=== PATIENT | male | born 1965 | race Caucasian/White ===

== ENCOUNTER → 2017-01-08 | Outpatient (CLI) | payer OTHER | LOC: BHCLAF 13:30 | PROVIDERS: ATTEND Internal Medicine Cardiovascular Disease | DX: I10 Essential (primary) hypertension (principal); G47.33 Obstructive sleep apnea (adult) (pediatric); E11.9 Type 2 diabetes mellitus without complications; E78.5 Hyperlipidemia, unspecified | CPT/HCPCS: 93005-PO ==

== ENCOUNTER → 2017-01-14 | Outpatient (CLI) | payer OTHER | LOC: BHFA 13:00 | PROVIDERS: ATTEND Internal Medicine Cardiovascular Disease | DX: Z01.810 Encounter for preprocedural cardiovascular examination (principal); I10 Essential (primary) hypertension | CPT/HCPCS: 78452; 93017; A9500; J2785 ==

== ENCOUNTER 2017-02-08 05:45 | Inpatient (IN) | payer OTHER ==
[2017-01-10 10:58] LABS: % IMMATURE GRANULYOCYTES 0.5 % (0.0-1.1); ABSOLUTE IMMATURE GRANULOCYTES 0.03 10^3/uL (0.00-0.10); ADD DIFF? NO; ADD MORPH? NO; ADD SCAN? NO; ATYPICAL LYMPHOCYTE FLAG 0 (0-99); FRAGMENT RBC FLAG 0 (0-99); HEMATOCRIT 44.4 % (40.0-51.0); HEMOGLOBIN 15.7 g/dL (13.7-17.5); LEFT SHIFT FLG 0 (0-99); LIPEMIA HEMOLYSIS FLAG 90 (0-99); MEAN CELL HEMOGLOBIN CONCENTR. 35.4 g/dL (32.4-36.7); MEAN CELL VOLUME 90.4 fL (81.5-99.8); MEAN PLATELET VOLUME 10.1 fL (8.7-11.7); PLATELET CLUMPS FLAG 0 (0-99); PLATELET COUNT 173 10^3/uL (150-400); RED BLOOD CELL COUNT 4.91 10^6/uL (4.40-6.38); RED CELL DISTRIBUTION WIDTH 12.9 % (11.5-15.2)
[2017-01-10 11:27] LABS: ANION GAP 12 mEq/L (8-16); CALCIUM 9.9 mg/dL (8.5-10.4); CARBON DIOXIDE 27 mEq/l (22-31); CHLORIDE 100 mEq/L (97-110); CREATININE 1.1 mg/dL (0.7-1.3); GLOMERULAR FILTRATION RATE > 60; GLUCOSE 162 mg/dL (70-100); POTASSIUM 4.7 mEq/L (3.5-5.2); SODIUM 139 mEq/L (134-144)
[2017-02-08] MEDS ORDERED: CHLORHEXIDINE GLUC HIBICLENS 118 ML BTL TP ONE (06:00)
[2017-02-08] MEDS ORDERED: ceFAZolin 3 GM in D5W 100 ML IV ONE (06:00)
[2017-02-08] MEDS ORDERED: LIDOCAINE 1% 5 ML SDV ONE (06:02)
[2017-02-08] MEDS ORDERED: MIDAZOLAM 2 MG/2 ML VIAL ONE (07:01)
[2017-02-08] MEDS ORDERED: THROMBIN (BOVINE) 20,000 UNIT VIAL TP ONE (07:06)
[2017-02-08] MEDS ORDERED: BACITRACIN 50,000 UNITS/10 ML SYR IRR ONE (07:06)
[2017-02-08] MEDS ORDERED: BUPIVACAINE 0.5% 30 ML SDV ONE (07:06)
[2017-02-08] MEDS ORDERED: CITRATE DEXTROSE SOLN 500 ML BAG ONE (07:07)
[2017-02-08] MEDS ORDERED: LIDOCAINE 1% 5 ML SDV ID PRN (07:19)
[2017-02-08] MEDS ORDERED: LR 1,000 ML IV ONE (07:19)
[2017-02-08] MEDS ORDERED: REMIFENTANIL HCL 1 MG VIAL ONE ×2 (07:25→09:40)
[2017-02-08] MEDS ORDERED: fentaNYL 250 MCG/5 ML INJ ONE (07:25)
[2017-02-08] MEDS ORDERED: KETAMINE 100 MG/10 ML SYR IVP ONE (07:25)
[2017-02-08] MEDS ORDERED: PROPOFOL 200 MG/20 ML VIAL ONE (07:26)
[2017-02-08] MEDS ORDERED: PROPOFOL/EMULSION 500 MG/50 ML BOTTLE IV ONE ×2 (07:26→09:40)
[2017-02-08] MEDS ORDERED: ROCURONIUM 50 MG/5 ML VIAL ONE ×2 (08:02)
[2017-02-08] MEDS ORDERED: ROCURONIUM 100 MG/10 ML VIAL ONE (08:10)
[2017-02-08] MEDS ORDERED: HYDROmorphONE/DILAUDID 2 MG/ML INJ ONE (10:53)
[2017-02-08] MEDS ORDERED: MAGNESIUM HYDROXIDE 30 ML UDCUP PO PRN (11:25)
[2017-02-08] MEDS ORDERED: ONDANSETRON DISINTEGRATING 4 MG TAB PO PRN (11:25)
[2017-02-08] MEDS ORDERED: ONDANSETRON 4 MG/2 ML VIAL IVP PRN (11:25)
[2017-02-08] MEDS ORDERED: diphenhydrAMINE 25 MG CAP PO PRN (11:25)
[2017-02-08] MEDS ORDERED: DIAZEPAM 10 MG/2 ML SYR IVP PRN (11:25)
[2017-02-08] MEDS ORDERED: LACTULOSE 20 GM/30 ML UDCUP PO PRN (11:25)
[2017-02-08] MEDS ORDERED: BISACODYL 10 MG SUPP PR PRN (11:25)
[2017-02-08] MEDS ORDERED: HYDROmorphONE/DILAUDID 1 MG/ML SYR IVP PRN (11:25)
[2017-02-08] MEDS ORDERED: METHOCARBAMOL 750 MG TAB PO PRN (11:25)
--- NOTE | 2017-02-08 11:27 | GOP ---
[f rep st] OPERATIVE REPORT DATE OF OPERATION: 02/08/2017 SURGEON: David Concepcion MD CO-SURGEON: Hussain Cline MD MOLD TOOLING TECHNICIAN: lAka Carrasco PA-C ANESTHESIA: General. PREOPERATIVE DIAGNOSIS: 1. History of lumbar spinal fusion L3-S1 with pseudoarthrosis at L5-S1. 2. 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 3. Intractable back pain and left lower extremity radiculopathy. 4. Treatment refractory to nonoperative intervention. POSTOPERATIVE DIAGNOSIS: 1. History of lumbar spinal fusion L3-S1 with pseudoarthrosis and hardware failure at L5-S1. 2. 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 3. Intractable back pain and left lower extremity radiculopathy. 4. Treatment refractory to nonoperative intervention. PROCEDURE PERFORMED: 1. Re-do anterior L5-S1 lumbar diskectomy with exploration of spinal fusion, removal of interbody cage and Interbody fusion using an 18 mm, 12 degree perimeter PEEK cage filled with morselized autograft. 2. Anterior lumbar fusion L5-S1 with a Medtronic Pivox plate. 3. Use of intraoperative fluoroscopy, less than 1 hour physician time. 4. Use of neuromonitoring. FINDINGS: Per imaging. SPECIMENS: The interbody cage was sent to Pathology for gross specimen. ESTIMATED BLOOD LOSS: 100 mL. INDICATIONS: The patient is a 52-year-old gentleman who has undergone a prior L3-S1 fusion back in 2014. He did well for some time and then noted worsening leg pain with back pain. Imaging studies demonstrated a pseudoarthrosis at L5- S1 with loose hardware and a recurrent disk herniation at the L5-S1 level on the left side with foraminal and nerve compression. After discussion of the risks, benefits, and treatment alternatives, and after failing nonoperative intervention, we decided to proceed forth with the surgery as described above. DESCRIPTION OF PROCEDURE: Patient was brought to the operating theater and underwent general endotracheal anesthesia without complications. He had Venodyne's, DAMON hose, and appropriate lines placed by Anesthesia. The patient was maintained supine on the operating room table and a small bump placed under the small of his lumbar spine. Using lateral fluoroscopy, Dr. Hussain Cline and his team marked out an anterior abdominal incision which would give us the best approach to the L5-S1 level. This was marked. The anterior abdomen was then prepped and draped in usual sterile surgical fashion. A time-out was completed per protocol. The patient received antibiotics within [address] Cline and his team will then dictate in a separate operative report the anterior approach to the L5-S1 level. Once we confirmed the level, our team was called into the surgical room. At this point, we completed a re-do L5-S1 diskectomy with the use of the 11 blade and curettes and Kerrison punches. We explored the fusion and noted that the interbody cage was in broken in several fragments. We removed the previous fragmented cage and sent it off to Pathology for gross analysis. We then completed a discectomy and prepared the cartilaginous endplates. We measured the interbody space and placed an 18 mm, 12 degree perimeter PEEK cage filled with morselized autograft into the L5-S1 disk space. We achieved excellent distraction of the foramina bilaterally in comparison to his pre-imaging films. At this point, we secured a large Medtronic Pivox plate onto the vertebral bodies of L5 and S1 with 1 screw into L5 and 1 screw into S1. There was a large osteophyte on the inferior aspect of the L5 vertebral body near the endplate, but I could not drill this down secondary to the fact that the vasculature was lying over the osteophyte and was tethered to this area by scar and inflammatory tissue. AP and lateral x- rays demonstrated excellent placement of the hardware. At this point, Dr. Cline his team will dictate in a separate op report the abdominal closure. There were no complications and neuromonitoring was stable throughout. COMPLICATIONS: None. /[id number]/MODL MTDD
[2017-02-08] MEDS ORDERED: FLUTICASONE NASAL 120 SPRAYS/16 GM MDI EACHNARE PRN (11:29)
[2017-02-08] MEDS ORDERED: COLCHICINE 0.6 MG CAP/TAB PO PRN (11:29)
[2017-02-08] MEDS ORDERED: NON-FORMULARY NEW DRUG (Propylene Glycol [Systane Balance] 1 DROP) EACHEYE PRN (11:29)
[2017-02-08] MEDS ORDERED: fentaNYL 100 MCG/2 ML INJ ONE (11:33)
[2017-02-08] MEDS ORDERED: NON-FORMULARY NEW DRUG (Dextroamphetamine/Amphetamine [Adderall 30 Mg Tablet] 30 MG) PO SCH (12:00)
[2017-02-08] MEDS: clonazePAM 0.5 MG TAB PO SCH ×2 (14:00→17:36)
[2017-02-08] MEDS ORDERED: ZIPRASIDONE HCL 80 MG PO SCH (14:00)
[2017-02-08] MEDS: ZIPRASIDONE HCL 80 MG PO SCH ×3 (14:00→20:14)
[2017-02-08] MEDS: GABAPENTIN 300 MG CAP PO SCH ×2 (14:00→20:02)
[2017-02-08] MEDS: ACETAMINOPHEN 325 MG TAB PO PRN (14:25)
[2017-02-08] MEDS: oxyCODONE IR 5 MG TAB PO PRN ×2 (14:26→22:44)
[2017-02-08] MEDS: DIVALPROEX NA 500 MG TAB PO SCH ×2 (17:32→20:02)
[2017-02-08] MEDS: METOPROLOL TARTRATE 100 MG TAB PO SCH (17:32)
[2017-02-08] MEDS: ALLOPURINOL 300 MG TAB PO SCH (17:32)
--- NOTE | 2017-02-08 17:35 | POSTOPPROG ---
Post Op Note Date of Operation: 02/08/17 Surgeon: David Concepcion Media Professional: BRISEIDA Carrasco PAC Anesthesia: GET(General Endotracheal) Pre-op Diagnosis: Pseudoarthrosis, lumbar stenosis Post-op Diagnosis: Pseudoarthrosis, lumbar stenosis Indication: failure of medical management, pseudoarthrosis, lumbar stenosis Procedure: L5/S1 ALIF Inf/Abcess present in the surg proc area at time of surgery?: No EBL: Minimal PA Addendum - Addendum .: S: leg pain improved O: NAD A&Ox3 MAEx4 5/5 and equal in BUE and BLE Abd soft, dressing c/d/i A/P 52y/o male s/p L5/S1 ALIF -Diet per general surgery -Optimize pain management -PT/OT -DVT prophx: TEDs, SCDs, Lovenox okay POD1 -Post op xrays pending -Please notify NS with any change in neuro/motor exam
[2017-02-08] MEDS: DOXAZOSIN MESYLATE 4 MG TAB PO SCH (20:01)
[2017-02-08] MEDS: SENNOSIDES/DOCUSATE SODIUM TAB PO SCH (20:03)
[2017-02-08] MEDS: BENZTROPINE MESYLATE 1 MG TAB PO SCH (20:05)
[2017-02-08] MEDS: ATORVASTATIN CALCIUM 20 MG TAB PO SCH (20:05)
[2017-02-08] MEDS: (Melatonin [Melatonin] 10 MG) PO SCH (20:08)
[2017-02-08] MEDS: tiZANidine HCL 2 MG TAB PO SCH (20:20)
[2017-02-08] MEDS: AMANTADINE HCL 100 MG CAP PO SCH (20:21)
[2017-02-08] MEDS ORDERED: (Melatonin [Melatonin] 10 MG) PO SCH ×2 (21:00)
[2017-02-08] MEDS ORDERED: MELATONIN 10 MG PO SCH (21:00)
[2017-02-08] MEDS ORDERED: AMANTADINE HCL 100 MG CAP PO SCH (21:00)
[2017-02-08] MEDS ORDERED: FAMOTIDINE 20 MG/NACL 50 ML IV SCH (21:00)
[2017-02-08] MEDS: DIAZEPAM 5 MG TAB PO PRN (22:37)
--- NOTE | 2017-02-09 00:14 | GOP ---
[f rep st] OPERATIVE REPORT DATE OF OPERATION: 02/08/2017 SURGEON: Hussain Cline MD ANESTHESIA: General endotracheal anesthesia. ANESTHESIOLOGIST: Dr. Marroquin. PREOPERATIVE DIAGNOSIS: Spinal instability with pseudoarthrosis L5-S1 joint. POSTOPERATIVE DIAGNOSIS: Spinal instability with pseudoarthrosis L5-S1 joint. PROCEDURE PERFORMED: Anterior spine exposure of the L5-S1 joint. FINDINGS: ESTIMATED BLOOD LOSS: Negligible from my portion of the procedure. DESCRIPTION OF PROCEDURE: The patient was taken to the operating room and received a satisfactory general endotracheal anesthesia by Dr. Marroquin. He was placed in the supine position, prepped and draped in the usual sterile fashion. A Pfannenstiel-type lower abdominal incision was made and carried through the subcutaneous tissue. Rectus sheath was incised bilaterally, and the rectus sheath was elevated up off the rectus muscles above and below the incision. The peritoneum was then entered in the midline, and the rectus muscles were retracted laterally. The small bowel and colon were packed away. The retroperitoneum was entered over the sacral prominence. The sacral vessels were multiply hemoclipped and divided, and the L5-S1 joint space was identified fluoroscopically, and then further exposed. The left common iliac vein was mobilized and retracted cephalad, as was the right iliac artery. Adequate exposure was achieved using the Omni retractor for surgery on the anterior disk space. Hemostasis was assured. The case was then turned over to Dr. Concepcion for anterior fusion. That was completed. We then closed the retroperitoneum with a running 2-0 Vicryl suture. The peritoneum was closed with a running 0 Vicryl suture. The fascia was closed with #1 PDS suture for the rectus sheath. The skin was closed with skin dhaval. The wound was infiltrated with 0.5% Marcaine. He tolerated the procedure quite well. COMPLICATIONS: No complications. DISPOSITION: He was taken to the recovery room in good condition. /[id number]/MODL MTDD
[2017-02-09] MEDS: ACETAMINOPHEN 325 MG TAB PO PRN ×2 (05:11→23:29)
[2017-02-09] MEDS: oxyCODONE IR 5 MG TAB PO PRN ×2 (06:29→12:50)
[2017-02-09] MEDS ORDERED: AMPHETAMINE PO SCH (07:00)
[2017-02-09] MEDS: clonazePAM 0.5 MG TAB PO SCH ×3 (07:26→18:16)
[2017-02-09] MEDS: tiZANidine HCL 2 MG TAB PO SCH ×2 (07:26→21:37)
[2017-02-09] MEDS: GABAPENTIN 300 MG CAP PO SCH ×3 (07:27→21:37)
[2017-02-09] MEDS: METOPROLOL TARTRATE 100 MG TAB PO SCH ×2 (07:27→18:48)
[2017-02-09] MEDS: BENZTROPINE MESYLATE 1 MG TAB PO SCH ×2 (07:27→21:38)
[2017-02-09] MEDS: ALLOPURINOL 300 MG TAB PO SCH ×2 (07:28→18:16)
[2017-02-09] MEDS: ZIPRASIDONE HCL 80 MG PO SCH ×4 (07:29→21:40)
[2017-02-09] MEDS: NS W/ 20 KCl/L 1,000 ML IV SCH (07:29)
[2017-02-09] MEDS ORDERED: NON-FORMULARY NEW DRUG (Metformin Hcl [Glucophage 1000 Mg] 1,000 MG) PO SCH (08:00)
--- NOTE | 2017-02-09 08:20 | SOAPPROG ---
SOAP Progress Note Assessment/Plan: Assessment: status post anterior spine exposure L5-S1 / wound okay/ abdomen soft / negative flatus Plan: clear liquids 02/09/17 08:19 Objective: Vital Signs Temp Pulse Resp BP Pulse Ox 37.4 C 82 16 166/94 H 93 02/09/17 04:57 02/09/17 04:57 02/09/17 04:57 02/09/17 04:57 02/09/17 04:57 Laboratory Results 01/10/17 10:52 01/10/17 10:52 02/08/17 02/09/17 02/10/17 05:59 05:59 05:59 Intake Total 5170 Output Total 3500 Balance 1670 ICD10 Worksheet Patient Problems: Problems Problem Status Onset SATHISH (acute kidney injury) Acute Arthrodesis status Acute Diabetes Acute HTN (hypertension) Acute Lumbago due to displacement of intervertebral disc Acute Lumbar stenosis Acute Pain Acute
[2017-02-09] MEDS: metFORMIN HCL 500 MG TAB PO SCH ×2 (08:42→18:16)
[2017-02-09] MEDS: SENNOSIDES/DOCUSATE SODIUM TAB PO SCH ×2 (08:42→21:39)
[2017-02-09] MEDS: FAMOTIDINE 20 MG TAB PO SCH ×2 (08:43→21:39)
[2017-02-09] MEDS: AMPHETAMINE PO SCH ×4 (09:29→12:53)
--- NOTE | 2017-02-09 10:29 | SOAPPROG ---
SOAP Progress Note Assessment/Plan: Assessment: POD1 s/p L5-S1 ALIF -Xrays -pain control -diet per gen surgery -hold lovenox at midnight saturday for surgery saturday -PT/OT -TEDS/SCD's, lovenox Please call with change in neuro status 02/09/17 10:25 Subjective: Doing well, leg pain completely resolved, pain well controlled, No complaints this AM Objective: Vital Signs Temp Pulse Resp BP Pulse Ox 36.4 C 72 16 99/52 L 93 02/09/17 08:19 02/09/17 08:19 02/09/17 08:19 02/09/17 08:19 02/09/17 08:19 Laboratory Results 01/10/17 10:52 01/10/17 10:52 02/08/17 02/09/17 02/10/17 05:59 05:59 05:59 Intake Total 5170 Output Total 3500 Balance 1670 AandOx3, wearing CPAP, MAEWx 4 03/15 ICD10 Worksheet Patient Problems: Problems Problem Status Onset SATHISH (acute kidney injury) Acute Arthrodesis status Acute Diabetes Acute HTN (hypertension) Acute Lumbago due to displacement of intervertebral disc Acute Lumbar stenosis Acute Pain Acute
[2017-02-09] MEDS: LISINOPRIL 40 MG TAB PO SCH (10:37)
[2017-02-09] MEDS: ENOXAPARIN 40 MG/0.4 ML SYR SC SCH (12:54)
[2017-02-09] MEDS: DIVALPROEX NA 500 MG TAB PO SCH ×2 (15:01→21:38)
[2017-02-09] MEDS: POLYETHYLENE GLYCOL 3350 17 GM PKT PO PRN (21:36)
[2017-02-09] MEDS: ATORVASTATIN CALCIUM 20 MG TAB PO SCH (21:38)
[2017-02-09] MEDS: DOXAZOSIN MESYLATE 4 MG TAB PO SCH (21:38)
[2017-02-09] MEDS: (Melatonin [Melatonin] 10 MG) PO SCH (21:40)
[2017-02-09] MEDS ORDERED: AMANTADINE HCL 100 MG CAP PO ONE (22:00)
[2017-02-09] MEDS: AMANTADINE HCL 100 MG CAP PO SCH (22:39)
[2017-02-10] MEDS: NS W/ 20 KCl/L 1,000 ML IV SCH (01:27)
[2017-02-10] MEDS: oxyCODONE IR 5 MG TAB PO PRN ×2 (01:27→06:45)
[2017-02-10] MEDS: DIAZEPAM 5 MG TAB PO PRN (01:28)
[2017-02-10] MEDS: BENZTROPINE MESYLATE 1 MG TAB PO SCH ×2 (06:38→20:24)
[2017-02-10] MEDS: METOPROLOL TARTRATE 100 MG TAB PO SCH ×2 (06:39→18:29)
[2017-02-10] MEDS: tiZANidine HCL 2 MG TAB PO SCH ×2 (06:39→20:22)
[2017-02-10] MEDS: ALLOPURINOL 300 MG TAB PO SCH ×2 (06:39→18:29)
[2017-02-10] MEDS: clonazePAM 0.5 MG TAB PO SCH ×3 (06:39→18:29)
[2017-02-10] MEDS: GABAPENTIN 300 MG CAP PO SCH ×3 (06:40→20:24)
[2017-02-10] MEDS: ZIPRASIDONE HCL 80 MG PO SCH ×4 (06:41→20:25)
[2017-02-10] MEDS: POLYETHYLENE GLYCOL 3350 17 GM PKT PO PRN ×2 (07:25→20:20)
[2017-02-10] MEDS: AMPHETAMINE PO SCH ×2 (07:25→13:02)
[2017-02-10] MEDS: LISINOPRIL 40 MG TAB PO SCH (10:11)
[2017-02-10] MEDS: ENOXAPARIN 40 MG/0.4 ML SYR SC SCH (10:11)
[2017-02-10] MEDS: metFORMIN HCL 500 MG TAB PO SCH ×2 (10:11→18:29)
[2017-02-10] MEDS: SENNOSIDES/DOCUSATE SODIUM TAB PO SCH ×2 (10:12→20:22)
[2017-02-10] MEDS: FAMOTIDINE 20 MG TAB PO SCH ×2 (10:13→20:23)
--- NOTE | 2017-02-10 10:33 | SOAPPROG ---
SOAP Progress Note Assessment/Plan: Assessment: POD2 s/p L5-S1 ALIF -Xrays -pain control: well controlled -diet per gen surgery: appreciate management -hold lovenox at midnight saturday for surgery saturday -PT/OT -TEDS/SCD's, lovenox Please call with change in neuro status 02/09/17 10:25 02/10/17 10:31 Subjective: Doing well, pain well controlled, denies leg pain, no new complaints Objective: Vital Signs Temp Pulse Resp BP Pulse Ox 37.7 C 88 16 126/60 H 90 L 02/10/17 09:23 02/10/17 09:23 02/10/17 09:23 02/10/17 09:23 02/10/17 09:23 Laboratory Results 01/10/17 10:52 01/10/17 10:52 02/09/17 02/10/17 02/11/17 05:59 05:59 05:59 Intake Total 5170 750 Output Total 3500 800 Balance 1670 -50 sleeping but easily arousable, AandOx3, CNII-XII intact, MAEWx4 5/5 - Pending Discharge Pending Discharge Within 24 Hours: No ICD10 Worksheet Patient Problems: Problems Problem Status Onset SATHISH (acute kidney injury) Acute Arthrodesis status Acute Diabetes Acute HTN (hypertension) Acute Lumbago due to displacement of intervertebral disc Acute Lumbar stenosis Acute Pain Acute
--- NOTE | 2017-02-10 11:52 | SOAPPROG ---
SOAP Progress Note Assessment/Plan: Assessment: s/p exposure for alif Some flatus Very sleepy Can advance diet when more alert and passing more flatus S: Napping, awakes but falls asleep again CPAP in place BS hypoactive, brace in place. Not tender Plan: 02/10/17 11:51 Objective: Vital Signs Temp Pulse Resp BP Pulse Ox 37.7 C 88 16 126/60 H 90 L 02/10/17 09:23 02/10/17 09:23 02/10/17 09:23 02/10/17 09:23 02/10/17 09:23 Laboratory Results 01/10/17 10:52 01/10/17 10:52 02/09/17 02/10/17 02/11/17 05:59 05:59 05:59 Intake Total 5170 750 Output Total 3500 800 Balance 1670 -50 ICD10 Worksheet Patient Problems: Problems Problem Status Onset SATHISH (acute kidney injury) Acute Arthrodesis status Acute Diabetes Acute HTN (hypertension) Acute Lumbago due to displacement of intervertebral disc Acute Lumbar stenosis Acute Pain Acute
[2017-02-10] MEDS: DIVALPROEX NA 500 MG TAB PO SCH ×2 (16:11→20:23)
[2017-02-10] MEDS: DOXAZOSIN MESYLATE 4 MG TAB PO SCH (20:23)
[2017-02-10] MEDS: ATORVASTATIN CALCIUM 20 MG TAB PO SCH (20:24)
[2017-02-10] MEDS: (Melatonin [Melatonin] 10 MG) PO SCH (20:25)
[2017-02-10] MEDS: AMANTADINE HCL 100 MG CAP PO SCH (20:26)
[2017-02-11 01:07] LABS: BASE EXCESS -1.7 mEq/L (-2.5-2.5); BICARBONATE 23 mEq/L (22-26); MEASURED OXYGEN SATURATION 94 % (92-95); PCO2 41 mmHg (34-38); PO2 73 mmHg (65-75); TCO2 24 mEq/L (23-27)
[2017-02-11 01:11] LABS: CPAP YES
[2017-02-11] MEDS: ZIPRASIDONE HCL 80 MG PO SCH ×4 (06:37→19:58)
[2017-02-11] MEDS: clonazePAM 0.5 MG TAB PO SCH ×3 (06:38→17:29)
[2017-02-11] MEDS: tiZANidine HCL 2 MG TAB PO SCH ×2 (06:38→19:56)
[2017-02-11] MEDS: GABAPENTIN 300 MG CAP PO SCH ×3 (06:38→19:56)
[2017-02-11] MEDS: ALLOPURINOL 300 MG TAB PO SCH ×2 (06:38→17:30)
[2017-02-11] MEDS: METOPROLOL TARTRATE 100 MG TAB PO SCH ×2 (06:38→17:30)
[2017-02-11] MEDS: BENZTROPINE MESYLATE 1 MG TAB PO SCH ×2 (06:39→19:56)
[2017-02-11] MEDS: AMPHETAMINE PO SCH ×2 (08:04→12:52)
--- NOTE | 2017-02-11 08:05 | NEUSURGPN ---
Assessment/Plan: POD3 s/p L5-S1 ALIF -pain control: well controlled -diet per gen surgery: appreciate management -hold lovenox for surgery tomorrow -PT/OT -TEDS/SCD's, lovenox Please call with change in neuro status Subjective: Denies any leg pain Objective: NAD A&Ox3 MAEx4 / and equal in BUE and BLE. Catheter Insertion Date: 02/08/17 - Physician Patient Seen by : Carlene Neurosurgery Physical Exam - Vitals, I&O, Labs I and O 02/10/17 02/11/17 02/12/17 05:59 05:59 05:59 Intake Total 750 250 Output Total 800 Balance -50 250 Intake: Oral (ml) 750 250 Output: Urine (ml) 800 Catheter 800 Other: Intake Quantity Yes Yes Sufficient Number of Voids Catheter 2 Incontinence 1 Toilet 2 Bladder Scan Volume (ml) Catheter 361 Vital Signs Temp Pulse Resp BP Pulse Ox 37.2 C 84 16 102/54 L 91 L 02/11/17 07:46 02/11/17 07:46 02/11/17 07:46 02/11/17 07:46 02/11/17 07:46 Laboratory Results 01/10/17 10:52 01/10/17 10:52 ICD10 Worksheet Patient Problems: Problems Problem Status Onset SATHISH (acute kidney injury) Acute Arthrodesis status Acute Diabetes Acute HTN (hypertension) Acute Lumbago due to displacement of intervertebral disc Acute Lumbar stenosis Acute Pain Acute
[2017-02-11] MEDS: metFORMIN HCL 500 MG TAB PO SCH ×2 (08:07→17:29)
[2017-02-11] MEDS: LISINOPRIL 40 MG TAB PO SCH (08:08)
[2017-02-11] MEDS: SENNOSIDES/DOCUSATE SODIUM TAB PO SCH ×2 (08:08→19:56)
[2017-02-11] MEDS: FAMOTIDINE 20 MG TAB PO SCH ×2 (08:09→19:56)
[2017-02-11] MEDS: oxyCODONE IR 5 MG TAB PO PRN (08:16)
--- NOTE | 2017-02-11 11:10 | SOAPPROG ---
SOAP Progress Note Assessment/Plan: Assessment: 52yo male s/p anterior ab exposure for spine surgery Tolerating clears but only taking in small amount because difficult to sit up given recent spine surgery. Passing gas. PE in bed, laying flat abdomen mild distension, staple line clean dry intact, nontender to palpation Plan: ADAT gen surgery will sign off, call if any issues arise, dhaval out approx 12 days from surgery in our office or NSG. 02/11/17 11:08 Objective: Vital Signs Temp Pulse Resp BP Pulse Ox 37.2 C 84 16 104/57 L 91 L 02/11/17 07:46 02/11/17 07:46 02/11/17 07:46 02/11/17 08:08 02/11/17 07:46 Laboratory Results 01/10/17 10:52 01/10/17 10:52 02/10/17 02/11/17 02/12/17 05:59 05:59 05:59 Intake Total 750 250 Output Total 800 Balance -50 250 ICD10 Worksheet Patient Problems: Problems Problem Status Onset SATHISH (acute kidney injury) Acute Arthrodesis status Acute Diabetes Acute HTN (hypertension) Acute Lumbago due to displacement of intervertebral disc Acute Lumbar stenosis Acute Pain Acute
[2017-02-11] MEDS: HYDROCODONE/APAP 10/325 TAB PO PRN (17:29)
[2017-02-11] MEDS: DIVALPROEX NA 500 MG TAB PO SCH ×2 (17:29→19:56)
[2017-02-11] MEDS: DOXAZOSIN MESYLATE 4 MG TAB PO SCH (19:56)
[2017-02-11] MEDS: ATORVASTATIN CALCIUM 20 MG TAB PO SCH (19:56)
[2017-02-11] MEDS: (Melatonin [Melatonin] 10 MG) PO SCH (19:57)
[2017-02-11] MEDS: AMANTADINE HCL 100 MG CAP PO SCH (19:57)
[2017-02-12] MEDS: DIAZEPAM 5 MG TAB PO PRN (04:46)
[2017-02-12] MEDS ORDERED: ceFAZolin 2 GM/DEXTROSE 100 ML IV ONE (05:00)
[2017-02-12] MEDS: BENZTROPINE MESYLATE 1 MG TAB PO SCH ×2 (05:45→21:33)
[2017-02-12] MEDS: ZIPRASIDONE HCL 80 MG PO SCH ×5 (05:45→23:01)
[2017-02-12] MEDS: METOPROLOL TARTRATE 100 MG TAB PO SCH ×2 (05:45→17:47)
[2017-02-12] MEDS: GABAPENTIN 300 MG CAP PO SCH ×3 (05:56→21:35)
[2017-02-12] MEDS ORDERED: BACITRACIN 50,000 UNITS/10 ML SYR IRR ONE ×2 (06:41→12:33)
[2017-02-12] MEDS ORDERED: SKIN ADHESIVE (DERMABOND) 1 EACH TP ONE ×3 (06:41→17:43)
[2017-02-12] MEDS ORDERED: BUPIVACAINE/EPI 0.25% 30 ML SDV ONE ×2 (06:41→12:33)
[2017-02-12] MEDS ORDERED: CITRATE DEXTROSE SOLN 500 ML BAG ONE (06:41)
[2017-02-12] MEDS ORDERED: THROMBIN (BOVINE) 20,000 UNIT VIAL TP ONE ×3 (06:41→12:38)
[2017-02-12 07:13] LABS: ANION GAP 7 mEq/L (8-16); CALCIUM 9.3 mg/dL (8.5-10.4); CARBON DIOXIDE 26 mEq/l (22-31); CHLORIDE 102 mEq/L (97-110); CREATININE 1.1 mg/dL (0.7-1.3); GLOMERULAR FILTRATION RATE > 60; GLUCOSE 145 mg/dL (70-100); POTASSIUM 4.6 mEq/L (3.5-5.2); SODIUM 135 mEq/L (134-144)
[2017-02-12] MEDS: ALLOPURINOL 300 MG TAB PO SCH ×2 (07:15→17:47)
[2017-02-12] MEDS: clonazePAM 0.5 MG TAB PO SCH ×3 (07:16→17:47)
[2017-02-12] MEDS: AMPHETAMINE PO SCH ×2 (07:16→13:01)
[2017-02-12] MEDS: metFORMIN HCL 500 MG TAB PO SCH ×2 (07:16→17:47)
[2017-02-12] MEDS: tiZANidine HCL 2 MG TAB PO SCH ×2 (07:16→21:41)
[2017-02-12] MEDS: FAMOTIDINE 20 MG TAB PO SCH ×2 (07:16→21:34)
[2017-02-12] MEDS: LISINOPRIL 40 MG TAB PO SCH (07:17)
[2017-02-12] MEDS: SENNOSIDES/DOCUSATE SODIUM TAB PO SCH ×2 (07:17→21:37)
--- NOTE | 2017-02-12 07:40 | NEUSURGPN ---
Assessment/Plan: POD4 s/p L5-S1 ALIF -pain control: well controlled - patient with some confusion this morning and hallucinations. He is non-focal and able to communicate but sleepy throughout the conversation. Appears to be over medicated. The patient's mother and anesthesia agree. The one medication that was given this morning was Valium and may be contributing. - We will check STAT head CT to ensure no stroke or other intracranial issues., as well as a UA and CBC. His lytes appears to be fine. - We will delay his surgery this morning and plan for later this afternoon and see if his confusion clears up. - Subjective: Denies any leg pain Objective: NAD A&Ox3 MAEx4 5/5 and equal in BUE and BLE. Confused to date and location but is able to recognize his mother. Exam is non-focal. Urinary Catheter in Place: Yes Urinary Catheter Indication: Other (Use Comment) (to OR for stage II surgery.) Catheter Insertion Date: 02/12/17 - Physician Patient Seen by : Carlene Neurosurgery Physical Exam - Vitals, I&O, Labs I and O 02/11/17 02/12/17 02/13/17 05:59 05:59 05:59 Intake Total 250 400 Output Total 2320 Balance 250 -1920 Intake: Oral (ml) 250 400 Output: Urine (ml) 2320 Catheter 2320 Other: Intake Quantity Yes Yes Sufficient Number of Voids Toilet 2 Number of Stools Toilet 1 Vital Signs Temp Pulse Resp BP Pulse Ox 37.3 C 98 16 149/90 H 94 02/11/17 23:23 02/12/17 03:54 02/12/17 03:54 02/12/17 03:54 02/12/17 03:54 Laboratory Results 02/12/17 06:45 02/12/17 06:45 ICD10 Worksheet Patient Problems: Problems Problem Status Onset SATHISH (acute kidney injury) Acute Arthrodesis status Acute Diabetes Acute HTN (hypertension) Acute Lumbago due to displacement of intervertebral disc Acute Lumbar stenosis Acute Pain Acute
[2017-02-12 08:00] LABS: % IMMATURE GRANULYOCYTES 0.4 % (0.0-1.1); ABSOLUTE IMMATURE GRANULOCYTES 0.03 10^3/uL (0.00-0.10); ADD DIFF? NO; ADD MORPH? NO; ADD SCAN? NO; ATYPICAL LYMPHOCYTE FLAG 0 (0-99); FRAGMENT RBC FLAG 0 (0-99); HEMATOCRIT 34.2 % (40.0-51.0); HEMOGLOBIN 11.7 g/dL (13.7-17.5); LEFT SHIFT FLG 0 (0-99); LIPEMIA HEMOLYSIS FLAG 90 (0-99); MEAN CELL HEMOGLOBIN 30.9 pg (27.9-34.1); MEAN CELL HEMOGLOBIN CONCENTR. 34.2 g/dL (32.4-36.7); MEAN CELL VOLUME 90.2 fL (81.5-99.8); MEAN PLATELET VOLUME 10.3 fL (8.7-11.7); PLATELET CLUMPS FLAG 40 (0-99); PLATELET COUNT 175 10^3/uL (150-400); RED BLOOD CELL COUNT 3.79 10^6/uL (4.40-6.38); RED CELL DISTRIBUTION WIDTH 12.5 % (11.5-15.2)
[2017-02-12 08:39] LABS: COLOR PALE YELLOW; LEUKOCYTE ESTERASE,URINE NEGATIVE (NEGATIVE); NITRITE,URINE NEGATIVE (NEGATIVE)
[2017-02-12 08:44] LABS: MUCUS TRACE /lpf (NONE-1+)
[2017-02-12] MEDS: ACETAMINOPHEN 325 MG TAB PO PRN (09:12)
--- NOTE | 2017-02-12 12:29 | NEUSURGPN ---
Assessment/Plan: - I spoke with patient's ELIZABETH Haq over the phone and discussed the 2 options for her father Dirk. Option 1 being let him recover here in the hospital and once psychosis has resolved, discharge him and bring him back for the stage 2 lumbar surgery in the next few weeks. Option 2 would be to proceed with surgery today as planned. Dr. Cam of anesthesia feels it would be OK for Dirk to undergo general anesthesia given that his labs are ok and HCT did not reveal any concerning findings. -Eun has chosen to proceed with surgery today. Verbal consent obtained over the phone. Patient's mother and also aide in room witnessed. We will proceed with the stage 2 lumbar surgery this afternoon. D/w Dr Concepcion as well. Catheter Insertion Date: 02/12/17 - Physician Discussed Patient with Dr.: Concepcion Neurosurgery Physical Exam - Vitals, I&O, Labs I and O 02/11/17 02/12/17 02/13/17 05:59 05:59 05:59 Intake Total 250 400 Output Total 2320 1600 Balance 250 -1920 -1600 Intake: Oral (ml) 250 400 Output: Urine (ml) 2320 1600 Catheter 2320 1600 Other: Intake Quantity Yes Yes Sufficient Number of Voids Catheter 1 Toilet 2 Number of Stools Toilet 1 Vital Signs Temp Pulse Resp BP Pulse Ox 37.0 C 87 18 151/78 H 92 02/12/17 11:44 02/12/17 11:44 02/12/17 11:44 02/12/17 11:44 02/12/17 11:44 Laboratory Results 02/12/17 07:50 02/12/17 06:45 ICD10 Worksheet Patient Problems: Problems Problem Status Onset SATHISH (acute kidney injury) Acute Arthrodesis status Acute Diabetes Acute HTN (hypertension) Acute Lumbago due to displacement of intervertebral disc Acute Lumbar stenosis Acute Pain Acute
[2017-02-12] MEDS ORDERED: REMIFENTANIL HCL 1 MG VIAL ONE ×3 (12:30→16:35)
[2017-02-12] MEDS ORDERED: PROPOFOL/EMULSION 500 MG/50 ML BOTTLE IV ONE ×3 (12:31→16:35)
[2017-02-12] MEDS ORDERED: ROCURONIUM 50 MG/5 ML VIAL ONE (12:33)
[2017-02-12] MEDS ORDERED: DEXAMETHASONE 4 MG/ML VIAL ONE (12:34)
[2017-02-12] MEDS ORDERED: fentaNYL 100 MCG/2 ML INJ ONE ×4 (14:03→19:05)
[2017-02-12] MEDS: DIVALPROEX NA 500 MG TAB PO SCH ×2 (15:36→20:00)
[2017-02-12] MEDS ORDERED: morphINE PF 5 MG/10 ML INJ ONE (16:30)
[2017-02-12] MEDS ORDERED: ONDANSETRON 4 MG/2 ML VIAL ONE (17:03)
--- NOTE | 2017-02-12 18:22 | POSTOPPROG ---
Post Op Note Date of Operation: 02/12/17 Surgeon: Amalia Evangelista Fan Mail Editor: Eleni Evangelista PA-C Anesthesiologist: Dr Clement Cam Anesthesia: GET(General Endotracheal) Pre-op Diagnosis: lumbar pseudoarthrosis, adjacent level breakdown Post-op Diagnosis: same Indication: hardware failure, pain, non-union Procedure: L4-S1 hardware removal, L34 TLIF, L3-S1 posterior fusion Findings: loose S1 hardware, DDD Inf/Abcess present in the surg proc area at time of surgery?: No Depth: Organ Space EBL: 100-500 Complications: none Drains: Karthik Jensen (x1) Specimen(s): none ELIESER Addendum - Addendum .: S: Pt awake in PACU, c/o back pain O: Awake but sleepy NAD VSS MAEx4 Motor 5/5 BUE/BLE - poor effort A & P incisions dressed cdi JPx1 Barboza in A: 52 yo M s/p L4-S1 hardware removal, L34 TLIF, L3-S1 posterior fusion P: PT/OT Pain management Brace when OOB Post op xrays pending DC barboza in AM Follow RENNY output Advance diet as tolerated TEDs, SCDs, lovenox POD#1 Call NS with any issues
[2017-02-12] MEDS ORDERED: METOPROLOL TARTRATE 5 MG/5 ML INJ ONE (18:42)
[2017-02-12] MEDS: NS W/ 20 KCl/L 1,000 ML IV SCH (19:58)
[2017-02-12] MEDS: AMANTADINE HCL 100 MG CAP PO SCH (21:32)
[2017-02-12] MEDS: ATORVASTATIN CALCIUM 20 MG TAB PO SCH (21:33)
[2017-02-12] MEDS: DOXAZOSIN MESYLATE 4 MG TAB PO SCH (21:34)
[2017-02-12] MEDS: (Melatonin [Melatonin] 10 MG) PO SCH (21:35)
[2017-02-12] MEDS: POLYETHYLENE GLYCOL 3350 17 GM PKT PO SCH (21:36)
[2017-02-13] MEDS: HYDROCODONE/APAP 10/325 TAB PO PRN ×2 (05:16→19:41)
--- NOTE | 2017-02-13 06:57 | GOP ---
[f rep st] OPERATIVE REPORT DATE OF OPERATION: 02/12/2017 SURGEON: David Concepcion MD ELECTRICAL CONTROLS TECHNICIAN: First pollard, Amalia Evangelista, BEVERLY. ANESTHESIA: General. PREOPERATIVE DIAGNOSIS: 1. L5-S1 pseudoarthrosis, status post prior L4-S1 fusion. 2. Low back pain. 3. Left lower extremity radiculopathy. 4. Treatment refractory to nonoperative intervention. POSTOPERATIVE DIAGNOSIS: 1. L5-S1 pseudoarthrosis, status post prior L4-S1 fusion. 2. Low back pain. 3. Left lower extremity radiculopathy. 4. Treatment refractory to nonoperative intervention. 5. Hardware failure. SURGERY: Please note this is stage II of a 2-staged planned surgery. Stage I was an anterior lumbar interbody revision surgery at L5-S1. He now presents for posterior fusion stabilization. PROCEDURE PERFORMED: 1. Posterior arthrodesis with approach at L3, L4, L5, and S1. 2. Posterolateral fusion with new bilateral pedicle screw placement into L3 from the Medtronic Solera system. 3. Removal and replacement of bilateral pedicle screws in L4, L5, S1 from the Medtronic Solera system. 4. Posterolateral fusion on the right between L3 and L4 with morselized autograft and allograft. 5. Left-sided L3-L4 hemilaminotomy with mesial facetectomy, foraminotomy, and nerve decompression. 6. Left-sided L3-L4 transforaminal lumbar interbody fusion with a 10 x 20 mm titanium PEEK elevate cage with morselized autograft and allograft. 7. Exploration of prior lumbar fusion, L4 through S1. 8. Use of intraoperative 3D Stealth navigation. 9. Use of intraoperative fluoroscopy, less than 1-hour physician time. 10. Use of neuromonitoring. 11. Use of the operating microscope. 12. Injection of preservative-free intrathecal narcotics. 13. Placement of bone cement around the left S1 pedicle screw. FINDINGS: There was malfunction of the hardware on the right side at L5-S1 level, with pseudoarthrosis. SPECIMENS: None. ESTIMATED BLOOD LOSS: 150 mL. INDICATIONS: The patient is a 52-year-old gentleman, who has undergone a prior L4 through S1 fusion several years ago. He presented with worsening left lower extremity radiculopathy with low back pain. He was found to have a pseudoarthrosis at L5-S1 with loose hardware. Plan was to undergo a redo anterior lumbar interbody fusion at L5-S1 as a staged procedure, which was completed several days ago. He presents now for the second stage. The patient was noted to be somewhat confused prior to induction of anesthesia for stage II ; however, we spoke extensively with the patient's POA as well as his mother, and felt that this was secondary to the patient not being able to take his psychiatric medications as scheduled from his prior n.p.o. status and anterior lumbar surgery. We decided to proceed forth with surgical intervention as described above. The patient already consented for the procedure on the day before, when he was lucid. DESCRIPTION OF PROCEDURE: Patient brought to the operating theater and underwent general endotracheal anesthesia without complications. He had Venodynes, DAMON hose, and appropriate lines placed. He was flipped prone onto the Karthik table and all bony processes inspected and padded. The previous lumbar incision was identified, and prepped and draped in the usual sterile surgical fashion. A time-out was completed per protocol, and the patient received antibiotics within 1 hour of incision. Using lateral fluoroscopy and a spinal needle, we then picked our entry point at the L3 through S1 levels. This was marked in the midline. The incision was then infiltrated with Marcaine with epinephrine. The incision was taken down through with the scalpel blade. Then using the monopolar, the incision was taken down in the midline through the lumbodorsal fascia, to the spinous process of L3. We then skived off laterally and completed a subperiosteal dissection at L3-L4, and identified the prior hardware at the L4 levels. We then exposed the remainder of the hardware at L4, L5, and S1 bilaterally. The right-sided S1 cap screw was noted to be floating in the soft tissues, and this was subsequently removed. We then explored the hardware, which was noted to be consistent with a pseudoarthrosis at the L5-S1 level. At this point, we sequentially removed the cap screws from the bilateral L4, L5, and left S1 levels, as well as the bilateral rods from the L4-S1 levels. We then sequentially removed the bilateral pedicle screws from L4, L5, and S1. The bilateral S1 screws were noted to be quite loose consistent with the haloing on his CT scan, and we were able to pull these out easily. At this point, we replaced the bilateral L4 screws with 7.5 x 45 mm screws, as well as bilaterally at L5 with 7.5 x 45 mm screws. We then placed an 8.5 x 45 mm screw on the right S1. We used bone cement from the Kyphon system and injected it into the left S1 screw hole, at which point we placed a 9.5 x 40 mm screw into the left S1 hole. At this point, we attached the 3D Stealth navigation clamp to the spinous process of L4 and completed a 3D Stealth navigation spin. Using 3D Stealth navigation, we placed the charter pilot holes for the bilateral L3 pedicle screws. Both holes were manually palpated with evidence of any cortical breaches. We placed a 6.5 x 60 mm screw in the left L3, and a 6.5 x 50 mm screw into the right L3. Another 3D Stealth navigation spin demonstrated good placement of the hardware. Next, the microscope was brought into the field to assist with microscopic dissection and to maintain illumination and magnification. Using the bur tip on the drill bit, Leksell rongeur, and Kerrison punches, we completed a left-sided L3-L4 hemilaminotomy with mesial facetectomy and resection of the pars, as well as foraminotomy. We distracted the L3-L4 disk space and completed a left-sided L3-L4 diskectomy. We prepared the cartilaginous endplates and measured interbody space. We placed a 10 x 20 mm titanium PEEK elevated cage filled with morselized autograft and allograft anteriorly and towards the midline. We packed additional morcellized autograft into the disk space for the interbody fusion. We let down distraction and decorticated the bone on the right side between L3 and L4. We placed 2 lordotic rods into the heads of the screws between L3 and S1 and secured them down with cap screws which were tightened to the screen printing press operator's setting. We placed morselized autograft and allograft on the right side between L3 and L4 for the posterolateral fusion. We irrigated the wound copiously with bacitracin irrigation, and injected preservative-free intrathecal narcotics. A drain was left in the subfascial space, and the wound then closed in multiple layers using Vicryl sutures in the deep layers and Dermabond for the skin. The patient's wounds were dressed sterilely. He was then flipped supine onto the transfer cart, and was still asleep at the time of this dictation. There were no complications and no noted changes on neuromonitoring throughout the procedure. COMPLICATIONS: None. /[id number]/MODL PRECIOUS
[2017-02-13 07:20] LABS: % IMMATURE GRANULYOCYTES 0.6 % (0.0-1.1); ABSOLUTE IMMATURE GRANULOCYTES 0.05 10^3/uL (0.00-0.10); ADD DIFF? NO; ADD MORPH? NO; ADD SCAN? NO; ATYPICAL LYMPHOCYTE FLAG 0 (0-99); FRAGMENT RBC FLAG 0 (0-99); HEMATOCRIT 29.8 % (40.0-51.0); HEMOGLOBIN 10.2 g/dL (13.7-17.5); LEFT SHIFT FLG 0 (0-99); LIPEMIA HEMOLYSIS FLAG 90 (0-99); MEAN CELL HEMOGLOBIN 31.6 pg (27.9-34.1); MEAN CELL HEMOGLOBIN CONCENTR. 34.2 g/dL (32.4-36.7); MEAN CELL VOLUME 92.3 fL (81.5-99.8); PLATELET CLUMPS FLAG 0 (0-99); PLATELET COUNT 146 10^3/uL (150-400); RED BLOOD CELL COUNT 3.23 10^6/uL (4.40-6.38); RED CELL DISTRIBUTION WIDTH 13.7 % (11.5-15.2)
--- NOTE | 2017-02-13 07:43 | NEUSURGPN ---
Date of Surgery: 02/12/17 Post Op Day: 1 Assessment/Plan: Assessment: 52 yo M s/p L4-S1 hardware removal, L3/4 TLIF, L3-S1 posterior fusion POD #1 Plan: -s/p TLIF L3-S1: pt states expected lower back pain, legs feel fine -no confused this am, AAO x 4 -PT/OT-CPM -Pain management -Brace when OOB -Post op xrays pending -DC barboza this AM -Follow RENNY output -Advance diet as tolerated -TEDs, SCDs, lovenox POD#1 -Call NS with any issues Subjective: Awake and alert. NAD. Eating/drinking and voiding. No f/c/n/v/d. Objective: Awake and alert. AAO x 4, NAD AFVSS/MAEx4 Motor 5/5 BUE/BLE A & P incisions dressed cdi JPx1 Barboza in-to be removed this am Neuro Check Frequency: per routine Urinary Catheter in Place: Yes Urinary Catheter Indication: Other (Use Comment) (to be removed this am) Catheter Insertion Date: 02/12/17 - Physician Discussed Patient with : Carlene Neurosurgery Physical Exam - Vitals, I&O, Labs I and O 02/12/17 02/13/17 02/14/17 05:59 05:59 05:59 Intake Total 400 3550 Output Total 2320 3855 Balance -1920 -305 Intake: Oral (ml) 400 1000 IV Intake (ml) 1750 IV Infused (ml) 800 NS W/ 20 KCl/L 1,000 ml @ 700 75 mls/hr IV CONT GEOVANY Rx #:[id number] ceFAZolin 1 GM/DEXTROSE 100 50 ml @ 200 mls/hr IV Q8H GEOVANY Rx#:[id number] Output: Urine (ml) 2320 3350 Catheter 2320 3350 Estimated Blood Loss (ml) 100 Wound Drainage (ml) 405 Left Back Karthik Jensen 405 Other: Intake Quantity Yes Sufficient Number of Voids Catheter 1 Number of Stools Toilet 1 Vital Signs Temp Pulse Resp BP Pulse Ox 36.9 C 90 17 146/85 H 97 02/13/17 04:00 02/13/17 04:00 02/13/17 04:00 02/13/17 04:00 02/13/17 04:00 Laboratory Results 02/13/17 07:10 ICD10 Worksheet Patient Problems: Problems Problem Status Onset ASTHISH (acute kidney injury) Acute Arthrodesis status Acute Diabetes Acute HTN (hypertension) Acute Lumbago due to displacement of intervertebral disc Acute Lumbar stenosis Acute Pain Acute
[2017-02-13 07:53] LABS: ANION GAP 8 mEq/L (8-16); CALCIUM 8.8 mg/dL (8.5-10.4); CARBON DIOXIDE 27 mEq/l (22-31); CHLORIDE 102 mEq/L (97-110); GLOMERULAR FILTRATION RATE > 60; GLUCOSE 132 mg/dL (70-100); POTASSIUM 5.2 mEq/L (3.5-5.2); SODIUM 137 mEq/L (134-144)
[2017-02-13] MEDS: LISINOPRIL 40 MG TAB PO SCH (08:05)
[2017-02-13] MEDS: FAMOTIDINE 20 MG TAB PO SCH ×2 (08:05→20:40)
[2017-02-13] MEDS: tiZANidine HCL 2 MG TAB PO SCH ×2 (08:05→20:47)
[2017-02-13] MEDS: metFORMIN HCL 500 MG TAB PO SCH ×2 (08:05→17:44)
[2017-02-13] MEDS: ALLOPURINOL 300 MG TAB PO SCH ×2 (08:05→17:45)
[2017-02-13] MEDS: clonazePAM 0.5 MG TAB PO SCH ×3 (08:05→17:45)
[2017-02-13] MEDS: GABAPENTIN 300 MG CAP PO SCH ×3 (08:05→20:46)
[2017-02-13] MEDS: BENZTROPINE MESYLATE 1 MG TAB PO SCH ×2 (08:05→20:46)
[2017-02-13] MEDS: POLYETHYLENE GLYCOL 3350 17 GM PKT PO SCH ×3 (08:06→20:40)
[2017-02-13] MEDS: METOPROLOL TARTRATE 100 MG TAB PO SCH ×2 (08:06→17:45)
[2017-02-13] MEDS: SENNOSIDES/DOCUSATE SODIUM TAB PO SCH ×2 (08:06→20:40)
[2017-02-13] MEDS: ZIPRASIDONE HCL 80 MG PO SCH ×4 (08:07→20:48)
[2017-02-13] MEDS: AMPHETAMINE PO SCH ×2 (08:27→12:47)
[2017-02-13] MEDS: DIVALPROEX NA 500 MG TAB PO SCH ×2 (15:40→19:38)
[2017-02-13] MEDS: ENOXAPARIN 40 MG/0.4 ML SYR SC SCH (15:41)
[2017-02-13] MEDS: DOXAZOSIN MESYLATE 4 MG TAB PO SCH (20:46)
[2017-02-13] MEDS: ATORVASTATIN CALCIUM 20 MG TAB PO SCH (20:47)
[2017-02-13] MEDS: AMANTADINE HCL 100 MG CAP PO SCH (20:47)
[2017-02-13] MEDS: (Melatonin [Melatonin] 10 MG) PO SCH (20:48)
[2017-02-14] MEDS: ENOXAPARIN 40 MG/0.4 ML SYR SC SCH (08:10)
[2017-02-14] MEDS: metFORMIN HCL 500 MG TAB PO SCH ×2 (08:10→17:19)
[2017-02-14] MEDS: GABAPENTIN 300 MG CAP PO SCH ×3 (08:10→20:46)
[2017-02-14] MEDS: LISINOPRIL 40 MG TAB PO SCH (08:10)
[2017-02-14] MEDS: SENNOSIDES/DOCUSATE SODIUM TAB PO SCH ×2 (08:11→20:46)
[2017-02-14] MEDS: METOPROLOL TARTRATE 100 MG TAB PO SCH ×2 (08:11→17:19)
[2017-02-14] MEDS: tiZANidine HCL 2 MG TAB PO SCH ×2 (08:11→20:45)
[2017-02-14] MEDS: POLYETHYLENE GLYCOL 3350 17 GM PKT PO SCH ×3 (08:11→20:47)
[2017-02-14] MEDS: clonazePAM 0.5 MG TAB PO SCH ×3 (08:11→17:19)
[2017-02-14] MEDS: BENZTROPINE MESYLATE 1 MG TAB PO SCH ×2 (08:11→20:46)
[2017-02-14] MEDS: FAMOTIDINE 20 MG TAB PO SCH ×2 (08:11→20:46)
[2017-02-14] MEDS: ALLOPURINOL 300 MG TAB PO SCH ×2 (08:11→17:19)
[2017-02-14] MEDS: ZIPRASIDONE HCL 80 MG PO SCH ×4 (08:12→20:47)
--- NOTE | 2017-02-14 08:19 | NEUSURGPN ---
Assessment/Plan: Assessment: 52 yo M s/p L4-S1 hardware removal, L3/4 TLIF, L3-S1 posterior fusion POD #2 Plan: -s/p TLIF L3-S1: pt states expected lower back pain, legs feel fine -no confused this am, AAO x 4 -PT/OT-CPM -Pain management -Brace when OOB -Post op xrays show stable hardware -Follow RENNY output - likely remove this afternoon -Advance diet as tolerated -TEDs, SCDs, on lovenox -Call NS with any issues -D/w Dr Concepcion this am. Pt seen by Dr Concepcion as well this AM. Subjective: Pt resting in bedside chair. Remembers me from the office. States he is doing well. No leg symptoms. Objective: AAOx3 NAD VSS MAEx4 Motor 5/5 BLE Incision dressed - some bloody dc on dressing. JPx1 Urinary Catheter in Place: No Catheter Insertion Date: 02/12/17 - Physician Discussed Patient with : Carlene Patient Seen by : Carlene Neurosurgery Physical Exam - Vitals, I&O, Labs I and O 02/13/17 02/14/17 02/15/17 05:59 05:59 05:59 Intake Total 3550 1650 Output Total 3855 1070 Balance -305 580 Intake: Oral (ml) 1000 1650 IV Intake (ml) 1750 IV Infused (ml) 800 NS W/ 20 KCl/L 1,000 ml @ 700 75 mls/hr IV CONT GEOVANY Rx #:[id number] ceFAZolin 1 GM/DEXTROSE 100 50 ml @ 200 mls/hr IV Q8H GEOVANY Rx#:[id number] Output: Urine (ml) 3350 900 Catheter 3350 Toilet 900 Estimated Blood Loss (ml) 100 Wound Drainage (ml) 405 170 Left Back Karthik Jensen 405 170 Other: Number of Voids Catheter 1 Toilet 2 Vital Signs Temp Pulse Resp BP Pulse Ox 37.9 C 77 16 134/65 H 91 L 02/14/17 04:00 02/14/17 04:00 02/14/17 04:00 02/14/17 04:00 02/14/17 04:00 Laboratory Results 02/13/17 07:10 02/13/17 07:10 ICD10 Worksheet Patient Problems: Problems Problem Status Onset SATHISH (acute kidney injury) Acute Arthrodesis status Acute Diabetes Acute HTN (hypertension) Acute Lumbago due to displacement of intervertebral disc Acute Lumbar stenosis Acute Pain Acute
[2017-02-14] MEDS: AMPHETAMINE PO SCH ×2 (08:43→13:25)
[2017-02-14] MEDS: HYDROCODONE/APAP 10/325 TAB PO PRN (11:36)
[2017-02-14] MEDS: DIVALPROEX NA 500 MG TAB PO SCH ×2 (17:19→20:46)
[2017-02-14] MEDS: DOXAZOSIN MESYLATE 4 MG TAB PO SCH (20:45)
[2017-02-14] MEDS: ATORVASTATIN CALCIUM 20 MG TAB PO SCH (20:46)
[2017-02-14] MEDS: (Melatonin [Melatonin] 10 MG) PO SCH (20:47)
[2017-02-14] MEDS: AMANTADINE HCL 100 MG CAP PO SCH (20:47)
[2017-02-15] MEDS: HYDROCODONE/APAP 10/325 TAB PO PRN ×3 (06:03→18:10)
--- NOTE | 2017-02-15 08:06 | NEUSURGPN ---
Assessment/Plan: Assessment: 52 yo M s/p L4-S1 hardware removal, L3/4 TLIF, L3-S1 posterior fusion POD #3 Plan: -s/p TLIF L3-S1: pt states expected lower back pain, legs feel fine -no confused this am, AAO x 4 -PT/OT-CPM -Pain management -Brace when OOB - getting new brace fit, his old one from a prior sx is too small -Post op xrays show stable hardware -Daily dressing changes -Advance diet as tolerated -TEDs, SCDs, on lovenox -Call NS with any issues -D/w Dr Concepcion this am. -Dispo: OK for DC to rehab/SNF once placement obtained Subjective: Pt resting in bed, states he is just waking up. Pain is well managed. Agrees his brace is too small and ok with getting a new one. Objective: AAOx3 NAD VSS MAEx4 Motor 5/5 BLE A & P incisions dressed +LT Urinary Catheter in Place: No Catheter Insertion Date: 02/12/17 - Physician Discussed Patient with : Carlene Neurosurgery Physical Exam - Vitals, I&O, Labs I and O 02/14/17 02/15/17 02/16/17 05:59 05:59 05:59 Intake Total 1650 500 Output Total 1070 820 Balance 580 -320 Intake: Oral (ml) 1650 500 Output: Urine (ml) 900 800 Toilet 900 800 Wound Drainage (ml) 170 20 Left Back Karthik Jensen 170 20 Other: Intake Quantity Yes Sufficient Number of Voids Toilet 2 2 Number of Stools Toilet 1 Microbiology 02/12/17 19:30 Urine Culture - Final Urine,Catheterized Vital Signs Temp Pulse Resp BP Pulse Ox 37.2 C 79 16 120/67 95 02/15/17 04:00 02/15/17 04:00 02/15/17 04:00 02/15/17 04:00 02/15/17 04:00 Laboratory Results 02/13/17 07:10 02/13/17 07:10 ICD10 Worksheet Patient Problems: Problems Problem Status Onset SATHISH (acute kidney injury) Acute Arthrodesis status Acute Diabetes Acute HTN (hypertension) Acute Lumbago due to displacement of intervertebral disc Acute Lumbar stenosis Acute Pain Acute
[2017-02-15] MEDS: ENOXAPARIN 40 MG/0.4 ML SYR SC SCH (08:41)
[2017-02-15] MEDS: metFORMIN HCL 500 MG TAB PO SCH ×2 (08:42→17:22)
[2017-02-15] MEDS: BENZTROPINE MESYLATE 1 MG TAB PO SCH (08:42)
[2017-02-15] MEDS: GABAPENTIN 300 MG CAP PO SCH ×2 (08:43→12:35)
[2017-02-15] MEDS: LISINOPRIL 40 MG TAB PO SCH (08:44)
[2017-02-15] MEDS: clonazePAM 0.5 MG TAB PO SCH ×3 (08:44→17:23)
[2017-02-15] MEDS: METOPROLOL TARTRATE 100 MG TAB PO SCH ×2 (08:44→17:23)
[2017-02-15] MEDS: FAMOTIDINE 20 MG TAB PO SCH (08:44)
[2017-02-15] MEDS: SENNOSIDES/DOCUSATE SODIUM TAB PO SCH (08:44)
[2017-02-15] MEDS: tiZANidine HCL 2 MG TAB PO SCH (08:45)
[2017-02-15] MEDS: ALLOPURINOL 300 MG TAB PO SCH ×2 (08:45→17:22)
[2017-02-15] MEDS: ZIPRASIDONE HCL 80 MG PO SCH ×3 (08:50→17:20)
[2017-02-15] MEDS: AMPHETAMINE PO SCH ×2 (08:52→12:35)
[2017-02-15] MEDS: POLYETHYLENE GLYCOL 3350 17 GM PKT PO SCH ×2 (08:52→15:33)
[2017-02-15 13:57] VITALS: RESP 12
--- NOTE | 2017-02-15 15:09 | PDIAF ---
- Diagnosis Code Status: Full Code - Medication Management Discharge Medications: Medications to Continue on Transfer Ascorbic Acid [Vitamin C 500 mg (*)] 1,000 mg PO DAILY@0700 07/28/15 [Last Taken 01/31/17] Benztropine Mesylate [Cogentin] 0.5 mg PO BID@0700,2100 07/28/15 [Last Taken ] Fluticasone Nasal [Flonase Nasal [place]] 1 sprays EACHNARE DAILY PRN 07/28/15 [ Last Taken 08/16/15] Gabapentin [Neurontin 300 MG (*)] 600 mg PO TID@0700,1400,209907/28/15 [Last Taken 02/07/17] Metoprolol Tartrate [Lopressor 100 mg (*)] 100 mg PO BID@,07/28/15 [Last Taken 02/07/17] Propylene Glycol [Systane Balance] 1 drop EACHEYE PRN PRN 07/28/15 [Last Taken 01/31/17] amLODIPine BESYLATE [Norvasc 10 mg (*)] 10 mg PO DAILY@07 07/28/15 [Last Taken 02/07/17] clonazePAM [Klonopin (*)] 0.5 mg PO TID@0700,1400,1800 07/28/15 [Last Taken ] tiZANidine HCL [Zanaflex 2MG (*)] 4 mg PO BID@0700,209907/28/15 [Last Taken ] Doxazosin Mesylate [Cardura 4 MG (*)] 8 mg PO HS #30 tab 08/19/15 [Last Taken ] Allopurinol [Allopurinol 300 MG (RX)] 300 mg PO BID@,12/28/16 [Last Taken 02/07/17] Amantadine HCl [Symmetrel] 100 mg PO HS 12/28/16 [Last Taken 02/07/17] Atorvastatin Calcium [Lipitor 20 mg (*)] 20 mg PO HS 12/28/16 [Last Taken ] Colchicine [Colchicine (*)] 1.8 mg PO DAILY PRN 12/28/16 [Last Taken 02/07/17] Dextroamphetamine/Amphetamine [Adderall 30 mg Tablet] 30 mg PO BID@07,12 [Last Taken 02/07/17] Divalproex Sodium [Depakote] 1,000 mg PO BID@1600,2000 12/28/16 [Last Taken ] Lisinopril [Zestril 40 mg (*)] 40 mg PO DAILY 12/28/16 [Last Taken 02/07/17] Melatonin 10 mg PO HS 12/28/16 [Last Taken 01/31/17] Ziprasidone HCl [Geodon] 80 mg PO 07,14,18,21 12/28/16 [Last Taken 02/07/17] metFORMIN HCL [Glucophage 1000 mg] 1,000 mg PO BIDMEAL 12/28/16 [Last Taken ] HYDROcodone/APAP 10/325 [[place] 10/325 (*)] 1 tab PO Q4 PRN #90 tab 02/15/17 [ Last Taken Unknown] Methocarbamol [Robaxin 750 mg (*)] 750 mg PO QID PRN #0 tab 02/15/17 [Last Taken Unknown] Sennosides/Docusate Sodium [Senokot-S] 1 - 2 tab PO BID #0 tab 02/15/17 [Last Taken Unknown] Discharge Medications: Refer to the Discharge Home Medication list for PRN reason. PICC Care - Routine: N/A - Orders Services needed: Registered Nurse, Physical Therapy, Occupational Therapy Diet Recommendation: no restrictions on diet Diet Texture: Regular Texture Diet Wound Care Instructions: Teri in abdominal wall should come out around February 21-, this can be done by Dr Cline office, rehab, or neurosurgery office. If coming to Dr Cline office please call [phone] to make appointment with Julius or [facility] Physician Assistants. Ok to shower over teri, no need to cover. - Follow Up Care Current Providers and Referrals: Tony Krishna MD [Primary Care Provider] - David Concepcion MD [Medical Doctor] - follow up in 2 weeks
[2017-02-15] MEDS: DIVALPROEX NA 500 MG TAB PO SCH (15:29)
[2017-02-15 15:51] VITALS: TEMP 98.1; O2SAT 90
[2017-02-15 17:28] VITALS: BP 116/62; PULSE 84
== END 2017-02-15 18:14 | DRG 455 ==
LOC: F3N 05:45
PROVIDERS: ADMIT Neurological Surgery; ATTEND Neurological Surgery
PROC: 0SP00AZ Removal of Interbody Fusion Device from Lumbar Vertebral Joint, Open Approach (ICD-10-PCS; principal; 2017-02-08 07:15)
PROC: 0SB20ZZ Excision of Lumbar Vertebral Disc, Open Approach (ICD-10-PCS; principal; 2017-02-08 07:15)
PROC: 0SG00A0 Fusion of Lumbar Vertebral Joint with Interbody Fusion Device, Anterior Approach, Anterior Column, Open Approach (ICD-10-PCS; principal; 2017-02-08 07:15)
PROC: 00NY0ZZ Release Lumbar Spinal Cord, Open Approach (ICD-10-PCS; 2017-02-12 07:15)
PROC: 0SG00AJ Fusion of Lumbar Vertebral Joint with Interbody Fusion Device, Posterior Approach, Anterior Column, Open Approach (ICD-10-PCS; 2017-02-12 07:15)
PROC: 0SG1071 Fusion of 2 or more Lumbar Vertebral Joints with Autologous Tissue Substitute, Posterior Approach, Posterior Column, Open Approach (ICD-10-PCS; 2017-02-12 07:15)
DX: M96.0 Pseudarthrosis after fusion or arthrodesis (principal); M51.36 Other intervertebral disc degeneration, lumbar region; M47.896 Other spondylosis, lumbar region; F31.9 Bipolar disorder, unspecified; E11.9 Type 2 diabetes mellitus without complications; I10 Essential (primary) hypertension
CPT/HCPCS: 97116-GP; 97162-GP; 97164-GP; 97165-GO; 97530-GO; 97530-GP; 97535-GO; C1713; C1762; G8978-GP-CJ; G8979-GP-CI; G8987-GO-CI; G8988-GO-CI; J0690; J1100; J1170; J1650; J2250; J2274; J2405; J2704; J3010; J7060

== ENCOUNTER → 2017-03-26 | Outpatient (CLI) | payer OTHER | LOC: FIMAGING 15:18 | PROVIDERS: ATTEND Family Medicine | DX: R60.0 Localized edema (principal) | CPT/HCPCS: 80048-PO ==

== ENCOUNTER → 2017-03-26 | Outpatient (CLI) | payer OTHER | LOC: FIMAGING 16:17 | PROVIDERS: ATTEND Physician Assistant Surgical | DX: Z47.89 Encounter for other orthopedic aftercare (principal); Z98.1 Arthrodesis status ==

== ENCOUNTER → 2017-05-06 | Outpatient (CLI) | payer OTHER | LOC: EDSTATUS 11:05 → FLAB 13:41 → FIMAGING 13:41 | PROVIDERS: ATTEND Physician Assistant Surgical | DX: Z98.1 Arthrodesis status (principal) ==

== ENCOUNTER → 2017-06-19 | Outpatient (CLI) | payer OTHER | LOC: CIMAGING 10:37 | PROVIDERS: ATTEND Family Medicine | DX: M79.641 Pain in right hand (principal) | CPT/HCPCS: 73120-PO ==

== ENCOUNTER → 2017-06-20 | Outpatient (CLI) | payer OTHER | LOC: SBRMNEURO 20:00 | PROVIDERS: ATTEND Internal Medicine Pulmonary Disease | DX: G47.33 Obstructive sleep apnea (adult) (pediatric) (principal) ==

== ENCOUNTER → 2017-08-06 | Outpatient (CLI) | payer OTHER | LOC: FIMAGING 09:49 | PROVIDERS: ATTEND Physician Assistant | DX: Z09 Encounter for follow-up examination after completed treatment for conditions other than malignant neoplasm (principal); Z98.1 Arthrodesis status ==

== ENCOUNTER 2018-03-10 10:18 | Day surgery (SDC) | payer OTHER ==
[2018-03-10] MEDS ORDERED: PROPOFOL 200 MG/20 ML VIAL ONE (10:53)
[2018-03-10 11:07] LABS: INR 0.92 (0.83-1.16); PROTIME(PATIENT) 12.6 SEC (12.0-15.0)
[2018-03-10] MEDS ORDERED: PROPOFOL/EMULSION 500 MG/50 ML BOTTLE IV ONE (11:15)
[2018-03-10] MEDS ORDERED: NS 1,000 ML IV SCH (12:00)
--- NOTE | 2018-03-10 12:09 | PDGENHP ---
History & Physical Chief Complaint: suspected L5/S1 hardware infection History of Present Illness: post revision fusion. CT findings worrisome for infection at 5/1 disc space Relevant Physical Exam: nad Cardiorespiratory Assessment: rrr, nl wob
--- NOTE | 2018-03-10 12:10 | PDPROPOC ---
Sedation Plan of Care Sedation Plan of Care: mental status noted, patient educated of risks, benefits , alternatives, patient can tolerate sedation ASA Classification: ASA 3 Planned drugs: other (per anaesthesia) Mallampati Score: Class 3 Mallampati Reference Image:
[2018-03-10] MEDS ORDERED: NALOXONE HCL 0.4 MG/ML INJ IVP PRN (12:44)
--- NOTE | 2018-03-10 12:44 | PDANEPAE ---
ANE History of Present Illness CT Guided Biopsy L5/S1 Disc ANE Past Medical History - Cardiovascular History Hx Hypertension: Yes Hx Arrhythmias: No Hx Chest Pain: No Hx Coronary Artery / Peripheral Vascular Disease: No Hx CHF / Valvular Disease: No Hx Palpitations: No - Pulmonary History Hx COPD: No Hx Asthma/Reactive Airway Disease: No Hx Recent Upper Respiratory Infection: No Hx Oxygen in Use at Home: No Hx Sleep Apnea: Yes Sleep Apnea Screening Result - Last Documented: Positive Pulmonary History Comment: Sleep apnea w/ CPAP; - Neurologic History Hx Cerebrovascular Accident: No Hx Seizures: No Hx Dementia: No - Endocrine History Hx Diabetes: Yes Endocrine History Comment: DM II FOR THE PAST 5 OR 6 YRS AGO - Renal History Hx Renal Disorders: No Renal History Comment: CHILDHOOD KIDNEY SURG - Liver History Hx Hepatic Disorders: No - Neurological & Psychiatric Hx Hx Neurological and Psychiatric Disorders: Yes Neurological / Psychiatric History Comment: BIPOLAR W/PSYCHOTIC TENDENCY; - Cancer History Hx Cancer: No - Congenital Disorder History Hx Congenital Disorders: Yes Congenital History Comment: KIDNEY CONGENITAL ABNORMALITY - GI History Hx Gastrointestinal Disorders: No Gastrointestinal History Comment: Gas; - Other Health History Other Health History: NEG - Chronic Pain History Chronic Pain: Yes (BACK PAIN & SHOULDER L; b leg) - Surgical History Prior Surgeries: L4/5, L5/S1 FUSION W/ INSTRUMENTATION 08/2015. ING HERNIA REPAIR L. KIDNEY SURG CHILDHOOD;. SHOULDER R REPLACEMENT. VASECTOMY. COLONOSCOPIES X2. MASSES REMOVED FROM CHEST AREA; ANE Review of Systems Review of Systems: - Exercise capacity METS (RN): 3 METS ANE Patient History - Allergies Allergies/Adverse Reactions: carbamazepine [From Tegretol] Allergy (Verified 07/28/15 13:24) Hives ramelteon [From Rozerem] Allergy (Verified 07/28/15 13:24) Hives vortioxetine hydrobromide [From Brintellix] Allergy (Verified 07/28/15 13:24) Hives anticonvulsant Allergy (Uncoded 03/10/18 11:08) - Home Medications Home Medications: Ascorbic Acid [Vitamin C 500 mg (*)] 1,000 mg PO DAILY@0700 07/28/15 [Last Taken 01/31/17] Benztropine Mesylate [Cogentin] 0.5 mg PO DAILY 07/28/15 [Last Taken 02/07/17] Gabapentin [Neurontin 300 MG (*)] 600 mg PO TID@0700,1400,2100 07/28/15 [Last Taken 02/07/17] Metoprolol Tartrate [Lopressor 100 mg (*)] 100 mg PO BID@,18 07/28/15 [Last Taken 02/07/17] Propylene Glycol [Systane Balance] 1 drop EACHEYE PRN PRN 07/28/15 [Last Taken 01/31/17] amLODIPine BESYLATE [Norvasc 10 mg (*)] 10 mg PO DAILY@07/28/15 [Last Taken 02/07/17] clonazePAM [Klonopin (*)] 0.5 mg PO TID@0700,1400,1800 07/28/15 [Last Taken ] Allopurinol [Allopurinol 300 MG (RX)] 300 mg PO BID@,12/28/16 [Last Taken 02/07/17] Amantadine HCl [Symmetrel] 30 mg PO BID 12/28/16 [Last Taken 02/07/17] Atorvastatin Calcium [Lipitor 20 mg (*)] 20 mg PO HS 12/28/16 [Last Taken ] Colchicine [Colchicine (*)] 1.8 mg PO DAILY PRN 12/28/16 [Last Taken 02/07/17] Dextroamphetamine/Amphetamine [Adderall 30 mg Tablet] 30 mg PO BID@07,12 [Last Taken 02/07/17] Divalproex Sodium [Depakote] 1,000 mg PO BID@1600,2000 12/28/16 [Last Taken ] Lisinopril [Zestril 40 mg (*)] 40 mg PO DAILY 12/28/16 [Last Taken 02/07/17] Melatonin 5 mg PO HS 12/28/16 [Last Taken 01/31/17] Ziprasidone HCl [Geodon] 80 mg PO BID 12/28/16 [Last Taken 02/07/17] metFORMIN HCL [Glucophage 1000 mg] 1,000 mg PO BIDMEAL 12/28/16 [Last Taken ] Diclofenac Potassium 50 mg PO BID 03/07/18 [Last Taken Unknown] Doxazosin Mesylate [Cardura 4 MG (*)] 8 mg PO DAILY 03/07/18 [Last Taken Unknown ] Fish Oil 1000 mg (*) 1,600 mg PO BID 03/07/18 [Last Taken Unknown] Furosemide 40 mg PO DAILY 03/07/18 [Last Taken Unknown] Glucosamine-Chondroitin Tablet 1,500 mg PO BID 03/07/18 [Last Taken Unknown] Ipratropium 0.06% Nasal 1 spray TID 03/07/18 [Last Taken Unknown] Methocarbamol [Robaxin 750 mg (*)] 750 mg PO BID PRN 03/07/18 [Last Taken Unknown] Multivitamins 1 tab PO DAILY 03/07/18 [Last Taken Unknown] Preservision Areds 2 Softgel PO BID 03/07/18 [Last Taken Unknown] Tylenol ES 500 mg (*) 1,000 mg PO BID 03/07/18 [Last Taken Unknown] Vitamin D3 2,000 iunits PO DAILY 03/07/18 [Last Taken Unknown] Vraylar 4.5 mg PO DAILY 03/07/18 [Last Taken Unknown] - Smoking Hx Smoking Status: Former smoker - Family Anes Hx Family Hx Anesthesia Complications: NEG ANE Labs/Vital Signs - Labs Result Diagrams: 03/10/18 10:45 - Vital Signs Blood Pressure: 158/95 Heart Rate: 72 Respiratory Rate: 18 O2 Sat (%): 94 Height: 182.88 cm Weight: 141.067 kg ANE Physical Exam - Airway Neck exam: FROM Mallampati Score: Class 3 Mouth exam: normal dental/mouth exam - Pulmonary Pulmonary: clear to auscultation - Cardiovascular Cardiovascular: regular rate and rhythym - ASA Status ASA Status: III ANE Anesthesia Plan Anesthesia Plan: GA with mask
--- NOTE | 2018-03-10 12:44 | POSTANESTH ---
Post Anesthetic Evaluation Cardiovascular Status: Normal, Stable Respiratory Status: Normal, Stable Level of Consciousness/Mental Status: Can Participate in Eval, Alert and Oriented Pain Control: Adequate, Prn Tx Ordered Nausea/Vomiting Control: Adequate, Prn Tx Ordered Complications Possibly Related to Anesthesia: None Noted
--- NOTE | 2018-03-10 12:47 | PDRADPN ---
Radiology Procedure Note Date of Procedure: 03/10/18 Radiologist: Danielito Feliciano Anesthesiologist: Dr. Minor Anesthesia: IV Sedation Pre-op Diagnosis: post 5/1 discectomy. Post-op Diagnosis: same Indication: concern for infected 5/1 disc prosthesis Procedure: ct guided diagnostic disc aspiration Finding(s): right parapedicular approach to 5/1 disc space with coaxial 18/20 chiba combination. Three 20G FNAs obtained. Inf/Abcess present in the surg proc area at time of surgery?: No EBL: Minimal Complications: none Specimen(s): Three 20G aspirates submitted in dry plastic specimen container.
[2018-03-10 14:06] VITALS: BP 155/94
== END 2018-03-10 14:15 | disposition home or self-care (01) ==
LOC: FIMAGING 10:18
PROVIDERS: ATTEND Physician Assistant Surgical
PROC: 0S9 Lower Joints, Drainage (ICD-10-PCS; principal; 2018-03-10 12:43)
DX: R93.7 Abnormal findings on diagnostic imaging of other parts of musculoskeletal system (principal); Z98.1 Arthrodesis status; Z87.891 Personal history of nicotine dependence
CPT/HCPCS: J2704

== ENCOUNTER 2018-05-02 05:18 | Inpatient (IN) | payer OTHER ==
[2018-05-02] MEDS ORDERED: morphINE PF 0.2 MG in SYRINGE INTRATHECAL 1 SYR IT ONE (06:02)
[2018-05-02] MEDS ORDERED: morphINE SR 15 MG TAB PO ONE (06:02)
[2018-05-02] MEDS ORDERED: ACETAMINOPHEN 500 MG TAB PO ONE (06:02)
[2018-05-02] MEDS ORDERED: ceFAZolin 2 GM/DEXTROSE 100 ML IV ONE (06:02)
[2018-05-02] MEDS ORDERED: GABAPENTIN 300 MG CAP PO ONE (06:02)
[2018-05-02] MEDS ORDERED: LR 1,000 ML IV ONE (06:04)
[2018-05-02] MEDS ORDERED: THROMBIN (BOVINE) 20,000 UNIT VIAL TP ONE ×2 (06:54→08:36)
[2018-05-02] MEDS ORDERED: BUPIVACAINE/EPI 0.5% 30 ML SDV ONE (06:54)
[2018-05-02] MEDS ORDERED: BUPIVACAINE 0.25% 30 ML SDV ONE ×3 (06:54→07:19)
[2018-05-02] MEDS ORDERED: BACITRACIN 50,000 UNITS/10 ML SYR IRR ONE ×2 (06:55→06:56)
--- NOTE | 2018-05-02 06:57 | PDHPUP ---
History & Physical Update H&P update statement: This history and physical update is based on an assessment of the patient which was completed after admission or registration (within 24 hours), but prior to the surgery/procedure. H&P update: H&P reviewed & patient examined, no change in patient's condition since H&P completed (All questions answered. Consent signed and site marked. )
[2018-05-02] MEDS ORDERED: EPINEPHrine 1 MG/ML INJ ONE (06:59)
--- NOTE | 2018-05-02 07:10 | PDANEPAE ---
ANE History of Present Illness 53 year old male with plans for large anterior and posterior spine surgery. ANE Past Medical History - Cardiovascular History Hx Hypertension: Yes Hx Arrhythmias: No Hx Chest Pain: No Hx Coronary Artery / Peripheral Vascular Disease: No Hx CHF / Valvular Disease: No Hx Palpitations: No - Pulmonary History Hx COPD: No Hx Asthma/Reactive Airway Disease: No Hx Recent Upper Respiratory Infection: No Hx Oxygen in Use at Home: No Hx Sleep Apnea: Yes Sleep Apnea Screening Result - Last Documented: Positive Pulmonary History Comment: Sleep apnea TOLERATES CPAP; - Neurologic History Hx Cerebrovascular Accident: No Hx Seizures: No Hx Dementia: No Neurologic History Comment: NO HX OF SEZURES - Endocrine History Hx Diabetes: Yes Hypothyroid: No Hyperthyroid: No Obesity: moderate Endocrine History Comment: DM II -DX ~2009. HGB A 1 C ~ 7.6. - Renal History Hx Renal Disorders: Yes Renal History Comment: PROBLEM EMPTYING BLADDER - Liver History Hx Hepatic Disorders: No - Neurological & Psychiatric Hx Hx Neurological and Psychiatric Disorders: Yes Neurological / Psychiatric History Comment: BACK PAIN- PAIN RADIATES DOWN BILAT LEGS;. BIPOLAR W/PSYCHOTIC TENDENCY;STABLE W/RX; - Cancer History Hx Cancer: No - Congenital Disorder History Hx Congenital Disorders: Yes Congenital History Comment: KIDNEY CONGENITAL ABNORMALITY - GI History Hx Gastrointestinal Disorders: No Gastrointestinal History Comment: Gas; - Other Health History Other Health History: 1 MISSING TOOTH-LOWER MOLAR. - Chronic Pain History Chronic Pain: Yes (BACK PAIN & SHOULDER L; b leg) - Surgical History Prior Surgeries: L5/S1 BX/NEG FOR INFECTION -;. L4/5, L5/S1 FUSION W/ INSTRUMENTATION 08/2015. ING HERNIA REPAIR L. KIDNEY SURG CHILDHOOD;. SHOULDER R REPLACEMENT. VASECTOMY. COLONOSCOPIES X2. MASSES REMOVED FROM CHEST AREA; ANE Review of Systems Review of Systems: - Exercise capacity Exercise capacity: <4 METS METS (RN): 3 METS - Systems Muscolosketal: Reports: back pain Neurological: Reports: numbness, tingling (Bilateral legs) ANE Patient History - Allergies Allergies/Adverse Reactions: carbamazepine [From Tegretol] Allergy (Verified 04/14/18 16:55) Hives ramelteon [From Rozerem] Allergy (Verified 04/14/18 16:55) Hives vortioxetine hydrobromide [From Brintellix] Allergy (Verified 04/14/18 16:55) Hives anticonvulsant Allergy (Uncoded 04/14/18 16:55) Hives - Home Medications Home medications: home medication list seen and reviewed Home Medications: RX: Ascorbic Acid [Vitamin C 500 mg (*)] 1,000 mg PO DAILY@0700 07/28/15 [Last Taken 04/18/18] RX: Benztropine Mesylate [Cogentin] 0.5 mg PO DAILY 07/28/15 [Last Taken ] RX: Gabapentin [Neurontin 300 MG (*)] 600 mg PO TID@0700,1400,2100 07/28/15 [ Last Taken 05/02/18] RX: Metoprolol Tartrate [Lopressor 100 mg (*)] 100 mg PO BID@07/28/15 [ Last Taken 05/01/18] RX: amLODIPine BESYLATE [Norvasc 10 mg (*)] 10 mg PO DAILY@07 07/28/15 [Last Taken 05/02/18] RX: clonazePAM [Klonopin (*)] 0.5 mg PO TID@0700,1400,1800 07/28/15 [Last Taken 05/02/18] RX: Allopurinol [Allopurinol 300 MG (RX)] 300 mg PO BID@12/28/16 [Last Taken 05/02/18] RX: Amantadine HCl [Symmetrel] 100 mg PO BID 12/28/16 [Last Taken 05/01/18] RX: Atorvastatin Calcium [Lipitor 20 mg (*)] 20 mg PO HS 12/28/16 [Last Taken ] RX: Colchicine [Colchicine (*)] 1.8 mg PO DAILY PRN 12/28/16 [Last Taken ] RX: Dextroamphetamine/Amphetamine [Adderall 30 mg Tablet] 30 mg PO BID@ [Last Taken 05/01/18] RX: Divalproex Sodium [Depakote] 1,000 mg PO DAILY@16 12/28/16 [Last Taken 05/01] RX: Lisinopril [Zestril 40 mg (*)] 40 mg PO DAILY 12/28/16 [Last Taken 05/01/18] RX: Melatonin 5 mg PO HS 12/28/16 [Last Taken 04/18/18] RX: Ziprasidone HCl [Geodon] 80 mg PO TID 12/28/16 [Last Taken 05/02/18] RX: metFORMIN HCL [Glucophage 1000 mg] 1,000 mg PO BIDMEAL 12/28/16 [Last Taken 04/30/18] Glucosamine-Chondroitin Tablet 1,500 mg PO BID 03/07/18 [Last Taken 04/18/18] Ipratropium 0.06% Nasal 1 spray EACHNARE TID 03/07/18 [Last Taken 05/02/18] RX: Doxazosin Mesylate [Cardura 4 MG (*)] 8 mg PO DAILY 03/07/18 [Last Taken ] Vraylar 4.5 mg PO DAILY@03/07/18 [Last Taken 05/01/18] Acetaminophen [Tylenol ES 500 mg (*)] 1,000 mg PO BID@04/14/18 [Last Taken 05/02/18] C/E/Zn/Cu/OM3/DHA/EPA/LUT/ZEAX [Preservision Areds 2 Softgel] 1 each PO BID 02/26 [Last Taken 04/18/18] Cholecalciferol Vit D3 [Vitamin D3 (*)] 2,000 units PO DAILY 04/14/18 [Last Taken 04/18/18] Divalproex [Depakote] 1,500 mg PO DAILY@08 04/14/18 [Last Taken 05/02/18] Furosemide [Lasix 40 MG (*)] 40 mg PO DAILY PRN 04/14/18 [Last Taken 04/18/18] Levothyroxine [Synthroid 50 mcg (*)] 50 mcg PO DAILY06 04/14/18 [Last Taken ] Multivitamins [Multivitamin (*)] 1 each PO DAILY 04/14/18 [Last Taken 04/18/18] [place]-3 Fatty Acids [Fish Oil 1000 mg (*)] 1,000 mg PO BID 04/14/18 [Last Taken 04/18/18] Zolpidem Tartrate [Ambien] 10 mg PO HS 04/14/18 [Last Taken 05/01/18] tiZANidine HCL [Zanaflex] 4 mg PO BID@18 [Last Taken 05/02/18] - NPO status NPO Status: no food or drink >8 hours NPO Since - Liquids (Date): 05/01/18 NPO Since - Liquids (Time): 23:00 NPO Since - Solids (Date): 05/01/18 NPO Since - Solids (Time): 23:00 - Anes Hx Anes Hx: no prior problems - Smoking Hx Smoking Status: Former smoker (Former smokeless tobacco) Marijuana use: No - Alcohol Use Alcohol Use: None - Family Anes Hx Family Anes Hx: neg - N/A Family Hx Anesthesia Complications: NEG ANE Labs/Vital Signs - Vital Signs Vital Signs: reviewed preoperatively; see RN documention for details Blood Pressure: 112/73 Heart Rate: 95 Respiratory Rate: 16 O2 Sat (%): 92 Height: 182.88 cm Weight: 140.614 kg ANE Physical Exam - Airway Neck exam: increased neck circumference, short neck Mallampati Score: Class 3 Mouth exam: normal dental/mouth exam, small mouth opening - Pulmonary Pulmonary: no respiratory distress - Cardiovascular Cardiovascular: regular rate and rhythym - ASA Status ASA Status: III ANE Anesthesia Plan Anesthesia Plan: general endotracheal anesthesia Lines/Monitors: arterial line Total IV Anesthesia: No
[2018-05-02] MEDS ORDERED: MIDAZOLAM 2 MG/2 ML VIAL IVP ONE (07:14)
[2018-05-02] MEDS ORDERED: fentaNYL 100 MCG/2 ML INJ ONE (07:26)
[2018-05-02] MEDS ORDERED: PROPOFOL/EMULSION 500 MG/50 ML BOTTLE IV ONE ×5 (07:27→13:00)
[2018-05-02] MEDS ORDERED: REMIFENTANIL HCL 1 MG VIAL ONE ×5 (07:27→12:55)
[2018-05-02] MEDS ORDERED: PROPOFOL 200 MG/20 ML VIAL ONE (07:27)
[2018-05-02] MEDS ORDERED: LIDOCAINE 2% JELLY 5 ML TUBE ONE (07:29)
[2018-05-02] MEDS ORDERED: LIDOCAINE 2% 5 ML SDV ONE (07:29)
[2018-05-02] MEDS ORDERED: ROCURONIUM 50 MG/5 ML VIAL ONE ×3 (07:29→09:55)
[2018-05-02] MEDS ORDERED: CHLORHEXIDINE GLUC HIBICLENS 118 ML BTL TP ONE (08:06)
[2018-05-02] MEDS ORDERED: ceFAZolin 1 GM VIAL ONE ×2 (08:22→12:24)
[2018-05-02] MEDS ORDERED: CITRATE DEXTROSE SOLN 500 ML BAG ONE ×2 (08:25→12:46)
[2018-05-02] MEDS ORDERED: DEXAMETHASONE 4 MG/ML VIAL ONE (08:45)
[2018-05-02] MEDS ORDERED: PHENYLEPHRINE HCL 100 MCG/ML SYR ONE (09:02)
[2018-05-02] MEDS ORDERED: diphenhydrAMINE 25 MG CAP PO PRN (10:21)
[2018-05-02] MEDS ORDERED: ONDANSETRON DISINTEGRATING 4 MG TAB PO PRN (10:21)
[2018-05-02] MEDS ORDERED: ONDANSETRON 4 MG/2 ML VIAL IVP PRN ×2 (10:21→14:02)
[2018-05-02] MEDS ORDERED: LACTULOSE 20 GM/30 ML UDCUP PO PRN (10:21)
[2018-05-02] MEDS ORDERED: MAGNESIUM HYDROXIDE 30 ML UDCUP PO PRN (10:21)
[2018-05-02] MEDS ORDERED: BISACODYL 10 MG SUPP PR PRN (10:21)
[2018-05-02] MEDS ORDERED: COLCHICINE 0.6 MG CAP/TAB PO PRN (10:25)
[2018-05-02] MEDS ORDERED: FUROSEMIDE 40 MG TAB PO PRN (10:25)
--- NOTE | 2018-05-02 10:33 | POSTOPPROG ---
Post Op Note Date of Operation: 05/02/18 Surgeon: Alka Carrasco Floriculture Teacher: BRISEIDA Carrasco PAC Anesthesia: GET(General Endotracheal) Pre-op Diagnosis: lumbar pseudoarthoresis, stenosis Post-op Diagnosis: lumbar pseudoarthoresis, stenosis Indication: lumbar pseudoarthoresis, stenosis Procedure: Stage 1 Redo L5/S1 ALIF Inf/Abcess present in the surg proc area at time of surgery?: No EBL: Greater than 1000 Drains: Karthik MON Addendum - Addendum .: S: resting comfortably O: NAD A&Ox3 MAEx4 5/5 and equal in BUE and BLE A/P 53y/o male s/p Stage I: Redo L5/S1 ALIF with partial L5 corepectomy; Stage 2 postponed due to EBL -TO ICU, likely to return to OR for Stage II this weekend -Optimize pain management -Restart patient psych meds -Diet per gen surgery -DVT prophx: TEDs, SCDs, -PT/OT -Please notify NS with any change in neuro/motor exam
[2018-05-02] MEDS ORDERED: INSULIN REGULAR HUMAN 100 UNIT in NS 100 ML IV ONE (12:00)
[2018-05-02] MEDS ORDERED: D50W 25 GM/50 ML SYR IVP PRN (12:59)
[2018-05-02 13:17] LABS: PLATELET COUNT 163 10^3/uL (150-400)
--- NOTE | 2018-05-02 13:24 | PDMN ---
Medical Necessity Medical necessity: [facility] IP only surgery; cpt 55516 [place] [id number] Removal of Instrumentation IP (Redo L5/S1 ALIF; L2/3 TLIF, L2-S2 PSF)
[2018-05-02 13:36] LABS: INR 1.08 (0.83-1.16); PROTIME(PATIENT) 14.2 SEC (12.0-15.0)
[2018-05-02] MEDS ORDERED: HYDROmorphONE/DILAUDID 2 MG/ML INJ ONE (13:47)
[2018-05-02] MEDS ORDERED: NS 500 ML IV PRN (14:02)
[2018-05-02] MEDS ORDERED: fentaNYL 100 MCG/2 ML INJ IVP PRN (14:02)
[2018-05-02] MEDS ORDERED: HYDROmorphONE/DILAUDID 1 MG/ML INJ IVP PRN (14:02)
[2018-05-02] MEDS ORDERED: ALBUTEROL 3 ML DEYVIAL IH PRN (14:02)
[2018-05-02] MEDS ORDERED: NALOXONE HCL 0.4 MG/ML INJ IVP PRN (14:02)
[2018-05-02] MEDS ORDERED: PHENYLEPHRINE HCL 100 MCG/ML SYR IVP PRN (14:02)
[2018-05-02] MEDS: METOPROLOL TARTRATE 5 MG/5 ML INJ IVP ONE ×2 (14:30→16:40)
[2018-05-02] MEDS ORDERED: DEXMEDETOMIDINE IN 0.9 % NACL 100 ML IV SCH (14:30)
[2018-05-02] MEDS ORDERED: METOPROLOL TARTRATE 5 MG/5 ML INJ ONE (14:40)
[2018-05-02] MEDS ORDERED: ACETAMINOPHEN 500 MG TAB PO SCH (15:00)
--- NOTE | 2018-05-02 15:02 | GOP ---
[f rep st] OPERATIVE REPORT DATE OF OPERATION: 05/02/2018 SURGEON: David Concepcion MD CO-SURGEON: Dr. Hussain Cline. DOCUMENT IMAGING SPECIALIST: Alka Carrasco P.A.-C. COMPLICATIONS: None. ANESTHESIA: General. PREOPERATIVE DIAGNOSIS: 1. L5-S1 pseudoarthrosis with broken hardware at bilateral S1 and loose hardware at L5 and S1. 2. History of prior spinal fusion x2 with posterior fusion and anterior lumbar fusion L5-S1. 3. Progressive low back pain. 4. Progressive lower extremity radiculopathy. 5. Treatment refractory to nonoperative intervention. POSTOPERATIVE DIAGNOSIS: 1. L5-S1 pseudoarthrosis with broken hardware at bilateral S1 and loose hardware at L5 and S1. 2. History of prior spinal fusion x2 with posterior fusion and anterior lumbar fusion L5-S1. 3. Progressive low back pain. 4. Progressive lower extremity radiculopathy. 5. Treatment refractory to nonoperative intervention. PROCEDURE PERFORMED: 1. Anterior arthrodesis with approach to L5-S1. 2. Exploration of prior L5-S1 hardware with subsequent removal of L5-S1 interbody cage. 3. Partial L5 and partial S1 corpectomies and redo-interbody fusion using a 28 x 26 x 24 mm Verte-Stack PEEK cage filled with morselized autograft and allograft. 4. Anterior lumbar fusion L5-S1 with a 45 mm Medtronic 4 hole plate. 5. Use of intraoperative fluoroscopy, less than 1 hour physician time. 6. Use or neuromonitoring. FINDINGS: per imaging SPECIMENS: The interbody cage and specimens were taken from the L5-S1 disk space and vertebral bodies for microbiology culture and for gross specimen analysis. ESTIMATED BLOOD LOSS: 2.5 L. INDICATIONS: The patient is a 53-year-old gentleman who has undergone prior multiple lumbar surgeries including L5-S1 anterior posterior revision for pseudoarthrosis by myself approximately 2 years ago. The patient presented with worsening low back pain. Had evidence of broken hardware on his imaging studies. Imaging demonstrated S1 broken screws with pseudoarthrosis at the L5- S1 level. After discussion of the risks, benefits, and treatment alternatives, we decided to proceed forth with surgery as described above. DESCRIPTION OF PROCEDURE: Patient was brought to the operating theater and underwent general endotracheal anesthesia without complication. He had Venodynes, DAMON hose and appropriate lines placed by Anesthesia. He was maintained supine on the operating table with a small bump placed on the small of his back and his arms extended to the sides. The lower abdominal abdomen was then marked, prepped and draped in the usual sterile surgical fashion. A time-out was completed per protocol and the patient received antibiotics within [address] Cline and his team will then dictate a separate operative report the anterior exposure to the L5-S1 level. This was noted to be quite tedious secondary to the fact the patient's tissues were all noted to be quite adhesed and scarred in place. Once he was able to expose the prior hardware and the L5 and S1 vertebral bodies , we then removed the anterior Pivox plate and passed it off the field. We then used a combination of the bur tip on the drill bit, curettes, Kerrison punches to complete a redo L5-S1 diskectomy. The patient had some erosion of the L5 and S1 vertebral bodies and I therefore used the curettes and bur tip on the drill bit to complete a partial L5 and a partial S1 corpectomy until we got good flat surfaces on the bone. We prepared the bone surfaces and measured the interbody space. We placed a 20 x 26 x 24 mm PEEK cage filled with morselized autograft and allograft between the L5-S1 levels. AP and lateral x-rays demonstrated good placement of the interbody hardware. The patient's left iliac vessel was noted to be non-mobile and crossing over the L5 vertebral body and across the L5-S1 disc space. I was therefore limited in the kind of anterior plate I could place across the L5-S1 space that woud also be long enough to span the defect. I ended up having to use a 45 mm 4 hole plate and because I could not place the plate over the midline, I had to place it eccentrically at an angle with 1 screw placed at L5 and 1 screw placed at S1. I could not place screws deep enough for the anti-backout device to be rotated over the L5 screw and therefore had to leave it slightly proud. I also tried to back it out to place a smaller screw but it would not move and I was worried about stripping the scrw head. AP and lateral x-rays demonstrated good placement of the hardware. At this point, Dr. Cline and his team will dictate in a separate operative report of the abdominal closure. By this point, the patient lost approximately 2.5 L of blood and given that we had to still complete stage 2 posterior revision of the patient's hardware I opted at this point, to stop and bring him back for stage 2 at a separate day once we knew that he was doing well from a neurologic and lab standpoint. Please note, that this surgery is greater than 50% more difficult than the average surgery secondary to the fact that this was a revision and we had to go through scar tissue and we had poor access secondary to the scared down nature of the left iliac vein which is in our surgical field. /[id number]/MODL MTDD
[2018-05-02] MEDS ORDERED: IPRATROPIUM 0.06% EACHNARE SCH (16:00)
[2018-05-02 16:46] LABS: PLATELET COUNT 175 10^3/uL (150-400)
[2018-05-02] MEDS: ZIPRASIDONE HCL 80 MG PO SCH ×2 (16:52→21:13)
[2018-05-02] MEDS: GABAPENTIN 300 MG CAP PO SCH ×2 (16:54→21:10)
[2018-05-02] MEDS: ACETAMINOPHEN 500 MG TAB PO SCH ×2 (16:54→21:10)
[2018-05-02] MEDS: clonazePAM 0.5 MG TAB PO SCH ×2 (16:55→18:19)
[2018-05-02] MEDS: oxyCODONE IR 5 MG TAB PO PRN ×2 (16:56→21:11)
[2018-05-02] MEDS: DIVALPROEX NA 500 MG TAB PO SCH (16:57)
[2018-05-02] MEDS: INSULIN REGULAR HUMAN 100 UNIT/ML UNIT SC SCH ×2 (16:58→21:31)
[2018-05-02] MEDS: metFORMIN HCL 500 MG TAB PO SCH (16:59)
[2018-05-02] MEDS: METOPROLOL TARTRATE 100 MG TAB PO SCH (17:05)
[2018-05-02 17:22] LABS: INR 1.04 (0.83-1.16); PROTIME(PATIENT) 13.8 SEC (12.0-15.0)
[2018-05-02] MEDS: ALLOPURINOL 300 MG TAB PO SCH (18:19)
[2018-05-02] MEDS: SENNOSIDES/DOCUSATE SODIUM TAB PO SCH (21:10)
[2018-05-02] MEDS: FAMOTIDINE 20 MG TAB PO SCH (21:11)
[2018-05-02] MEDS: ATORVASTATIN CALCIUM 20 MG TAB PO SCH (21:11)
[2018-05-02] MEDS: VRAYLAR 4.5 MG PO SCH (21:12)
[2018-05-02] MEDS: AMANTADINE HCL 100 MG CAP PO SCH (21:12)
[2018-05-02] MEDS: IPRATROPIUM 0.06% NASAL SPRAY EACHNARE SCH (21:13)
[2018-05-02] MEDS: MELATONIN 3 MG TAB PO SCH (21:31)
[2018-05-03] MEDS: LEVOTHYROXINE 50 MCG TAB PO SCH (05:43)
[2018-05-03] MEDS: ACETAMINOPHEN 500 MG TAB PO SCH ×3 (05:43→20:07)
[2018-05-03] MEDS: GABAPENTIN 300 MG CAP PO SCH ×3 (05:44→20:08)
[2018-05-03] MEDS: clonazePAM 0.5 MG TAB PO SCH ×3 (05:44→17:50)
[2018-05-03] MEDS: ALLOPURINOL 300 MG TAB PO SCH ×2 (05:44→17:50)
[2018-05-03] MEDS: METOPROLOL TARTRATE 100 MG TAB PO SCH ×2 (05:44→18:11)
[2018-05-03] MEDS: ZIPRASIDONE HCL 80 MG PO SCH ×3 (05:47→20:09)
[2018-05-03] MEDS: SENNOSIDES/DOCUSATE SODIUM TAB PO SCH ×2 (05:48→20:08)
[2018-05-03] MEDS: MULTIVITAMINS 1 EACH TAB PO SCH (05:48)
[2018-05-03] MEDS: AMANTADINE HCL 100 MG CAP PO SCH ×2 (05:50→20:08)
[2018-05-03] MEDS: metFORMIN HCL 500 MG TAB PO SCH ×2 (05:56→18:10)
[2018-05-03] MEDS: DIVALPROEX NA 500 MG TAB PO SCH ×2 (05:56→15:52)
[2018-05-03] MEDS: FAMOTIDINE 20 MG TAB PO SCH ×2 (06:02→20:08)
[2018-05-03] MEDS: BENZTROPINE MESYLATE 1 MG TAB PO SCH (06:03)
[2018-05-03] MEDS: LISINOPRIL 40 MG TAB PO SCH (06:09)
[2018-05-03] MEDS: DOXAZOSIN MESYLATE 4 MG TAB PO SCH (06:09)
[2018-05-03] MEDS: NS W/ 20 KCl/L 1,000 ML IV SCH ×2 (06:11→20:25)
[2018-05-03] MEDS: IPRATROPIUM 0.06% NASAL SPRAY EACHNARE SCH ×3 (06:14→20:09)
[2018-05-03] MEDS ORDERED: CHLORHEXIDINE GLUC HIBICLENS 118 ML BTL TP ONE (07:20)
[2018-05-03] MEDS ORDERED: THROMBIN (BOVINE) 20,000 UNIT VIAL TP ONE (07:20)
[2018-05-03] MEDS ORDERED: CITRATE DEXTROSE SOLN 500 ML BAG ONE ×3 (07:21→11:50)
[2018-05-03] MEDS ORDERED: BUPIVACAINE 0.25% 30 ML SDV ONE ×2 (07:21→12:57)
[2018-05-03] MEDS ORDERED: EPINEPHrine 1 MG/ML INJ ONE (07:21)
[2018-05-03] MEDS ORDERED: BACITRACIN 50,000 UNITS/10 ML SYR IRR ONE (07:23)
--- NOTE | 2018-05-03 07:59 | NEUSURGPN ---
Assessment/Plan: POD # 1 s/p Stage I of II L5/S1 revision ALIF 1- plan for stage II posterior hardware revision/removal, PSF L2-S2 with iliac bolts this morning - all questions answered and consents re-signed and site marked. - 2 g Ancef OCTOR Subjective: right posterior thigh pain to the level of the knee; abdominal pain; left hand numbness but no other new complaints. Objective: A & o X 3 speech fluent Full strength in B UE/LE throughout Diminished sensation to left hand Abdominal dressing C/D/I Urinary Catheter in Place: Yes Urinary Catheter Indication: Other (Use Comment) (back to OR this morning for Stage II surgery) Catheter Insertion Date: 05/02/18 - Physician Patient Seen by : Carlene Neurosurgery Physical Exam - Vitals, I&O, Labs I and O 05/02/18 05/03/18 05/04/18 05:59 05:59 05:59 Intake Total 5845 Output Total 3110 Balance 2735 Weight 140.614 kg Intake: Oral (ml) 120 IV Intake (ml) 4800 IV Infused (ml) 925 NS W/ 20 KCl/L 1,000 ml @ 925 75 mls/hr IV CONT GEOVANY Rx #:[id number] Output: Urine (ml) 1110 Catheter 1110 Estimated Blood Loss (ml) 2000 Other: Number of Stools Catheter 0 Microbiology 05/02/18 10:53 Mycobacterial Smear (JOSÉ MIGUEL) - Final Back - Other 05/02/18 10:53 Gram Stain - Final Back - Other 05/02/18 10:16 Gram Stain - Final Other - Other Vital Signs Temp Pulse Resp BP Pulse Ox 36.8 C 65 14 99/50 L 98 05/03/18 07:13 05/03/18 07:13 05/03/18 07:13 05/03/18 07:13 05/03/18 07:13 Laboratory Results 05/02/18 16:35 05/02/18 13:00 ICD10 Worksheet Patient Problems: Problems Problem Status Onset SATHISH (acute kidney injury) Acute Arthrodesis status Acute Diabetes Acute HTN (hypertension) Acute Lumbago due to displacement of intervertebral disc Acute Lumbar stenosis Acute Pain Acute
[2018-05-03] MEDS ORDERED: PROPOFOL 200 MG/20 ML VIAL ONE (08:07)
[2018-05-03] MEDS ORDERED: ceFAZolin 1 GM VIAL ONE ×3 (08:09→08:54)
[2018-05-03] MEDS ORDERED: SUCCINYLCHOLINE CHLORIDE 200 MG/10 ML SYR IVP ONE (08:09)
[2018-05-03] MEDS ORDERED: ONDANSETRON 4 MG/2 ML VIAL ONE (08:09)
[2018-05-03] MEDS ORDERED: KETAMINE 500 MG/10 ML VIAL ONE (08:12)
[2018-05-03] MEDS ORDERED: PHENYLEPHRINE HCL 100 MCG/ML SYR ONE (08:26)
[2018-05-03] MEDS ORDERED: ceFAZolin 2 GM/DEXTROSE 100 ML IV ONE (08:30)
[2018-05-03] MEDS ORDERED: ePHEDrine SULFATE 25 MG/5 ML SYR ONE (09:02)
--- NOTE | 2018-05-03 09:02 | SOAPPROG ---
SOAP Progress Note Assessment/Plan: Assessment: 53yo M s/p abd exposure for re-do and spinal fusion - overnight did well. Pain controlled - Has been NPO, will go to the OR today for posterior fusion - per RN report, abdomen is soft and dressings are clean - discussed diet after surgery with RN and Carlene. Plan: 05/03/18 09:00 Subjective: NA Objective: Vital Signs Temp Pulse Resp BP Pulse Ox 36.8 C 66 14 99/60 L 96 05/03/18 07:30 05/03/18 07:30 05/03/18 07:30 05/03/18 07:30 05/03/18 07:30 Microbiology 05/02/18 10:53 Mycobacterial Smear (JOSÉ MIGUEL) - Final Back - Other 05/02/18 10:53 Gram Stain - Final Back - Other 05/02/18 10:16 Gram Stain - Final Other - Other Laboratory Results 05/03/18 07:45 05/03/18 07:45 05/02/18 05/03/18 05/04/18 05:59 05:59 05:59 Intake Total 5845 Output Total 3110 150 Balance 2735 -150 PT 13.8 SEC (12.0-15.0) 05/02/18 16:35 INR 1.04 (0.83-1.16) 05/02/18 16:35 ICD10 Worksheet Patient Problems: Problems Problem Status Onset ASTHISH (acute kidney injury) Acute Arthrodesis status Acute Diabetes Acute HTN (hypertension) Acute Lumbago due to displacement of intervertebral disc Acute Lumbar stenosis Acute Pain Acute
[2018-05-03] MEDS ORDERED: ROCURONIUM 50 MG/5 ML VIAL ONE (09:04)
[2018-05-03] MEDS ORDERED: DOPamine/DEXTROSE 400 MG/250 ML BAG IV ONE (09:11)
--- NOTE | 2018-05-03 09:19 | PDANEPAE ---
ANE Past Medical History - Cardiovascular History Hx Hypertension: Yes Hx Arrhythmias: No Hx Chest Pain: No Hx Coronary Artery / Peripheral Vascular Disease: No Hx CHF / Valvular Disease: No Hx Palpitations: No - Pulmonary History Hx COPD: No Hx Asthma/Reactive Airway Disease: No Hx Recent Upper Respiratory Infection: No Hx Oxygen in Use at Home: No Hx Sleep Apnea: Yes Sleep Apnea Screening Result - Last Documented: Positive Pulmonary History Comment: Sleep apnea TOLERATES CPAP; - Neurologic History Hx Cerebrovascular Accident: No Hx Seizures: No Hx Dementia: No Neurologic History Comment: NO HX OF SEZURES - Endocrine History Hx Diabetes: Yes Hypothyroid: No Hyperthyroid: No Obesity: moderate Endocrine History Comment: DM II -DX ~2009. HGB A 1 C ~ 7.6. - Renal History Hx Renal Disorders: Yes Renal History Comment: PROBLEM EMPTYING BLADDER - Liver History Hx Hepatic Disorders: No - Neurological & Psychiatric Hx Hx Neurological and Psychiatric Disorders: Yes Neurological / Psychiatric History Comment: BACK PAIN- PAIN RADIATES DOWN BILAT LEGS;. BIPOLAR W/PSYCHOTIC TENDENCY;STABLE W/RX; - Cancer History Hx Cancer: No - Congenital Disorder History Hx Congenital Disorders: Yes Congenital History Comment: KIDNEY CONGENITAL ABNORMALITY - GI History Hx Gastrointestinal Disorders: No Gastrointestinal History Comment: Gas; - Other Health History Other Health History: 1 MISSING TOOTH-LOWER MOLAR. - Chronic Pain History Chronic Pain: Yes (BACK PAIN & SHOULDER L; b leg) - Surgical History Prior Surgeries: L5/S1 BX/NEG FOR INFECTION 02-26;. L4/5, L5/S1 FUSION W/ INSTRUMENTATION 08/2015. ING HERNIA REPAIR L. KIDNEY SURG CHILDHOOD;. SHOULDER R REPLACEMENT. VASECTOMY. COLONOSCOPIES X2. MASSES REMOVED FROM CHEST AREA; ANE Review of Systems Review of Systems: - Exercise capacity METS (RN): 3 METS ANE Patient History - Allergies Allergies/Adverse Reactions: carbamazepine [From Tegretol] Allergy (Verified 04/14/18 16:55) Hives ramelteon [From Rozerem] Allergy (Verified 04/14/18 16:55) Hives vortioxetine hydrobromide [From Brintellix] Allergy (Verified 04/14/18 16:55) Hives anticonvulsant Allergy (Uncoded 04/14/18 16:55) Hives - Home Medications Home Medications: Ascorbic Acid [Vitamin C 500 mg (*)] 1,000 mg PO DAILY@0700 07/28/15 [Last Taken 04/18/18] Benztropine Mesylate [Cogentin] 0.5 mg PO DAILY 07/28/15 [Last Taken 05/02/18] Gabapentin [Neurontin 300 MG (*)] 600 mg PO TID@0700,1400,2100 07/28/15 [Last Taken 05/02/18] Metoprolol Tartrate [Lopressor 100 mg (*)] 100 mg PO BID@07/28/15 [Last Taken 05/01/18] amLODIPine BESYLATE [Norvasc 10 mg (*)] 10 mg PO DAILY@07/28/15 [Last Taken 05/02/18] clonazePAM [Klonopin (*)] 0.5 mg PO TID@0700,1400,1800 07/28/15 [Last Taken ] Allopurinol [Allopurinol 300 MG (RX)] 300 mg PO BID@12/28/16 [Last Taken 05/02/18] Amantadine HCl [Symmetrel] 100 mg PO BID 12/28/16 [Last Taken 05/01/18] Atorvastatin Calcium [Lipitor 20 mg (*)] 20 mg PO HS 12/28/16 [Last Taken ] Colchicine [Colchicine (*)] 1.8 mg PO DAILY PRN 12/28/16 [Last Taken 04/02/18] Dextroamphetamine/Amphetamine [Adderall 30 mg Tablet] 30 mg PO BID@,12 [Last Taken 05/01/18] Divalproex Sodium [Depakote] 1,000 mg PO DAILY@16 12/28/16 [Last Taken 05/01/18] Lisinopril [Zestril 40 mg (*)] 40 mg PO DAILY 12/28/16 [Last Taken 05/01/18] Melatonin 5 mg PO HS 12/28/16 [Last Taken 04/18/18] Ziprasidone HCl [Geodon] 80 mg PO TID 12/28/16 [Last Taken 05/02/18] metFORMIN HCL [Glucophage 1000 mg] 1,000 mg PO BIDMEAL 12/28/16 [Last Taken ] Doxazosin Mesylate [Cardura 4 MG (*)] 8 mg PO DAILY 03/07/18 [Last Taken ] Glucosamine-Chondroitin Tablet 1,500 mg PO BID 03/07/18 [Last Taken 04/18/18] Ipratropium 0.06% Nasal 1 spray EACHNARE TID 03/07/18 [Last Taken 05/02/18] Vraylar 4.5 mg PO DAILY@03/07/18 [Last Taken 05/01/18] Acetaminophen [Tylenol ES 500 mg (*)] 1,000 mg PO BID@04/14/18 [Last Taken 05/02/18] C/E/Zn/Cu/OM3/DHA/EPA/LUT/ZEAX [Preservision Areds 2 Softgel] 1 each PO BID 02/26 [Last Taken 04/18/18] Cholecalciferol Vit D3 [Vitamin D3 (*)] 2,000 units PO DAILY 04/14/18 [Last Taken 04/18/18] Divalproex [Depakote] 1,500 mg PO DAILY@08 04/14/18 [Last Taken 05/02/18] Furosemide [Lasix 40 MG (*)] 40 mg PO DAILY PRN 04/14/18 [Last Taken 04/18/18] Levothyroxine [Synthroid 50 mcg (*)] 50 mcg PO DAILY06 04/14/18 [Last Taken ] Multivitamins [Multivitamin (*)] 1 each PO DAILY 04/14/18 [Last Taken 04/18/18] [place]-3 Fatty Acids [Fish Oil 1000 mg (*)] 1,000 mg PO BID 04/14/18 [Last Taken 04/18/18] Zolpidem Tartrate [Ambien] 10 mg PO HS 04/14/18 [Last Taken 05/01/18] tiZANidine HCL [Zanaflex] 4 mg PO BID@04/14/18 [Last Taken 05/02/18] - NPO status NPO Since - Liquids (Date): 05/03/18 NPO Since - Liquids (Time): 06:00 NPO Since - Solids (Date): 05/02/18 NPO Since - Solids (Time): 22:00 - Anes Hx Anes Hx: no prior problems - Smoking Hx Smoking Status: Former smoker - Alcohol Use Alcohol Use: None - Family Anes Hx Family Hx Anesthesia Complications: NEG ANE Labs/Vital Signs - Labs Result Diagrams: 05/03/18 07:45 05/03/18 07:45 - Vital Signs Blood Pressure: 99/60 Heart Rate: 66 Respiratory Rate: 14 O2 Sat (%): 96 Height: 182.88 cm Weight: 140.614 kg ANE Physical Exam - Airway Mallampati Score: Class 3 Mouth exam: normal dental/mouth exam - Pulmonary Pulmonary: no respiratory distress, no rales or rhonchi, clear to auscultation - Cardiovascular Cardiovascular: regular rate and rhythym, no murmur, rub, or gallop - ASA Status ASA Status: III ANE Anesthesia Plan Anesthesia Plan: general endotracheal anesthesia
[2018-05-03] MEDS ORDERED: morphINE PF 5 MG/10 ML INJ IT ONE (09:30)
[2018-05-03] MEDS ORDERED: CALCIUM CHLORIDE 1 GM/10 ML INJ ONE ×2 (09:32)
[2018-05-03] MEDS: INSULIN REGULAR HUMAN 100 UNIT/ML UNIT SC SCH ×4 (09:57→20:55)
[2018-05-03] MEDS ORDERED: ALBUMIN 5% 250 ML BOTTLE IV ONE ×2 (09:59→10:32)
[2018-05-03] MEDS ORDERED: ESMOLOL HCL 100 MG/10 ML VIAL IV ONE (11:16)
[2018-05-03] MEDS ORDERED: PHENYLEPHRINE 10 MG/ML SDV ONE ×2 (11:25)
[2018-05-03] MEDS ORDERED: fentaNYL 100 MCG/2 ML INJ IVP PRN (12:34)
[2018-05-03] MEDS ORDERED: OXYCODONE/APAP 5/325 TAB PO PRN (12:34)
[2018-05-03] MEDS ORDERED: PHENYLEPHRINE HCL 100 MCG/ML SYR IVP PRN (12:34)
[2018-05-03] MEDS ORDERED: NALOXONE HCL 0.4 MG/ML INJ IVP PRN (12:34)
[2018-05-03] MEDS ORDERED: LR 500 ML IV PRN (12:34)
[2018-05-03] MEDS ORDERED: ONDANSETRON 4 MG/2 ML VIAL IVP PRN (12:34)
[2018-05-03] MEDS ORDERED: DIAZEPAM 5 MG/ML 1 ML SYR IVP PRN (12:34)
--- NOTE | 2018-05-03 13:43 | POSTANESTH ---
Post Anesthetic Evaluation Cardiovascular Status: Normal, Stable, Similar to Pre-Op Cond Respiratory Status: Similar to Pre-op Cond., Tx Decrease in SpO2 (Significant sleep apnea, required nasal pillow CPAP in PACU following surgery on 05-02-18) Level of Consciousness/Mental Status: Can Participate in Eval, Mildly Sleepy, Arousable Pain Control: Adequate, Prn Tx Ordered Nausea/Vomiting Control: Adequate, Prn Tx Ordered Complications Possibly Related to Anesthesia: None Noted
[2018-05-03] MEDS ORDERED: DEXMEDETOMIDINE HCL 400 MCG in NS 100 ML IV SCH (14:00)
--- NOTE | 2018-05-03 14:37 | POSTOPPROG ---
Post Op Note Date of Operation: 05/03/18 Surgeon: David Concepcion Clamp Carrier Operator: Moy Mack PAC Anesthesiologist: Leonides Mcneil Anesthesia: GET(General Endotracheal) Pre-op Diagnosis: Lumbar DJD, pseudarthrosis, broken hardware, spinal stenosis Post-op Diagnosis: same Indication: Back/leg pain Procedure: L2-S2 fusion with L2/3 TLIF removal of hardware Findings: broken hardware, DJD, spinal stenosis Inf/Abcess present in the surg proc area at time of surgery?: No EBL: 500-1000 Complications: None Drains: Karthik Jensen (RENNY x 2 to bulb suction) Specimen(s): None
--- NOTE | 2018-05-03 14:51 | SOAPPROG ---
SOAP Progress Note Assessment/Plan: POST OP CHECK: Assessment: Doing well s/p L2-S2 fusion with l2/3 tlif Plan: cpm IN icu precedex drip for pain control RENNY x 2 to suction 05/03/18 14:47 05/03/18 14:51 Subjective: awake, slert comfortable speaking and cooperative, states his left hand still feels numb Objective: Vital Signs Temp Pulse Resp BP Pulse Ox 36.8 C 66 14 99/60 L 96 05/03/18 07:30 05/03/18 09:20 05/03/18 09:20 05/03/18 09:20 05/03/18 09:20 Microbiology 05/02/18 10:53 Gram Stain - Final Back - Other 05/02/18 10:16 Gram Stain - Final Other - Other 05/02/18 10:53 Mycobacterial Smear (JOSÉ MIGUEL) - Final Back - Other Laboratory Results 05/03/18 07:45 05/03/18 07:45 05/02/18 05/03/18 05/04/18 05:59 05:59 05:59 Intake Total 5845 Output Total 3110 150 Balance 2735 -150 PT 13.8 SEC (12.0-15.0) 05/02/18 16:35 INR 1.04 (0.83-1.16) 05/02/18 16:35 Neuro: Follows commands x 4 IVERSON, sens +LT, tingling in left hand Eyes open, speech clear PERRLA ICD10 Worksheet Patient Problems: Problems Problem Status Onset SATHISH (acute kidney injury) Acute Arthrodesis status Acute Diabetes Acute HTN (hypertension) Acute Lumbago due to displacement of intervertebral disc Acute Lumbar stenosis Acute Pain Acute
--- NOTE | 2018-05-03 14:56 | POSTANESTH ---
Post Anesthetic Evaluation Cardiovascular Status: Normal, Stable, Similar to Pre-Op Cond Respiratory Status: Similar to Pre-op Cond. Level of Consciousness/Mental Status: Can Participate in Eval, Moderately Sleepy Pain Control: Adequate, Prn Tx Ordered Nausea/Vomiting Control: Adequate, Prn Tx Ordered Complications Possibly Related to Anesthesia: None Noted
--- NOTE | 2018-05-03 15:34 | GOP ---
[f rep st] OPERATIVE REPORT DATE OF OPERATION: 05/03/2018 SURGEON: David Concepcion MD CONSUMER SALES REPRESENTATIVE: Moy Mack PA-C. ANESTHESIA: General. PREOPERATIVE DIAGNOSIS: 1. Pseudoarthrosis L5-S1 with history of prior fusion L3 through S1. 2. Low back pain. 3. Radiculopathy. 4. Adjacent level breakdown at L2-L3 with severe spinal stenosis. 5. Treatment refractory to nonoperative intervention. POSTOPERATIVE DIAGNOSIS: 1. Pseudoarthrosis L5-S1 with history of prior fusion L3 through S1. 2. Low back pain. 3. Radiculopathy. 4. Adjacent level breakdown at L2-L3 with severe spinal stenosis. 5. Treatment refractory to nonoperative intervention. PROCEDURE PERFORMED: This is stage 2 of a planned 2-stage surgical procedure. Stage 1 was a redo- anterior fusion completed on the April. Stage 2 was originally planned to follow stage 1 immediately, however, given the length and complicated surgical intervention required for stage 1, we decided to wait until the following day for stage 2, which is being completed today. 1. Posterior arthrodesis with approach to L2, L3, L4, L5, S1, and S2. 2. Exploration of prior lumbar hardware L3 through S1. 3. Removal of posterior hardware including bilateral S1 screws. 4. Posterolateral fusion with morselized autograft and allograft bilaterally between L2 and S2. 5. Posterolateral fusion with placement of new bilateral pedicle screws in L2, S2 and iliac bolts from the [employer] Solera 4.75 system. 6. Augmentation of left S1 screw with bone cement. 7. Decompressive laminectomy with bilateral medial facetectomies, L2-L3. 8. L2-L3 transforaminal lumbar interbody fusion with an 8 x 28 mm titanium PEEK elevate cage filled with morselized autograft and allograft. 9. Posterolateral fusion on the right between L2-L3 and bilaterally between L5 and S2. 10. Use of intraoperative 3D Stealth Navigation. 11. Use of intraoperative fluoroscopy, less than 1 hour physician time. 12. Use of neuromonitoring. 13. Use of the operating microscope. 14. Injection of preservative-free intrathecal narcotics. COMPLICATIONS: None. FINDINGS: per imaging ESTIMATED BLOOD LOSS: 900 mL of which 500 mL was given back by [employer]. INDICATIONS: The patient is a 53-year-old gentleman, who has undergone prior lumbar fusions with a known history of pseudarthrosis L5-S1 for which he underwent a prior surgery by myself for the revision of L5-S1. He presented with worsening low back pain and had evidence of broken hardware and pseudoarthrosis at L5-S1 with adjacent level breakdown at L2-L3. After discussion of the risks, benefits, and treatment alternatives, we decided to proceed forth with surgery as described above. DESCRIPTION OF PROCEDURE: Patient was brought to operating theater and underwent general endotracheal anesthesia without complications. He had Venodynes, DAMON hose, and appropriate lines placed by Anesthesia. He was then flipped prone on the Karthik table. All bony processes inspected and padded. The previous lumbar incision was identified and marked more cranially and cephalad. This area was then prepped and draped in usual sterile surgical fashion. A time-out was completed per protocol. The patient received antibiotics within 1 hour of incision. The incision was infiltrated with Marcaine with epinephrine and taken down with the scalpel blade. Using the plasma blade, we then took the incision down the midline over the L2-L3 level. A subperiosteal dissection was carried on the left side between L2 and S1. We identified the hardware bilaterally between L3 and S1. We then moved on to the right side where we again completed a subperiosteal dissection and identified the hardware at L3 through S1 on the right side. Care was taken to avoid the previous medial laminotomy site from his previous surgeries. We removed the cap screws and bilateral rods from the L3 through S1 levels and passed off the field. Upon further exploration, he had evidence of loosening of the hardware on the left at S1 and right-sided S1 both of which the screws were pulled out. The left S1 screw was removed intact and had a large hole around the screw. The right-sided S1 screw was noted to be broken mid shaft and I could not retrieve it given the depth of the location of the remainder of the screw itself. I then attached the 3D Stealth Navigation clamp to the spinous process of L4 and completed a 3D Stealth Navigation spin. Using 3D Stealth Navigation, we placed the helicopter pilot instructor holes for the bilateral iliac screws. All holes were manually palpated with no evidence of any cortical breaches. We then tapped and placed 7.5 x 80 mm screws bilaterally into the iliac wings. I then dissected down to S2 and attempted to place an S2 trans SI-alar screw, however, given the patient's anatomy, I was not able to do this and therefore I placed bilateral S2 screws in a bicortical manner. These were both 7.0 x 40 mm screws. I was not able to place the right- sided S1 screw given the constraints of the broken hardware and the previous corpectomy from the previous anterior surgery. I then placed bone cement into the left-sided S1 defect and placed a screw into the S1 defect with bone cement to augment the screw for stabilization. We then used the 3D Strava navigation system to place the bilateral L2 screws. Both holes were then filled with 6.5 x 50 mm screws bilaterally from the [employer] Solera 4.75 system. Another 3D navigation spin demonstrated good placement of the hardware. At this point, we completed a decompressive laminectomy at L2-L3, with bilateral medial facetectomies and completed an aggressive facetectomy on the left side between L2 and L3. We completed a left-sided L2 through L3 diskectomy. We prepared the construct plates and measured the interbody space. We placed an 8 x 28 mm titanium PEEK elevate cage filled with morselized autograft and allograft anteriorly and toward the midline. We packed additional morcellized autograft in the disk space for the interbody fusion. We let down distraction and decorticated bone in the right side between L2-L3, left-sided L5-S1, and right-sided L5-S1. The wound was irrigated copiously with bacitracin irrigation. We then placed 2 rods into the heads of the screws between L2 and S2 and secured them down with cap screws which was then tightened to the bench boring machine operator's setting. We placed 2 lateral connectors and attached the iliac bolts to the rods between S1-S2. We placed 2 cross links between L2-L3 and S1-S2 and also secured them down with cap screws which were tightened per the manufacture's setting. The wound was irrigated copiously with bacitracin irrigation. We injected preservative-free intrathecal narcotics. We placed morselized autograft and allograft on the right side between L2-L3, left-side L5-S2 and right side L5 to the posterolateral fusion. Two drains were left in the subfascial space and the wound then closed in multiple layers using Vicryl sutures for the deep layers and Dermabond for the skin. The patient's wounds were dressed sterilely. He was still asleep at the time of this dictation. There were no complications. No known changes under neuromonitoring throughout the procedure. Please note, that this surgery was greater than 75% more challenging than the average surgery secondary to the patient having had 3 prior multiple posterior surgeries and given the amount of scar tissue, broken hardware and difficulty with his anatomy. /[id number]/MODL MTDD
--- NOTE | 2018-05-03 16:11 | PDINTPN ---
Supervisor [employer] Progress Note Assessment/Plan: Assessment: Acute blood loss anemia: Had EBL 2.5 liters 05/02. Initial post-op Hgb normal, now this has fallen as expected. No signs of significant ongoing blood loss/ coagulopathy. SATHISH: Likely due to pre-renal/hypovolemia after lager acute blood loss 05/02. Urine output OK. JANY: On CPAP/oxygen, with good saturations. Plan: Follow H/H, Cr. IVF for SATHISH. Continue CPAP/oxygen PRN sleep. 05/03/18 16:10 Subjective: Feels OK pain controlled s/p posterior L-spine surgery. Objective: Vital Signs Temp Pulse Resp BP Pulse Ox 36.9 C 91 10 L 96/46 L 94 05/03/18 14:50 05/03/18 14:50 05/03/18 14:50 05/03/18 14:50 05/03/18 14:50 Microbiology 05/02/18 10:53 Gram Stain - Final Back - Other 05/02/18 10:16 Gram Stain - Final Other - Other 05/02/18 10:53 Mycobacterial Smear (JOSÉ MIGUEL) - Final Back - Other Laboratory Results 05/03/18 15:15 05/02/18 05/03/18 05/04/18 05:59 05:59 05:59 Intake Total 5845 Output Total 3110 295 Balance 2735 -295 PT 13.8 SEC (12.0-15.0) 05/02/18 16:35 INR 1.04 (0.83-1.16) 05/02/18 16:35 Physical Exam - Physical Exam General Appearance: alert, no apparent distress EENT: normal ENT inspection Neck: normal inspection Respiratory: lungs clear, normal breath sounds Cardiac/Chest: regular rate, rhythm, No edema Abdomen: normal bowel sounds, non-tender Skin: normal color Extremities: normal inspection Neuro/Psych: alert, No normal mood/affect (sedated but arousable), No motor weakness ICD10 Worksheet Patient Problems: Problems Problem Status Onset SATHISH (acute kidney injury) Acute Arthrodesis status Acute Diabetes Acute HTN (hypertension) Acute Lumbago due to displacement of intervertebral disc Acute Lumbar stenosis Acute Pain Acute
--- NOTE | 2018-05-03 16:44 | GCON ---
[f rep st] CONSULTATION PULMONARY/CRITICAL CARE CONSULTATION DATE OF CONSULTATION: 05/02/2018 REFERRING PHYSICIAN: David Concepcion MD REASON FOR REFERRAL: Evaluation and management of hypotension and acute blood loss. HISTORY: The patient is a 53-year-old male with a long history of back pain, status post several ciarra geries. Because of ongoing pain not responsive to nonoperative treatment, he was admitted for lumbar surgery with planned anterior and posterior approaches. During the anterior approach through the ab domen, they encountered quite a bit of scarring/adhesions, and had an estimated blood loss of 2.5 L. Because of the large amount of blood loss, the anterior approach was completed and it was decided to delay the posterior approach until at least tomorrow. The patient is returned to the intensive care unit, extubated. He is groggy but denies pain currently. PAST MEDICAL HISTORY: 1. Obstructive sleep apnea. The patient uses CPAP and oxygen with sleep, and is apparently complian t with his current therapy, which is effective per recent CPAP downloads. 2. History of bipolar disorder. 3. Type 2 diabetes. 4. Hypertension. 5. Hyperlipidemia. MEDICATIONS: At the time of admission include allopurinol, amlodipine, atorvastatin, doxazosin, macie pentin, Glucophage, ipratropium, lisinopril, metoprolol, ProAir, tizanidine, Adderall, amantadine, cl onazepam, Depakote, melatonin, ziprasidone, Vraylar, and zolpidem. ALLERGIES: Carbamazepine, Rozerem, and Tegretol. SOCIAL HISTORY: The patient does not drink. He is a former smoker. He denies illicit substance use . FAMILY HISTORY: Unremarkable. REVIEW OF SYSTEMS: Unobtainable due to the patient's sedation/postoperative state. PHYSICAL EXAMINATION: VITAL SIGNS: Blood pressure is 89/68 with heart rate of 113. His oxygen satu rations are 93% on CPAP with supplemental oxygen at 5 L/minute. He is afebrile. HEENT: Normocephal ic and atraumatic. No icterus. NECK: No JVD. Trachea is midline. CHEST: Clear to auscultation. CARDIAC: Regular rate and rhythm without murmur. ABDOMEN: Soft and nontender. He is obese. Kam l sounds are absent. EXTREMITIES: No clubbing, cyanosis, or edema. NEURO: The patient is sedated and somnolent but does arouse weakly and follows simple commands. There are no gross motor or sensor y deficits. LABORATORY: A hemoglobin is 15.5. A white blood count is 16.1, a platelet count is 175. Chemistry group shows a creatinine of 1.1. His glucose is 204. An INR is 1.1. ASSESSMENT: 1. Hypotension. The patient had a brief episode of hypotension, likely related to large volume loss as well as vasoplegia due to the patient's anesthesia. He is currently receiving IV fluids and I ex pect this will respond to fluids. 2. Acute blood loss. The patient had 2.5 L of estimated blood loss. Despite this, his hemoglobin i s normal. Likely, he still has some intravascular volume loss and will dilute with further IV fluids for volume expansion to counteract the patient's hypotension. There is no evidence of ongoing acute blood loss or coagulopathy. 3. Obstructive sleep apnea. The patient is managed as an outpatient with continuous positive-airway pressure and oxygen, and this appears to be effective and he is compliant. He is currently using co ntinuous positive-airway pressure and oxygen. His oxygen saturations are adequate. RECOMMENDATIONS: 1. Continue CPAP and oxygen. 2. IV fluid boluses. 3. Follow hemoglobin. 4. If the patient does well, he can probably proceed with surgery tomorrow. /[id number]/MODL
--- NOTE | 2018-05-03 17:52 | ASMTCMCOM ---
CM Note CM Note Notes: Pt admitted w/progressive lower back pain and LE radiculopathy. He is post-op day 1, had fusion and T-Lif w/ some hardware removal. Pt has not yet worked w/therapies, dc needs tbd. Date Signed: 05/03/2018 05:51 PM Electronically Signed By:Priscilla Donato RN
[2018-05-03] MEDS ORDERED: ENOXAPARIN 40 MG/0.4 ML SYR SC SCH (18:00)
--- NOTE | 2018-05-03 19:55 | GOP ---
[f rep st] OPERATIVE REPORT DATE OF OPERATION: 05/02/2018 SURGEON: Hussain Cline MD RAIL EQUIPMENT OPERATOR: Mustapha Kay MD. PREOPERATIVE DIAGNOSIS: Spinal instability. POSTOPERATIVE DIAGNOSIS: Spinal instability. PROCEDURE PERFORMED: Anterior spine exposure for the L5-S1 area. FINDINGS: INDICATIONS: The patient has had previous spine surgery which has failed and he is here for repeat s pine fusion at the L5-S1 level. DESCRIPTION OF PROCEDURE: The patient was taken to the operating room where he received satisfactory general endotracheal anesthesia by Dr. Marte. Placed in the supine position, prepped and draped in the usual sterile fashion. A vertical lower abdominal incision was made from the umbilicus to the p ubis. Dissection carried through the linea alba, and the abdomen was carefully opened. Adhesions we re taken down. The omentum and small bowel were freed up from the pelvis and packed away in the uppe r abdomen. The retroperitoneum was entered over the L5-S1 area in the midline. Dissection extended down to the L5-S1 plate. It was quite difficult and tedious with marked inflammatory reaction and ve ry thick fibrous tissue. The iliac vein was carefully mobilized, retracted as much as possible. Thi s did result in some bleeding from some branches and some direct bleeding from the iliac vein which h ad to be suture controlled with 5-0 Prolene interrupted sutures at times. The scar tissue was dissec cathy free of the L5 body and the S1 body, and the previously placed anterior plate was fully exposed. Exposure was maintained with the Omni retractor. At that point hemostasis was stable. The case was turned over to Dr. Concepcion for removal of the plate and anterior spinal fusion. When that was comple cathy, I returned. The retroperitoneum was closed with a running 0 Vicryl suture. The distal contents were replaced in a normal position. Hemostasis was assured. The abdomen was closed with a running #1 PDS for the linea alba and skin dhaval for the skin. The wound was infiltrated with 0.5% Marcain e. Blood loss from exposure before the procedure was approximately 400 cc. There were no complicati ons. /[id number]/MODL
[2018-05-03] MEDS: ATORVASTATIN CALCIUM 20 MG TAB PO SCH (20:08)
[2018-05-03] MEDS: MELATONIN 3 MG TAB PO SCH (20:08)
[2018-05-03] MEDS: ceFAZolin 2 GM/DEXTROSE 100 ML IV SCH (20:08)
[2018-05-03] MEDS: VRAYLAR 4.5 MG PO SCH (20:09)
[2018-05-04] MEDS: ACETAMINOPHEN 500 MG TAB PO SCH ×3 (05:02→21:38)
[2018-05-04] MEDS: LEVOTHYROXINE 50 MCG TAB PO SCH (05:02)
[2018-05-04] MEDS: ceFAZolin 2 GM/DEXTROSE 100 ML IV SCH (05:03)
[2018-05-04] MEDS: oxyCODONE IR 5 MG TAB PO PRN (05:03)
[2018-05-04] MEDS: ALLOPURINOL 300 MG TAB PO SCH ×2 (08:06→18:35)
[2018-05-04] MEDS: clonazePAM 0.5 MG TAB PO SCH ×3 (08:07→18:35)
[2018-05-04] MEDS: GABAPENTIN 300 MG CAP PO SCH ×4 (08:08→21:36)
[2018-05-04] MEDS: METOPROLOL TARTRATE 100 MG TAB PO SCH ×2 (08:08→18:35)
[2018-05-04] MEDS: INSULIN REGULAR HUMAN 100 UNIT/ML UNIT SC SCH ×4 (08:09→21:52)
[2018-05-04] MEDS: BENZTROPINE MESYLATE 1 MG TAB PO SCH (08:10)
[2018-05-04] MEDS: metFORMIN HCL 500 MG TAB PO SCH ×2 (08:10→18:35)
[2018-05-04] MEDS: AMANTADINE HCL 100 MG CAP PO SCH ×2 (08:10→21:36)
[2018-05-04] MEDS: IPRATROPIUM 0.06% NASAL SPRAY EACHNARE SCH ×3 (08:12→21:40)
[2018-05-04] MEDS: FAMOTIDINE 20 MG TAB PO SCH ×2 (08:12→21:36)
[2018-05-04] MEDS: DOXAZOSIN MESYLATE 4 MG TAB PO SCH (08:12)
[2018-05-04] MEDS: LISINOPRIL 40 MG TAB PO SCH (08:12)
[2018-05-04] MEDS: MULTIVITAMINS 1 EACH TAB PO SCH (08:13)
[2018-05-04] MEDS: ZIPRASIDONE HCL 80 MG PO SCH ×3 (08:13→21:39)
[2018-05-04] MEDS: SENNOSIDES/DOCUSATE SODIUM TAB PO SCH ×2 (08:13→21:36)
[2018-05-04] MEDS: DIVALPROEX NA 500 MG TAB PO SCH ×2 (08:17→15:52)
--- NOTE | 2018-05-04 09:04 | SOAPPROG ---
SOAP Progress Note Assessment/Plan: Assessment: 53 y/o M s/o redo anterior/posterior spinal fusion POD #2 S: Laying in bed after PT session. Per RN, his pressure dropped to 80s/50s during session. Pt denies symptoms. Tolerating clears, but not passing gas or BM yet. O: Alert Diaphoretic Temp: 100.2 Tachycardic in 120s BP 80s/50s Creatinine: up to 2.4 K: 6.2 Decreasing urine output Abdomen: soft, but distended, hypoactive bowel sounds, mild shadowing on dressing Plan: Will defer to neurosurg for current tachycardia, hypotension and decreased kidney function, as they are primary. Will change IV fluids to NS. Continue clear liquid diet. 05/04/18 08:58 Objective: Vital Signs Temp Pulse Resp BP Pulse Ox 37.1 C 69 15 122/57 H 95 05/04/18 05:00 05/04/18 08:08 05/04/18 06:00 05/04/18 08:12 05/04/18 06:00 Microbiology 05/02/18 10:53 Gram Stain - Final Back - Other 05/02/18 10:16 Gram Stain - Final Other - Other Laboratory Results 05/04/18 05:40 05/04/18 05:40 05/03/18 05/04/18 05/05/18 05:59 05:59 05:59 Intake Total 5845 3606 Output Total 3110 1330 Balance 2735 2276 PT 13.8 SEC (12.0-15.0) 05/02/18 16:35 INR 1.04 (0.83-1.16) 05/02/18 16:35 ICD10 Worksheet Patient Problems: Problems Problem Status Onset SATHISH (acute kidney injury) Acute Arthrodesis status Acute Diabetes Acute HTN (hypertension) Acute Lumbago due to displacement of intervertebral disc Acute Lumbar stenosis Acute Pain Acute
[2018-05-04] MEDS ORDERED: ALBUMIN 5% 500 ML BOTTLE IV ONE (09:47)
--- NOTE | 2018-05-04 10:24 | SOAPPROG ---
SOAP Progress Note Assessment/Plan: Assessment: 53 male POD #2 s/p Redo Anterior interbody fusion on 05/02 with Gen surg assistance and POD #1 sp L2-S2 fusion with L2/3 TLIF Hypotensive this AM responded to bolus of NS and 250ml Albumin Worked with PT/OT this AM and was standing and walking short dist. Now sleepy after he was given all of his morning meds. Plan: Follow HH, urine output and pressures, he may need more albumin/fluids since he lost nearly 1 liter yesterday. PT/OT as tolerated Continue RENNY x 2 D/W Dr. Hinkle Subjective: Lying in bed comfortable, but falls asleep quickly. Arousable to follow commands weakly. On Objective: Vital Signs Temp Pulse Resp BP Pulse Ox 37.9 C 83 18 84/50 L 96 05/04/18 08:00 05/04/18 10:00 05/04/18 10:00 05/04/18 10:00 05/04/18 10:00 Microbiology 05/02/18 10:53 Gram Stain - Final Back - Other 05/02/18 10:16 Gram Stain - Final Other - Other Laboratory Results 05/04/18 05:40 05/04/18 05:40 05/03/18 05/04/18 05/05/18 05:59 05:59 05:59 Intake Total 5845 3606 Output Total 3110 1330 Balance 2735 2276 PT 13.8 SEC (12.0-15.0) 05/02/18 16:35 INR 1.04 (0.83-1.16) 05/02/18 16:35 Neuro: Follows commands x 4, 5/5 bilat DF/PF/EHL pulls both legs up and down bed sens +LT Left dental ceramist assistant weaker than right PERRLA Dressing: CDI RENNY Left: 375 ml RENNY right:355ml ICD10 Worksheet Patient Problems: Problems Problem Status Onset SATHISH (acute kidney injury) Acute Arthrodesis status Acute Diabetes Acute HTN (hypertension) Acute Lumbago due to displacement of intervertebral disc Acute Lumbar stenosis Acute Pain Acute
[2018-05-04] MEDS ORDERED: ALBUMIN 5% 500 ML IV ONE (10:30)
[2018-05-04] MEDS ORDERED: NS BOLUS 500 ML (Wide open) IV ONE (10:30)
[2018-05-04] MEDS ORDERED: NS 1,000 ML IV ONE (11:37)
--- NOTE | 2018-05-04 12:24 | PDINTPN ---
Gas Meter Repairer Progress Note Assessment/Plan: Assessment: Acute blood loss anemia: Had EBL 2.5 liters 05/02. Initial post-op Hgb normal, now this has fallen as expected. No signs of significant ongoing blood loss/ coagulopathy. S/P L-spine surgery: Anterior approach 05/02, posterior approach delayed until . Pain control OK SATHISH: Likely due to pre-renal/hypovolemia after large acute blood loss 05/02. Urine output OK, but Cr continues to climb. Hypotension: Suspect this is due to blood loss, now with 3rd spacing. Cardiac causes, PE possible but less likely. Acidosis could contribute. Hyperkalemia: Likely due to renal insufficiency, possibly acidosis. JANY: On CPAP/oxygen, with good saturations at night. Plan: After being CTSP emergently due to hypotension and hyperkalemia, an Albumin bolus was given and I placed a RIJ TLC without difficulty. Labs revealed pH 7.17, Cr up to 2.9, Hgb 9.0, CVP 13 (on BiPAP). Another liter of IVF ordered, BP improving. Tried CPAP, but he's having hypoxemia with mouth breathing. Changed to BiPAP/AVAPS with FFM, sats improved. Will order troponins, ECHO, US legs, repeat ABG and Chem-7. Consider CTH if mental status doesn't improve with resolution of acidosis. D/W , NS 65 minutes CC time addressing hypotension, acidosis. 05/04/18 12:35 Subjective: Less responsive this morning, no complaints Objective: Vital Signs Temp Pulse Resp BP Pulse Ox 37.9 C 83 18 84/50 L 96 05/04/18 08:00 05/04/18 10:00 05/04/18 10:00 05/04/18 10:00 05/04/18 10:00 Microbiology 05/02/18 10:53 Gram Stain - Final Back - Other 05/02/18 10:16 Gram Stain - Final Other - Other Laboratory Results 05/04/18 11:51 05/04/18 05:40 05/03/18 05/04/18 05/05/18 05:59 05:59 05:59 Intake Total 5845 3606 Output Total 3110 1330 Balance 2735 2276 PT 13.8 SEC (12.0-15.0) 05/02/18 16:35 INR 1.04 (0.83-1.16) 05/02/18 16:35 CXR: RIJ in appropriate position, atelectasis, no PTX. Images reviewed by me. Physical Exam - Physical Exam General Appearance: mild distress, No alert EENT: normal ENT inspection Neck: normal inspection Respiratory: lungs clear, normal breath sounds Cardiac/Chest: regular rate, rhythm, edema (1+) Abdomen: normal bowel sounds, non-tender Skin: normal color, warm/dry Extremities: normal inspection Neuro/Psych: No alert, No oriented x 3, No motor weakness ICD10 Worksheet Patient Problems: Problems Problem Status Onset SATHISH (acute kidney injury) Acute Arthrodesis status Acute Diabetes Acute HTN (hypertension) Acute Lumbago due to displacement of intervertebral disc Acute Lumbar stenosis Acute Pain Acute
[2018-05-04] MEDS ORDERED: FUROSEMIDE 20 MG/2 ML VIAL IVP ONE (13:58)
--- NOTE | 2018-05-04 14:00 | GPN ---
[f rep st] PROCEDURE NOTE DATE OF PROCEDURE: 05/04/2018 PROCEDURE: Central line placement. REASON FOR THE PROCEDURE: Hypotension and altered mental status, poor IV access. PROCEDURE NOTE: The risks and benefits of the procedure were explained to the patient, who agreed ve rbally to proceed. Due to the emergent nature of the procedure, written consent was not obtained. A fter a time-out, the patient was prepped and draped in the usual sterile fashion after interrogating the right neck with ultrasound and identifying an appropriate location. A finder needle was advanced under ultrasound guidance into the jugular vein without difficulty on the 1st pass. This was then w ithdrawn, and a thin-walled needle was advanced over the same site, again with ultrasound guidance. The vein was entered on the 1st pass. A wire was passed through this, and a catheter was placed thro ugh the Seldinger technique without difficulty. All 3 ports withdrew dark blood and flushed easily. The catheter was sewn in place, and a sterile dressing was applied. A postprocedure chest x-ray ema wed appropriate position of the tip of the catheter with no pneumothorax. Estimated blood loss was 5 cc. /[id number]/MODL
--- NOTE | 2018-05-04 15:43 | ECHO ---
[email or web address] [address] [address] Main: [phone] Fax: Transthoracic Echocardiogram Name: DEBO FERNÁNDEZ MR#: [id number] Study Date: 05/04/2018 Study Time: 01:07 PM Date of : 1965 Age: 53 year(s) Height: 182.9 cm (72 in.) Weight: 140.62 kg (310 lb.) BSA: 2.57 m2 Gender: Male Examination: Echo Indication: HYPOTENSION Image Quality: Technically Difficult Contrast: Requested by: Arya Chavira BP: 119 mmHg/62 mmHg Heart Rate: Rhythm: Indication: HYPOTENSION Procedure Staff Viscera Washer: Kelsey Panda [facility] Reading Physician: Robby Dumont MD Requesting Provider: Conclusions: Normal size left ventricle. No LV hypertrophy. Normal global systolic LV function. EF is 62 %. The mitral valve is normal in appearance and function. Technically difficult valvular evaluation. The aortic valve is normal in appearance and function. Technically difficult valvular evaluation. Normal size aortic root measuring 2.9 cm. Echo images were poor. If clinically indicated consider TOMMY modality for further in-depth assessment. None of the valves appeared to be overtly pathologic. Measurements: Chambers Valvular Assessment AV/MV Valvular Assessment TV/PV Normal Normal Normal Name Value Range Name Value Range Name Value Range Ao Urszula (2D): 2.9 cm (1.4 cm-2.6 AV Vmax: 1.50 m/s (1 m/s-1.7 PV Vmax: 1.29 m/s (0.6 m/s-0.9 cm) m/s) m/s) IVSd (2D): 1.2 cm (0.6 cm-1.1 AV maxP mmHg ( - ) PV PGmax: 7 mmHg ( - ) cm) AV meanP mmHg ( - ) LVDd (2D): 5.0 cm (4.2 cm-5.9 MADYSON (VTI): 3.2 cm ( - ) cm) MV E Vmax: 1.09 m/s ( - ) LVDs (2D): 3.4 cm (2.1 cm-4 MV A Vmax: 0.88 m/s ( - ) cm) MV E/A: 1.24 ( - ) LVPWd (2D): 1.2 cm (0.6 cm-1 cm) MV PHT: 0.030 s ( - ) LVOTd 2.0 cm 2.0 cm mm MVA (PHT): 7.3 s ( - ) LVEF (BP): 62 % (>=55 %) RVDd(2D): 2.6 cm (1.9 cm-3.8 cmmm) Patient: DEBO FERNÁNDEZ Study Date: 05/04/2018 Page 1 of 2 01:07 PM Continued Measurements: Chambers Valvular Assessment AV/MV Valvular Assessment TV/PV Name Value Name Value Name Value LADs: 3.9 cm MV DecTime: 109 m/s CVP (est.): 5 mmHg LADs Lon.0 cm MV E' Septal: 0.10 m/s LA Area: 16.4 cm2 MV E/E' Septal: 11.40 LA Volume: 47 ml MV E/E' Lateral: 9.50 LA Volume Index: 18.3 ml/m2 Additional Vessels Name Value Ao Ascendin.7 cm Findings: Left Ventricle: Normal size left ventricle. No LV hypertrophy. Normal global systolic LV function. EF is 62 %. No regional wall motion abnormality. Normal diastolic LV function. Right Ventricle: Normal size right ventricle. Normal RV function. Left Atrium: The left atrium is normal in size. Right Atrium: The right atrium is normal in size. Mitral Valve: The mitral valve is normal in appearance and function. Technically difficult valvular evaluation. Aortic Valve: The aortic valve is normal in appearance and function. Technically difficult valvular evaluation. Tricuspid Valve: The tricuspid valve is normal in appearance and function. Technically difficult valvular evaluation. Pulmonic Valve: The pulmonic valve is normal in appearance and function. Aorta: The aorta is normal. Normal size aortic root measuring 2.9 cm. Normal size ascending aorta measuring 2.7 cm. Pericardium: No pericardial effusion. No pleural effusion. Exam Comments: Technically difficult, patient supine, obese, on vent. (No Signature Object) Patient: DEBO FERNÁNDEZ Study Date: 05/04/2018 Page 2 of 2 01:07 PM [id number]
[2018-05-04] MEDS: ENOXAPARIN 40 MG/0.4 ML SYR SC SCH (15:52)
[2018-05-04] MEDS: NS 1,000 ML IV SCH (16:15)
--- NOTE | 2018-05-04 16:28 | CPEKG ---
Heart Rate: 93 RR Interval: 645 P-R Interval: 164 QRSD Interval: 70 QT Interval: 312 QTC Interval: 388 P [place]: 27 QRS [place]: 9 T Wave [place]: -15 EKG Severity - BORDERLINE ECG - EKG Impression: SINUS RHYTHM EKG Impression: BORDERLINE T ABNORMALITIES, INFERIOR LEADS Electronically Signed By: Escobar Hay 05-May-2018 02:37:31
[2018-05-04] MEDS: MELATONIN 3 MG TAB PO SCH (21:36)
[2018-05-04] MEDS: ATORVASTATIN CALCIUM 20 MG TAB PO SCH (21:36)
[2018-05-04] MEDS: VRAYLAR 4.5 MG PO SCH (21:37)
[2018-05-05] MEDS: NS 1,000 ML IV SCH (01:50)
[2018-05-05] MEDS: METHOCARBAMOL 750 MG TAB PO PRN (02:52)
[2018-05-05] MEDS ORDERED: METOPROLOL TARTRATE 5 MG/5 ML INJ IVP ONE (04:15)
[2018-05-05] MEDS: oxyCODONE IR 5 MG TAB PO PRN (04:21)
[2018-05-05 04:43] LABS: PLATELET COUNT 99 10^3/uL (150-400)
--- NOTE | 2018-05-05 04:55 | CPEKG ---
Heart Rate: 115 RR Interval: 522 P-R Interval: 172 QRSD Interval: 70 QT Interval: 296 QTC Interval: 410 P [place]: 65 QRS [place]: 27 T Wave [place]: -20 EKG Severity - BORDERLINE ECG - EKG Impression: SINUS TACHYCARDIA EKG Impression: BORDERLINE T ABNORMALITIES, INFERIOR LEADS Electronically Signed By: Robby uDmont 07-May-2018 07:32:38
[2018-05-05] MEDS ORDERED: CALCIUM GLUCONATE 50 ML IV ONE (05:00)
[2018-05-05] MEDS: ACETAMINOPHEN 500 MG TAB PO SCH ×3 (05:51→21:21)
[2018-05-05] MEDS: LEVOTHYROXINE 50 MCG TAB PO SCH (05:51)
[2018-05-05] MEDS: METOPROLOL TARTRATE 100 MG TAB PO SCH ×2 (07:47→18:10)
[2018-05-05] MEDS: DIVALPROEX NA 500 MG TAB PO SCH ×3 (07:48→19:43)
[2018-05-05] MEDS: ALLOPURINOL 300 MG TAB PO SCH ×2 (07:48→18:10)
[2018-05-05] MEDS: clonazePAM 0.5 MG TAB PO SCH ×3 (07:48→18:10)
[2018-05-05] MEDS: GABAPENTIN 300 MG CAP PO SCH ×3 (07:48→19:43)
[2018-05-05] MEDS: DOXAZOSIN MESYLATE 4 MG TAB PO SCH (08:02)
[2018-05-05] MEDS: INSULIN REGULAR HUMAN 100 UNIT/ML UNIT SC SCH ×4 (08:02→21:21)
[2018-05-05] MEDS: BENZTROPINE MESYLATE 1 MG TAB PO SCH (08:03)
[2018-05-05] MEDS: MULTIVITAMINS 1 EACH TAB PO SCH (08:03)
[2018-05-05] MEDS: SENNOSIDES/DOCUSATE SODIUM TAB PO SCH ×2 (08:03→19:43)
[2018-05-05] MEDS: LISINOPRIL 40 MG TAB PO SCH (08:03)
[2018-05-05] MEDS: AMANTADINE HCL 100 MG CAP PO SCH ×2 (08:03→19:43)
[2018-05-05] MEDS: FAMOTIDINE 20 MG TAB PO SCH ×2 (08:03→19:43)
[2018-05-05] MEDS: IPRATROPIUM 0.06% NASAL SPRAY EACHNARE SCH ×3 (08:04→21:23)
[2018-05-05] MEDS: ZIPRASIDONE HCL 80 MG PO SCH ×3 (08:05→21:24)
[2018-05-05] MEDS: metFORMIN HCL 500 MG TAB PO SCH ×2 (08:05→17:35)
--- NOTE | 2018-05-05 08:30 | NEUSURGPN ---
Assessment/Plan: Assessment: 53 male POD #3 s/p Redo Anterior interbody fusion on 05/02 with Gen surg assistance and POD #2 sp L2-S2 fusion with L2/3 TLIF Plan: Follow HH, urine output (continue Mejia for close I&O); Will transfuse 1 unit PRBC, for tachycardiac and hemoglobin 7.8 this am Continue RENNY x 2, high output over night Diet per Gen surg DVT prophx: TEDs, SCDs, Lovenox Ppost op xrays pending LSO when OOB Optimize pain management PT/OT Seen by Dr. Concepcion and myself. Subjective: Denies any new leg pain, numbness or tingling. Not passing gas Objective: NAD A&Ox3 MAEX4 5/5 and equal in BUE and BLE. Incisions c/d/i. RENNY drain serosanguineous x2, +LT Catheter Insertion Date: 05/02/18 - Physician Patient Seen by : Carlene Neurosurgery Physical Exam - Vitals, I&O, Labs I and O 05/04/18 05/05/18 05/06/18 05:59 05:59 05:59 Intake Total 3606 5285 Output Total 1330 2955 Balance 2276 2330 Weight 140.614 kg Intake: Oral (ml) 1100 1150 IV Infused (ml) 2506 4135 Calcium Gluconate 50 ml @ 50 100 mls/hr IV ONCE ONE Rx#:[id number] NS W/ 20 KCl/L 1,000 ml @ 2506 75 mls/hr IV CONT GEOVANY Rx #:[id number] Ns 1,000 ml @ 125 mls/hr 4030 IV CONT GEOVANY Rx#: [id number] ceFAZolin 1 GM/DEXTROSE 55 50 ml @ 200 mls/hr IV Q8HRS GEOVANY Rx#:[id number] Output: Urine (ml) 600 2410 Catheter 600 2410 RENNY Drain Output (ml) 730 545 Left Posterior Back 375 340 Karthik Jensen Right Posterior Back 355 205 Karthik Jensen Other: Number of Stools Catheter 0 Microbiology 05/02/18 10:53 Gram Stain - Final Back - Other 05/02/18 10:16 Gram Stain - Final Other - Other Vital Signs Temp Pulse Resp BP Pulse Ox 37.5 C 110 H 15 140/73 H 98 05/05/18 08:10 05/05/18 08:10 05/05/18 08:10 05/05/18 08:10 05/05/18 08:10 Laboratory Results 05/05/18 04:30 05/05/18 04:30 ICD10 Worksheet Patient Problems: Problems Problem Status Onset SATHISH (acute kidney injury) Acute Arthrodesis status Acute Diabetes Acute HTN (hypertension) Acute Lumbago due to displacement of intervertebral disc Acute Lumbar stenosis Acute Pain Acute
--- NOTE | 2018-05-05 08:57 | SOAPPROG ---
SOAP Progress Note Assessment/Plan: Assessment: 53 y/o M s/o redo anterior/posterior spinal fusion POD #2 S: Laying in bed, no complaints. Reports passing minimal gas, but no BM. Denies abdominal pain. O: Sleepy Kidney function improving, Cr down to 1.4, K improved as well HR in 80s during visit BP improved Urine output improved Abdomen: soft, but distended, hypoactive bowel sounds, mild shadowing on dressing Plan: Continue clear liquid diet. 1u prbc per neurosurg. 05/05/18 08:54 Objective: Vital Signs Temp Pulse Resp BP Pulse Ox 37.5 C 110 H 15 140/73 H 98 05/05/18 08:10 05/05/18 08:10 05/05/18 08:10 05/05/18 08:10 05/05/18 08:10 Microbiology 05/02/18 10:53 Gram Stain - Final Back - Other 05/02/18 10:16 Gram Stain - Final Other - Other Laboratory Results 05/05/18 04:30 05/05/18 04:30 05/04/18 05/05/18 05/06/18 05:59 05:59 05:59 Intake Total 3606 5285 Output Total 1330 2955 Balance 2276 2330 PT 13.8 SEC (12.0-15.0) 05/02/18 16:35 INR 1.04 (0.83-1.16) 05/02/18 16:35 ICD10 Worksheet Patient Problems: Problems Problem Status Onset SATHISH (acute kidney injury) Acute Arthrodesis status Acute Diabetes Acute HTN (hypertension) Acute Lumbago due to displacement of intervertebral disc Acute Lumbar stenosis Acute Pain Acute
[2018-05-05] MEDS ORDERED: ALBUMIN 5% 500 ML BOTTLE IV ONE (08:58)
[2018-05-05] MEDS ORDERED: ALBUMIN 5% 500 ML IV ONE (09:30)
[2018-05-05] MEDS: ENOXAPARIN 40 MG/0.4 ML SYR SC SCH (15:22)
--- NOTE | 2018-05-05 16:00 | PDINTPN ---
Admissions Coordinator Progress Note Assessment/Plan: Assessment: S/P L-spine surgery: Anterior approach 05/02, posterior approach delayed until . Pain control OK Acute blood loss anemia: Had EBL 2.5 liters 05/02. Initial post-op Hgb normal, now below 8. For 1 unit of packed cells today. No signs of significant ongoing blood loss/coagulopathy. SATHISH: Likely due to pre-renal/hypovolemia after large acute blood loss 05/02. Urine output OK. Cr 1.4, improved. Will hold lisinopril Hypotension: Resolved for the most part. Blood pressure dips with antihypertensive medications. Hyperkalemia: Likely due to renal insufficiency, possibly acidosis. Improved, potassium 4.9 today. Diabetes: On sliding scale insulin and metformin. Glucoses below 200. Volume overload: Edematous secondary to fluid resuscitation. On Lasix. JANY: On CPAP/oxygen, with good saturations at night. Prophylaxis: On famotidine and Lovenox. Plan: Continue care in the intensive care unit. Hold lisinopril. Continue other antihypertensives. Lasix POA and IV p.r.n. 1 unit packed red blood cells today. Follow laboratory. Increase mobilization as tolerated. 30 min of critical care time spent directly with the patient. Discussed with nursing and ICU multi disciplinary team. Subjective: Somnolent, arouses, up in chair. Brace in place. Objective: Vital Signs Temp Pulse Resp BP Pulse Ox 37.5 C 87 18 110/57 L 98 05/05/18 08:10 05/05/18 14:00 05/05/18 14:00 05/05/18 14:00 05/05/18 14:00 Microbiology 05/02/18 10:53 Gram Stain - Final Back - Other 05/02/18 10:16 Gram Stain - Final Other - Other Laboratory Results 05/05/18 04:30 05/05/18 04:30 05/04/18 05/05/18 05/06/18 05:59 05:59 05:59 Intake Total 3606 5285 875 Output Total 1330 2955 Balance 2276 2330 875 PT 13.8 SEC (12.0-15.0) 05/02/18 16:35 INR 1.04 (0.83-1.16) 05/02/18 16:35 ICD10 Worksheet Patient Problems: Problems Problem Status Onset SATHISH (acute kidney injury) Acute Arthrodesis status Acute Diabetes Acute HTN (hypertension) Acute Lumbago due to displacement of intervertebral disc Acute Lumbar stenosis Acute Pain Acute
[2018-05-05] MEDS ORDERED: FUROSEMIDE 40 MG/4 ML VIAL IVP ONE (16:07)
[2018-05-05] MEDS: ATORVASTATIN CALCIUM 20 MG TAB PO SCH (19:43)
[2018-05-05] MEDS: MELATONIN 3 MG TAB PO SCH (21:21)
[2018-05-05] MEDS: VRAYLAR 4.5 MG PO SCH (21:23)
[2018-05-06] MEDS: METHOCARBAMOL 750 MG TAB PO PRN (02:59)
[2018-05-06] MEDS: oxyCODONE IR 5 MG TAB PO PRN ×3 (02:59→20:56)
[2018-05-06] MEDS: ACETAMINOPHEN 500 MG TAB PO SCH ×3 (06:22→20:56)
[2018-05-06] MEDS: LEVOTHYROXINE 50 MCG TAB PO SCH (06:22)
[2018-05-06] MEDS: ALLOPURINOL 300 MG TAB PO SCH ×2 (07:23→18:15)
[2018-05-06] MEDS: clonazePAM 0.5 MG TAB PO SCH ×3 (07:23→18:15)
[2018-05-06] MEDS: METOPROLOL TARTRATE 100 MG TAB PO SCH ×2 (07:24→20:48)
--- NOTE | 2018-05-06 07:42 | SOAPPROG ---
SOAP Progress Note Assessment/Plan: Assessment: 53 male POD #24 s/p Redo Anterior interbody fusion on 05/02 with Gen surg assistance and POD #3 sp L2-S2 fusion with L2/3 TLIF Doing well today. Oriented, pain controlled. Plan: Advance activity as tolerated with PT/OT Left RENNY removed today , continue Right RENNY Change dressing Medicine/crit continue to follow D/W Dr. Concepcion 05/06/18 07:42 Subjective: lying in bed, comfortable, pain is controlled well currently No new issues. Objective: Vital Signs Temp Pulse Resp BP Pulse Ox 37.7 C 126 H 24 H 163/63 H 95 05/06/18 06:15 05/06/18 07:24 05/06/18 06:15 05/06/18 07:24 05/06/18 06:15 Microbiology 05/02/18 10:53 Gram Stain - Final Back - Other 05/02/18 10:16 Gram Stain - Final Other - Other Laboratory Results 05/06/18 06:45 05/06/18 06:45 05/05/18 05/06/18 05/07/18 05:59 05:59 05:59 Intake Total 5285 3595 Output Total 2955 4785 Balance 2330 -1190 PT 13.8 SEC (12.0-15.0) 05/02/18 16:35 INR 1.04 (0.83-1.16) 05/02/18 16:35 Incision: CDI Right RENNY 35 left RENNY 20ml - removed today Neuro: A+Ox4 follows commands sens +Lt 5/5 bilateral DF/PF/EHL flexex and extends quads iliopsoas stands and pivots to bedside commode with PT ICD10 Worksheet Patient Problems: Problems Problem Status Onset SATHISH (acute kidney injury) Acute Arthrodesis status Acute Diabetes Acute HTN (hypertension) Acute Lumbago due to displacement of intervertebral disc Acute Lumbar stenosis Acute Pain Acute
[2018-05-06] MEDS: metFORMIN HCL 500 MG TAB PO SCH ×2 (08:26→18:08)
[2018-05-06] MEDS: GABAPENTIN 300 MG CAP PO SCH ×3 (09:10→20:57)
[2018-05-06] MEDS: FAMOTIDINE 20 MG TAB PO SCH ×2 (09:10→20:57)
[2018-05-06] MEDS: MULTIVITAMINS 1 EACH TAB PO SCH (09:10)
[2018-05-06] MEDS: SENNOSIDES/DOCUSATE SODIUM TAB PO SCH ×2 (09:10→20:55)
[2018-05-06] MEDS: BENZTROPINE MESYLATE 1 MG TAB PO SCH (09:11)
[2018-05-06] MEDS: DOXAZOSIN MESYLATE 4 MG TAB PO SCH (09:11)
[2018-05-06] MEDS: AMANTADINE HCL 100 MG CAP PO SCH ×2 (09:11→20:56)
[2018-05-06] MEDS: IPRATROPIUM 0.06% NASAL SPRAY EACHNARE SCH ×3 (09:11→20:58)
[2018-05-06] MEDS: INSULIN REGULAR HUMAN 100 UNIT/ML UNIT SC SCH ×4 (09:12→21:33)
[2018-05-06] MEDS: ZIPRASIDONE HCL 80 MG PO SCH ×3 (09:48→20:59)
--- NOTE | 2018-05-06 11:47 | PDINTPN ---
Deaf Interpreter Progress Note Assessment/Plan: Assessment: S/P L-spine surgery: Anterior approach 05/02, posterior approach delayed until . Pain control OK Acute blood loss anemia: Had EBL 2.5 liters 05/02. Initial post-op Hgb normal, then fell to 7.8. Status post 1 L of pack cells 05/05: Hb 8.3 today No signs of significant ongoing blood loss/coagulopathy. SATHISH: Likely due to pre-renal/hypovolemia after large acute blood loss 05/02. Urine output OK. Cr 1.4 yesterday, improved. Basic metabolic panel pending from today. Lisinopril on hold. Hypotension: Resolved for the most part. Blood pressure dips with antihypertensive medications. Hyperkalemia: Likely due to renal insufficiency, possibly acidosis. Improved, potassium 4.9 today. Diabetes: On sliding scale insulin and metformin. Glucoses below 200. Volume overload: Edematous secondary to fluid resuscitation. On Lasix p.r.n., generally daily. Good urine output last 24 hr. JANY: On CPAP/oxygen, with good saturations at night. Prophylaxis: On famotidine and Lovenox. Plan: Continue care in the intensive care unit. Hold lisinopril. Continue other antihypertensives. Lasix IV p.r.n: Daily if tolerated. Follow input and output Follow CBC. Follow laboratory. Increase mobilization. 25 min of critical care time spent directly with the patient. Discussed with patient, nursing and ICU multi disciplinary team. Subjective: Sleeping, arouses easily, responsive. Back pain under good control. No other complaints. Objective: Vital Signs Temp Pulse Resp BP Pulse Ox 36.7 C 76 17 107/64 97 05/06/18 07:44 05/06/18 10:00 05/06/18 10:00 05/06/18 10:00 05/06/18 10:00 Microbiology 05/02/18 10:53 Gram Stain - Final Back - Other 05/02/18 10:16 Gram Stain - Final Other - Other Laboratory Results 05/06/18 06:45 05/06/18 06:45 05/05/18 05/06/18 05/07/18 05:59 05:59 05:59 Intake Total 5288 359 Output Total 5865 3447 Balance 2330 -1190 PT 13.8 SEC (12.0-15.0) 05/02/18 16:35 INR 1.04 (0.83-1.16) 05/02/18 16:35 Physical Exam - Physical Exam General Appearance: alert, no apparent distress EENT: PERRL/EOMI, other (Nasal cannula at 3 L) Neck: normal inspection (Large neck) Respiratory: lungs clear (Anteriorly), decreased breath sounds (At bases), No rhonchi, No wheezing Cardiac/Chest: regular rate, rhythm (After metoprolol. Blood pressure lower with this. Heart rate and blood pressure goes up in between.) Abdomen: non-tender, soft (Obese), No normal bowel sounds (Decreased, bowel sounds present) Male Genitalia: other (Mejia catheter in place, good urine output) Skin: warm/dry, pallor Extremities: pedal edema Neuro/Psych: no motor/sensory deficits, No cognition abnormalities ICD10 Worksheet Patient Problems: Problems Problem Status Onset Lumbar stenosis Acute Diabetes Acute Pain Acute Lumbago due to displacement of intervertebral disc Acute Arthrodesis status Acute HTN (hypertension) Acute SATHISH (acute kidney injury) Acute
[2018-05-06] MEDS ORDERED: FUROSEMIDE 40 MG/4 ML VIAL IVP ONE (13:00)
[2018-05-06] MEDS: ENOXAPARIN 40 MG/0.4 ML SYR SC SCH (13:58)
[2018-05-06] MEDS: POLYETHYLENE GLYCOL 3350 17 GM PKT PO PRN (16:00)
[2018-05-06] MEDS: DIVALPROEX NA 500 MG TAB PO SCH ×2 (16:03→20:55)
--- NOTE | 2018-05-06 16:21 | ASMTCMCOM ---
CM Note CM Note Notes: Therapies recommending SNF Rehab. Spoke to patient and mother. He has been at [facility] in the past and would like to return there for rehab. Referral sent. [facility] contacted. Date Signed: 05/06/2018 04:20 PM Electronically Signed By:Philomena Lopez LCSW
--- NOTE | 2018-05-06 16:44 | SOAPPROG ---
SOAP Progress Note Assessment/Plan: Assessment/Plan: 53 y/o M s/o redo anterior/posterior spinal fusion with abdominal exposure Patient seen and examined by Dr. Cline. Melva Benton scribing for Dr. Cline: Patient awake, alert. Passing gas. Tolerating clear liquids. AFVSS. Wounds intact/ok. 05/06/18 16:43 Objective: Vital Signs Temp Pulse Resp BP Pulse Ox 37.2 C 104 H 22 H 100/48 L 91 L 05/06/18 16:00 05/06/18 16:00 05/06/18 16:00 05/06/18 16:00 05/06/18 16:00 Microbiology 05/02/18 10:53 Gram Stain - Final Back - Other 05/02/18 10:16 Gram Stain - Final Other - Other 05/02/18 10:53 Mycobacterial Smear (JOSÉ MIGUEL) - Final Back - Other Laboratory Results 05/06/18 06:45 05/06/18 14:50 05/05/18 05/06/18 05/07/18 05:59 05:59 05:59 Intake Total 5285 3595 Output Total 2955 4785 275 Balance 2330 -1190 -275 PT 13.8 SEC (12.0-15.0) 05/02/18 16:35 INR 1.04 (0.83-1.16) 05/02/18 16:35 ICD10 Worksheet Patient Problems: Problems Problem Status Onset SATHISH (acute kidney injury) Acute Arthrodesis status Acute Diabetes Acute HTN (hypertension) Acute Lumbago due to displacement of intervertebral disc Acute Lumbar stenosis Acute Pain Acute
[2018-05-06] MEDS: ATORVASTATIN CALCIUM 20 MG TAB PO SCH (20:56)
[2018-05-06] MEDS: MELATONIN 3 MG TAB PO SCH (20:56)
[2018-05-06] MEDS: VRAYLAR 4.5 MG PO SCH (20:59)
[2018-05-07] MEDS: METOPROLOL TARTRATE 100 MG TAB PO SCH ×2 (07:00→17:20)
[2018-05-07] MEDS: ACETAMINOPHEN 500 MG TAB PO SCH ×3 (07:03→21:15)
[2018-05-07] MEDS: LEVOTHYROXINE 50 MCG TAB PO SCH (07:06)
--- NOTE | 2018-05-07 07:45 | SOAPPROG ---
SOAP Progress Note Assessment/Plan: Assessment: 53 male POD #5s/p Redo Anterior interbody fusion on 05/02 with Gen surg assistance and POD #4 sp L2-S2 fusion with L2/3 TLIF Doing well today. Ambulating hallway easily with walker. Plan: Advance activity as tolerated with PT/OT OK for floor - transfer order placed Diet per Gen surg. Will pull remaining RENNY today per Dr. Concepcion D/W Dr. Concepcion 05/07/18 07:44 05/07/18 08:03 Subjective: walking hallway with walker, doing well, no complaints. He is hungry, still on CLD, passing gas. Objective: Vital Signs Temp Pulse Resp BP Pulse Ox 36.8 C 113 H 18 158/85 H 95 05/07/18 04:00 05/07/18 07:00 05/07/18 04:00 05/07/18 07:00 05/07/18 04:00 Microbiology 05/02/18 10:53 Gram Stain - Final Back - Other 05/02/18 10:16 Gram Stain - Final Other - Other 05/02/18 10:53 Mycobacterial Smear (JOSÉ MIGUEL) - Final Back - Other Laboratory Results 05/06/18 06:45 05/06/18 14:50 05/06/18 05/07/18 05/08/18 05:59 05:59 05:59 Intake Total 3595 2100 Output Total 4785 840 Balance -1190 1260 PT 13.8 SEC (12.0-15.0) 05/02/18 16:35 INR 1.04 (0.83-1.16) 05/02/18 16:35 right RENNY: 40 ml Neuro: Ambulating hallway easily with walker 5/5 bilat LE, sens +Lt Incision: CDI Xrays from [facility]06 [facility]: images degraded by motion artifact, but show well positioned hardware L2-S2. ICD10 Worksheet Patient Problems: Problems Problem Status Onset SATHISH (acute kidney injury) Acute Arthrodesis status Acute Diabetes Acute HTN (hypertension) Acute Lumbago due to displacement of intervertebral disc Acute Lumbar stenosis Acute Pain Acute
--- NOTE | 2018-05-07 08:40 | SOAPPROG ---
SOAP Progress Note Assessment/Plan: Assessment: 53 y/o M s/o redo anterior/posterior spinal fusion POD #2 S: Laying in bed, no complaints. Reports passing minimal gas, but no BM. Denies abdominal pain. O: Sleepy Kidney function improving, Cr down to 1.4, K improved as well HR in 80s during visit BP improved Urine output improved Abdomen: soft, but distended, hypoactive bowel sounds, mild shadowing on dressing Plan: Continue clear liquid diet. 1u prbc per neurosurg. 05/05/18 08:54 05/07/18 08:40 Tolerating clears. Passing gas. Abdominal dressing changed today. Incision is cdi. Advance to light diet. Objective: Vital Signs Temp Pulse Resp BP Pulse Ox 37.2 C 89 17 118/72 93 05/07/18 08:00 05/07/18 08:00 05/07/18 08:00 05/07/18 08:00 05/07/18 08:00 Microbiology 05/02/18 10:53 Gram Stain - Final Back - Other 05/02/18 10:16 Gram Stain - Final Other - Other 05/02/18 10:53 Mycobacterial Smear (JOSÉ MIGUEL) - Final Back - Other Laboratory Results 05/07/18 07:40 05/07/18 07:40 05/06/18 05/07/18 05/08/18 05:59 05:59 05:59 Intake Total 3595 2100 Output Total 4785 840 Balance -1190 1260 PT 13.8 SEC (12.0-15.0) 05/02/18 16:35 INR 1.04 (0.83-1.16) 05/02/18 16:35 ICD10 Worksheet Patient Problems: Problems Problem Status Onset SATHISH (acute kidney injury) Acute Arthrodesis status Acute Diabetes Acute HTN (hypertension) Acute Lumbago due to displacement of intervertebral disc Acute Lumbar stenosis Acute Pain Acute
[2018-05-07] MEDS: FAMOTIDINE 20 MG TAB PO SCH ×2 (08:52→21:14)
[2018-05-07] MEDS: GABAPENTIN 300 MG CAP PO SCH ×3 (08:52→21:14)
[2018-05-07] MEDS: MULTIVITAMINS 1 EACH TAB PO SCH (08:52)
[2018-05-07] MEDS: BENZTROPINE MESYLATE 1 MG TAB PO SCH (08:53)
[2018-05-07] MEDS: INSULIN REGULAR HUMAN 100 UNIT/ML UNIT SC SCH ×4 (08:53→21:29)
[2018-05-07] MEDS: metFORMIN HCL 500 MG TAB PO SCH ×2 (08:53→17:20)
[2018-05-07] MEDS: DOXAZOSIN MESYLATE 4 MG TAB PO SCH (08:53)
[2018-05-07] MEDS: clonazePAM 0.5 MG TAB PO SCH ×3 (08:53→17:20)
[2018-05-07] MEDS: AMANTADINE HCL 100 MG CAP PO SCH ×2 (08:53→22:10)
[2018-05-07] MEDS: SENNOSIDES/DOCUSATE SODIUM TAB PO SCH ×2 (08:53→21:15)
[2018-05-07] MEDS: ALLOPURINOL 300 MG TAB PO SCH ×2 (08:53→17:20)
[2018-05-07] MEDS: ZIPRASIDONE HCL 80 MG PO SCH ×3 (08:58→21:15)
[2018-05-07] MEDS: IPRATROPIUM 0.06% NASAL SPRAY EACHNARE SCH ×3 (09:27→21:16)
[2018-05-07] MEDS: oxyCODONE IR 5 MG TAB PO PRN ×2 (09:28→17:35)
[2018-05-07] MEDS: ENOXAPARIN 40 MG/0.4 ML SYR SC SCH (14:47)
[2018-05-07] MEDS: METHOCARBAMOL 750 MG TAB PO PRN (17:35)
[2018-05-07] MEDS: DIVALPROEX NA 500 MG TAB PO SCH ×2 (17:52→20:03)
[2018-05-07] MEDS: MELATONIN 3 MG TAB PO SCH (21:14)
[2018-05-07] MEDS: ATORVASTATIN CALCIUM 20 MG TAB PO SCH (21:14)
[2018-05-07] MEDS: VRAYLAR 4.5 MG PO SCH (21:16)
[2018-05-08] MEDS: oxyCODONE IR 5 MG TAB PO PRN ×2 (01:39→23:44)
[2018-05-08] MEDS: LEVOTHYROXINE 50 MCG TAB PO SCH (05:07)
[2018-05-08] MEDS: ACETAMINOPHEN 500 MG TAB PO SCH ×3 (05:07→23:44)
--- NOTE | 2018-05-08 06:10 | NEUSURGPN ---
Assessment/Plan: Assessment: 53 male s/p Redo Anterior interbody fusion on 05/02 with Gen surg assistance and sp L2-S2 fusion with L2/3 TLIF on 05/03 Plan: Diet per Gen surg DVT prophx: TEDs, SCDs, Lovenox LSO when OOB Optimize pain management PT/OT Please notify NS with any change in neuro/motor exam Subjective: Denies any new leg pain, numbness or tingling. Objective: NAD A&Ox3 MAEX4 5/5 and equal in BUE and BLE. Incisions c/d/i., +LT Catheter Insertion Date: 05/02/18 Neurosurgery Physical Exam - Vitals, I&O, Labs I and O 05/07/18 05/08/18 05/09/18 05:59 05:59 05:59 Intake Total 2100 2450 Output Total 840 Balance 1260 2450 Intake: Oral (ml) 2100 2450 Output: Urine (ml) 800 Catheter 800 RENNY Drain Output (ml) 40 Right Posterior Back 40 Karthik Jensen Other: Number of Voids Toilet 4 1 Microbiology 05/02/18 10:53 Gram Stain - Final Back - Other 05/02/18 10:16 Gram Stain - Final Other - Other Vital Signs Temp Pulse Resp BP Pulse Ox 36.6 C 89 17 128/63 H 94 05/07/18 23:45 05/07/18 23:45 05/07/18 23:45 05/07/18 23:45 05/07/18 23:45 Laboratory Results 05/07/18 07:40 05/07/18 07:40 ICD10 Worksheet Patient Problems: Problems Problem Status Onset SATHISH (acute kidney injury) Acute Arthrodesis status Acute Diabetes Acute HTN (hypertension) Acute Lumbago due to displacement of intervertebral disc Acute Lumbar stenosis Acute Pain Acute
[2018-05-08] MEDS: clonazePAM 0.5 MG TAB PO SCH ×3 (06:27→17:35)
[2018-05-08] MEDS: ALLOPURINOL 300 MG TAB PO SCH ×2 (06:28→17:35)
[2018-05-08] MEDS: METOPROLOL TARTRATE 100 MG TAB PO SCH ×2 (06:28→17:35)
[2018-05-08] MEDS: GABAPENTIN 300 MG CAP PO SCH ×3 (06:28→21:00)
[2018-05-08] MEDS: MULTIVITAMINS 1 EACH TAB PO SCH (08:25)
[2018-05-08] MEDS: metFORMIN HCL 500 MG TAB PO SCH ×2 (08:25→17:35)
[2018-05-08] MEDS: BENZTROPINE MESYLATE 1 MG TAB PO SCH (08:25)
[2018-05-08] MEDS: FAMOTIDINE 20 MG TAB PO SCH ×2 (08:26→21:00)
[2018-05-08] MEDS: POLYETHYLENE GLYCOL 3350 17 GM PKT PO PRN (08:26)
[2018-05-08] MEDS: LISINOPRIL 40 MG TAB PO SCH (08:26)
[2018-05-08] MEDS: SENNOSIDES/DOCUSATE SODIUM TAB PO SCH ×2 (08:26→23:35)
[2018-05-08] MEDS: INSULIN REGULAR HUMAN 100 UNIT/ML UNIT SC SCH ×4 (08:27→23:02)
[2018-05-08] MEDS: AMANTADINE HCL 100 MG CAP PO SCH ×2 (08:33→20:59)
[2018-05-08] MEDS: METHOCARBAMOL 750 MG TAB PO PRN ×2 (08:33→21:01)
[2018-05-08] MEDS: IPRATROPIUM 0.06% NASAL SPRAY EACHNARE SCH ×3 (08:34→23:46)
[2018-05-08] MEDS: ZIPRASIDONE HCL 80 MG PO SCH ×3 (08:35→23:47)
[2018-05-08] MEDS: DOXAZOSIN MESYLATE 4 MG TAB PO SCH (12:36)
[2018-05-08] MEDS: ENOXAPARIN 40 MG/0.4 ML SYR SC SCH (14:09)
[2018-05-08] MEDS: DIVALPROEX NA 500 MG TAB PO SCH ×2 (15:55→20:57)
--- NOTE | 2018-05-08 16:39 | SOAPPROG ---
SOAP Progress Note Assessment/Plan: Assessment: 53 y/o M s/o redo anterior/posterior spinal fusion POD #2 S: Laying in bed, no complaints. Reports passing minimal gas, but no BM. Denies abdominal pain. O: Sleepy Kidney function improving, Cr down to 1.4, K improved as well HR in 80s during visit BP improved Urine output improved Abdomen: soft, but distended, hypoactive bowel sounds, mild shadowing on dressing Plan: Continue clear liquid diet. 1u prbc per neurosurg. 05/05/18 08:54 05/07/18 08:40 Tolerating clears. Passing gas. Abdominal dressing changed today. Incision is cdi. Advance to light diet. 05/08/18 16:37 Tolerating light diet. Passing gas, but denies passing BM yet. Abdomen remains soft, nontender. Normoactive BS. Will add daily miralax for constipation. Advance to regular diet. Objective: Vital Signs Temp Pulse Resp BP Pulse Ox 36.8 C 98 16 150/70 H 95 05/08/18 14:43 05/08/18 14:43 05/08/18 14:43 05/08/18 14:43 05/08/18 14:43 Microbiology 05/02/18 10:53 Gram Stain - Final Back - Other 05/02/18 10:16 Gram Stain - Final Other - Other Laboratory Results 05/07/18 07:40 05/07/18 07:40 05/07/18 05/08/18 05/09/18 05:59 05:59 05:59 Intake Total 2100 2450 450 Output Total 840 Balance 1260 2450 450 PT 13.8 SEC (12.0-15.0) 05/02/18 16:35 INR 1.04 (0.83-1.16) 05/02/18 16:35 ICD10 Worksheet Patient Problems: Problems Problem Status Onset SATHISH (acute kidney injury) Acute Arthrodesis status Acute Diabetes Acute HTN (hypertension) Acute Lumbago due to displacement of intervertebral disc Acute Lumbar stenosis Acute Pain Acute
[2018-05-08] MEDS: POLYETHYLENE GLYCOL 3350 17 GM PKT PO SCH (17:34)
[2018-05-08] MEDS: ATORVASTATIN CALCIUM 20 MG TAB PO SCH (21:00)
[2018-05-08] MEDS: MELATONIN 3 MG TAB PO SCH (21:00)
[2018-05-08] MEDS: VRAYLAR 4.5 MG PO SCH (21:02)
[2018-05-09] MEDS: oxyCODONE IR 5 MG TAB PO PRN (04:16)
[2018-05-09] MEDS: ACETAMINOPHEN 500 MG TAB PO SCH ×2 (06:27→14:39)
[2018-05-09] MEDS: ALLOPURINOL 300 MG TAB PO SCH (06:28)
[2018-05-09] MEDS: LEVOTHYROXINE 50 MCG TAB PO SCH (06:28)
[2018-05-09] MEDS: clonazePAM 0.5 MG TAB PO SCH ×2 (06:33→14:39)
[2018-05-09] MEDS: GABAPENTIN 300 MG CAP PO SCH ×2 (06:34→14:39)
[2018-05-09] MEDS: METOPROLOL TARTRATE 100 MG TAB PO SCH (06:35)
[2018-05-09] MEDS: BENZTROPINE MESYLATE 1 MG TAB PO SCH (08:08)
[2018-05-09] MEDS: DOXAZOSIN MESYLATE 4 MG TAB PO SCH (08:09)
[2018-05-09] MEDS: AMANTADINE HCL 100 MG CAP PO SCH (08:09)
[2018-05-09] MEDS: MULTIVITAMINS 1 EACH TAB PO SCH (08:09)
[2018-05-09] MEDS: SENNOSIDES/DOCUSATE SODIUM TAB PO SCH (08:09)
[2018-05-09] MEDS: FAMOTIDINE 20 MG TAB PO SCH (08:10)
[2018-05-09] MEDS: metFORMIN HCL 500 MG TAB PO SCH (08:10)
[2018-05-09] MEDS: POLYETHYLENE GLYCOL 3350 17 GM PKT PO SCH (08:10)
[2018-05-09] MEDS: LISINOPRIL 40 MG TAB PO SCH (08:10)
[2018-05-09 08:11] VITALS: BP 126/74
[2018-05-09] MEDS: ZIPRASIDONE HCL 80 MG PO SCH (08:12)
[2018-05-09] MEDS: IPRATROPIUM 0.06% NASAL SPRAY EACHNARE SCH (08:12)
--- NOTE | 2018-05-09 09:32 | NEUSURGPN ---
Date of Surgery: 05/03/18 Post Op Day: 6 Assessment/Plan: Assessment: 53 male s/p Redo Anterior interbody fusion on 05/02 with Gen surg assistance and sp L2-S2 fusion with L2/3 TLIF on05/03 Plan: RUE swelling/weeping from probably IV site dorsal right hand. No redness. Will get RUE US to eval for DVT If US negative, ok to discharge to rehab today Diet per Gen surg DVT prophx: TEDs, SCDs, Lovenox LSO when OOB PT/OT Patient discussed with Dr Concepcion Please notify NS with any questions/concerns Subjective: Doing well, having BM, pain controlled Objective: AxO x3 PERRLA BLE 5/5 Sensation intact to light touch BLE Incision CDI with dermabond Neuro Check Frequency: per routine Urinary Catheter in Place: No Catheter Insertion Date: 05/02/18 - Physician Discussed Patient with : Carlene Neurosurgery Physical Exam - Vitals, I&O, Labs I and O 05/08/18 05/09/18 05/10/18 05:59 05:59 05:59 Intake Total 2450 1100 Balance 2450 1100 Intake: Oral (ml) 2450 1100 Other: Number of Voids Toilet 1 2 Number of Stools Toilet 3 Microbiology 05/02/18 10:53 Gram Stain - Final Back - Other 05/02/18 10:16 Gram Stain - Final Other - Other Vital Signs Temp Pulse Resp BP Pulse Ox 36.4 C 80 16 126/74 H 92 05/09/18 07:16 05/09/18 07:16 05/09/18 07:16 05/09/18 08:10 05/09/18 07:16 Laboratory Results 05/07/18 07:40 05/07/18 07:40 ICD10 Worksheet Patient Problems: Problems Problem Status Onset SATHISH (acute kidney injury) Acute Arthrodesis status Acute Diabetes Acute HTN (hypertension) Acute Lumbago due to displacement of intervertebral disc Acute Lumbar stenosis Acute Pain Acute
--- NOTE | 2018-05-09 09:41 | PDIAF ---
- Diagnosis Code Status: Full Code - Medication Management Discharge Medications: Medications to Continue on Transfer Ascorbic Acid [Vitamin C 500 mg (*)] 1,000 mg PO DAILY@0700 07/28/15 [Last Taken 04/18/18] Benztropine Mesylate [Cogentin] 0.5 mg PO DAILY 07/28/15 [Last Taken 05/02/18] Metoprolol Tartrate [Lopressor 100 mg (*)] 100 mg PO BID@18 07/28/15 [Last Taken 05/01/18] amLODIPine BESYLATE [Norvasc 10 mg (*)] 10 mg PO DAILY@07/28/15 [Last Taken 05/02/18] clonazePAM [Klonopin (*)] 0.5 mg PO TID@0700,1400,1800 07/28/15 [Last Taken ] Amantadine HCl [Symmetrel] 100 mg PO BID 12/28/16 [Last Taken 05/01/18] Atorvastatin Calcium [Lipitor 20 mg (*)] 20 mg PO HS 12/28/16 [Last Taken ] Dextroamphetamine/Amphetamine [Adderall 30 mg Tablet] 30 mg PO BID@,12 [Last Taken 05/01/18] Divalproex Sodium [Depakote] 1,000 mg PO DAILY@16 12/28/16 [Last Taken 05/01/18] Lisinopril [Zestril 40 mg (*)] 40 mg PO DAILY 12/28/16 [Last Taken 05/01/18] Melatonin 5 mg PO HS 12/28/16 [Last Taken 04/18/18] Ziprasidone HCl [Geodon] 80 mg PO TID 12/28/16 [Last Taken 05/02/18] metFORMIN HCL [Glucophage 1000 mg] 1,000 mg PO BIDMEAL 12/28/16 [Last Taken ] Doxazosin Mesylate [Cardura 4 MG (*)] 8 mg PO DAILY 03/07/18 [Last Taken ] Ipratropium 0.06% Nasal 1 spray EACHNARE TID 03/07/18 [Last Taken 05/02/18] Vraylar 4.5 mg PO DAILY@03/07/18 [Last Taken 05/01/18] Acetaminophen [Tylenol ES 500 mg (*)] 1,000 mg PO BID@,15 04/14/18 [Last Taken 05/02/18] C/E/Zn/Cu/OM3/DHA/EPA/LUT/ZEAX [Preservision Areds 2 Softgel] 1 each PO BID 02/26 [Last Taken 04/18/18] Cholecalciferol Vit D3 [Vitamin D3 (*)] 2,000 units PO DAILY 04/14/18 [Last Taken 04/18/18] Divalproex [Depakote] 1,500 mg PO DAILY@08 04/14/18 [Last Taken 05/02/18] Furosemide [Lasix 40 MG (*)] 40 mg PO DAILY PRN 04/14/18 [Last Taken 04/18/18] Levothyroxine [Synthroid 50 mcg (*)] 50 mcg PO DAILY06 04/14/18 [Last Taken ] Multivitamins [Multivitamin (*)] 1 each PO DAILY 04/14/18 [Last Taken 04/18/18] [place]-3 Fatty Acids [Fish Oil 1000 mg (*)] 1,000 mg PO BID 04/14/18 [Last Taken 04/18/18] Zolpidem Tartrate [Ambien] 10 mg PO HS 04/14/18 [Last Taken 05/01/18] tiZANidine HCL [Zanaflex] 4 mg PO BID@07,15 04/14/18 [Last Taken 05/02/18] Gabapentin [Neurontin 300 MG (*)] 600 mg PO TID@0700,1400,2100 #90 cap 05/09/18 [Last Taken Unknown] Methocarbamol [Robaxin 750 mg (*)] 750 mg PO QID PRN #60 tab 05/09/18 [Last Taken Unknown] Sennosides/Docusate Sodium [Senokot-S] 1 - 2 tab PO BID tab 05/09/18 [Last Taken Unknown] oxyCODONE IR [Oxycodone Ir (*)] 5 - 10 mg PO Q4HRS PRN #90 tab 05/09/18 [Last Taken Unknown] Discharge Medications: Refer to the Discharge Home Medication list for PRN reason. PICC Care - Routine: N/A - Orders Services needed: Registered Nurse, Physical Therapy, Occupational Therapy Isolation Type: None Diet Recommendation: no restrictions on diet Diet Texture: Regular Texture Diet Wound Care Instructions: No dressing needed on posterior incision Sutures/Teri Site: Will remove in approx 14 days post op Activity/Weight Bearing Restrictions: No bendig or twisting. Do not lift greater than 10 pounds. Wear brace when out of bed Equipment: Brace on when out of bed, not needed for shower Additional Instructions: No bending or twisting Do not lift greater than 10 pounds Wear brace when out of bed Ok to shower - Follow Up Care Current Providers and Referrals: Tony Krishna MD [Primary Care Provider] - David Concepcion MD [Medical Doctor] - follow up in 2 weeks Hussain Cline MD [Medical Doctor] - follow up in 2 weeks
[2018-05-09] MEDS: INSULIN REGULAR HUMAN 100 UNIT/ML UNIT SC SCH (10:52)
--- NOTE | 2018-05-09 13:15 | PDGENHP ---
History and Physical History and Physical: CC: I am asked by Dr. Concepcion of Neurosurgery to assess and assist in the care of this patient who is diagnosed with DVT postoperatively HISTORY: This patient was admitted electively on May 02 for spine surgery. This is a redo surgery and he underwent on May 02 and anterior interbody fusion and on May 03 a posterior approaches the with further effusions stabilization of lumbar spine. The surgery went well and overall other than some bleeding and requiring transfusion the patient has had a fairly uncomplicated course. He is felt stable for discharge to the from the hospital today with transfer to a shelter facility as his ability for ambulation is still limited due to pain. I am asked to see the patient today because of a diagnosis of DVT in the right upper extremity. The patient tells me he has had swelling in the right forearm and hand for few days without any significant pain there. He is not having any trouble using his hand. He also does note some pain focally in the right shoulder with certain activities with that shoulder. Notably he does have a history of prior prosthesis placement at the shoulder about a year ago. He is not recall any particular injury at this time but tells me he avulsed his biceps on that side not long after the surgery a year ago. An ultrasound of the right upper extremity was done today showing thrombus in the basilic vein with no abnormalities in the other veins of the arm. Notably the patient has been receiving Lovenox subcutaneously daily for DVT prophylaxis here. He did not have a PICC line or other central line or procedures on the right arm. Also notable the patient does not have any chest discomfort shortness of breath or hypoxemia or tachycardia. ROS: A comprehensive 10 system review revealed no other significant findings PAST MEDICAL HISTORY: Lumbar spine disease with prior surgery Sleep apnea using CPAP Diabetes mellitus Obesity Bipolar disorder on medications Hypertension Hyperlipidemia Anxiety disorder Congenital kidney disease FAMILY MEDICAL HISTORY: SOCIAL HISTORY: No tobacco or street drugs or alcohol PHYSICAL EXAMINATION: Vital Signs: At this time all stable without fever Examination: General: alert, oriented, good mentation, relaxed Skin: warm, dry, good color, no rash HEENT: normal Neck: no mass or jvd Resps: relaxed Lungs: clear breath sounds Heart: regular, no murmur Abdomen: soft, nondistended, nontender, +BS, no mass Upper Extremities: The right arm is remarkable for significant edema from just above the elbow down to the fingertips without change in skin temperature or color overall. There is 1 area just distal to the antecubital fossa whether a few small abrasions from medical tape - these are all at this time closed with a dried here it serous appearing material, but there is a slight cellulitic appearance to the area of skin between these lesions. None of them have any fluctuance or evidence of necrosis. His right shoulder has good range of motion in flexion abduction abduction however there is pain with abduction and flexion verses resistance with no visible or palpable abnormalities at joint otherwise. 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, no focal weakness IV site: looks normal LABORATORY DATA: He has had a stable anemia in the last few days with hemoglobin of 8 otherwise unremarkable CBC His fingersticks have shown sugars between 130 and 178 over the last 3 days RADIOLOGY STUDIES: Doppler ultrasound is done today showing thrombus in the basilic vein; I have reviewed the images and do agree that the findings are consistent with venous thrombosis I reviewed chest x-ray from a couple days ago which does show his right shoulder prosthesis with good positioning of the prosthesis and glenohumeral fossa and no evidence of loosening of the component in the proximal humerus or other skeletal abnormalities there ASSESSMENT: * upper extremity DVT the right arm in the postoperative setting after spine surgery despite use of daily Lovenox; no evidence of PE * probable right shoulder subacromial bursitis verses rotator cuff injury during hospitalization, reasonably good mobility of shoulder at this time but will warrant physical therapy * small area of very mild superficial cellulitis and the proximal right forearm just distal to the antecubital fossa associated with some skin lesions caused by medical tape * diabetes mellitus type 2 with good control sugars at this time * mental health disorders or currently well controlled his current medications * status post anterior-posterior approach with redo lumbar spine fusion and stabilization, otherwise doing well after surgery complicated only by some postoperative anemia aside from the above Notably at this time he does not show any signs of bleeding and I do not feel he has significant bleeding risk with full-dose anticoagulation PLANS: -I agree that he can go to rehab today as previously planned -I will start him on some Eliquis at 10 mg twice daily for 1 week followed by 5 mg twice daily; this treatments gone for 3 months -he will need physical therapy for his shoulder and ice it 3 times a day -I recommended applying heat to his right forearm on the flexor aspect as well as some antibiotic ointment and recommend this be watch carefully by the nurses
--- NOTE | 2018-05-09 13:24 | PDIAF ---
- Diagnosis Code Status: Full Code - Medication Management Discharge Medications: Medications to Continue on Transfer Ascorbic Acid [Vitamin C 500 mg (*)] 1,000 mg PO DAILY@0700 07/28/15 [Last Taken 04/18/18] Benztropine Mesylate [Cogentin] 0.5 mg PO DAILY 07/28/15 [Last Taken 05/02/18] Metoprolol Tartrate [Lopressor 100 mg (*)] 100 mg PO BID@18 07/28/15 [Last Taken 05/01/18] amLODIPine BESYLATE [Norvasc 10 mg (*)] 10 mg PO DAILY@07/28/15 [Last Taken 05/02/18] clonazePAM [Klonopin (*)] 0.5 mg PO TID@0700,1400,1800 07/28/15 [Last Taken ] Amantadine HCl [Symmetrel] 100 mg PO BID 12/28/16 [Last Taken 05/01/18] Atorvastatin Calcium [Lipitor 20 mg (*)] 20 mg PO HS 12/28/16 [Last Taken ] Dextroamphetamine/Amphetamine [Adderall 30 mg Tablet] 30 mg PO BID@,12 [Last Taken 05/01/18] Divalproex Sodium [Depakote] 1,000 mg PO DAILY@16 12/28/16 [Last Taken 05/01/18] Lisinopril [Zestril 40 mg (*)] 40 mg PO DAILY 12/28/16 [Last Taken 05/01/18] Melatonin 5 mg PO HS 12/28/16 [Last Taken 04/18/18] Ziprasidone HCl [Geodon] 80 mg PO TID 12/28/16 [Last Taken 05/02/18] metFORMIN HCL [Glucophage 1000 mg] 1,000 mg PO BIDMEAL 12/28/16 [Last Taken ] Doxazosin Mesylate [Cardura 4 MG (*)] 8 mg PO DAILY 03/07/18 [Last Taken ] Ipratropium 0.06% Nasal 1 spray EACHNARE TID 03/07/18 [Last Taken 05/02/18] Vraylar 4.5 mg PO DAILY@03/07/18 [Last Taken 05/01/18] Acetaminophen [Tylenol ES 500 mg (*)] 1,000 mg PO BID@,15 04/14/18 [Last Taken 05/02/18] C/E/Zn/Cu/OM3/DHA/EPA/LUT/ZEAX [Preservision Areds 2 Softgel] 1 each PO BID 02/26 [Last Taken 04/18/18] Cholecalciferol Vit D3 [Vitamin D3 (*)] 2,000 units PO DAILY 04/14/18 [Last Taken 04/18/18] Divalproex [Depakote] 1,500 mg PO DAILY@08 04/14/18 [Last Taken 05/02/18] Furosemide [Lasix 40 MG (*)] 40 mg PO DAILY PRN 04/14/18 [Last Taken 04/18/18] Levothyroxine [Synthroid 50 mcg (*)] 50 mcg PO DAILY06 04/14/18 [Last Taken ] Multivitamins [Multivitamin (*)] 1 each PO DAILY 04/14/18 [Last Taken 04/18/18] [place]-3 Fatty Acids [Fish Oil 1000 mg (*)] 1,000 mg PO BID 04/14/18 [Last Taken 04/18/18] Zolpidem Tartrate [Ambien] 10 mg PO HS 04/14/18 [Last Taken 05/01/18] tiZANidine HCL [Zanaflex] 4 mg PO BID@07,15 04/14/18 [Last Taken 05/02/18] Gabapentin [Neurontin 300 MG (*)] 600 mg PO TID@0700,1400,2100 #90 cap 05/09/18 [Last Taken Unknown] Methocarbamol [Robaxin 750 mg (*)] 750 mg PO QID PRN #60 tab 05/09/18 [Last Taken Unknown] Sennosides/Docusate Sodium [Senokot-S] 1 - 2 tab PO BID tab 05/09/18 [Last Taken Unknown] oxyCODONE IR [Oxycodone Ir (*)] 5 - 10 mg PO Q4HRS PRN #90 tab 05/09/18 [Last Taken Unknown] Discharge Medications: Refer to the Discharge Home Medication list for PRN reason. PICC Care - Routine: N/A - Orders Services needed: Registered Nurse, Physical Therapy, Occupational Therapy Isolation Type: None Diet Recommendation: no restrictions on diet Diet Texture: Regular Texture Diet Wound Care Instructions: No dressing needed on posterior incision. Apply heat with K-pad or other heating pad to his right forearm 4 times daily including the area of abrasions distal to the antecubital. Apply antibacterial ointment to this area of abrasions until redness this resolved around them Sutures/Teri Site: Will remove in approx 14 days post op Activity/Weight Bearing Restrictions: No bendig or twisting. Do not lift greater than 10 pounds. Wear brace when out of bed. pt has a rotator cuff injury R shoulder needs icing and physical therapy management for this Equipment: Brace on when out of bed, not needed for shower Additional Instructions: No bending or twisting Do not lift greater than 10 pounds Wear brace when out of bed Ok to shower NOTE REGARDING HIS ELIQUIS FOR ANTICOAGULATION This is to treat DVT in the right upper extremity diagnosed on May 09. He is starting 10 mg of Eliquis twice daily May 09 but should change to 5 mg twice daily on May 16 and the duration of treatment should be 3 months unless change in his condition dictates otherwise - Follow Up Care Current Providers and Referrals: Tony Krishna MD [Primary Care Provider] - Hussain Cline MD [Medical Doctor] - follow up in 2 weeks David Concepcion MD [Medical Doctor] - follow up in 2 weeks
[2018-05-09] MEDS ORDERED: BACITRACIN OINTMENT 1 PACKET TP SCH (13:30)
--- NOTE | 2018-05-09 15:08 | ASMTLACE ---
[facility] Length of stay for Answers: 7-13 days current admission Acuity / Level of Answers: Yes Care: Did the patient have an inpatient admission? Comorbidities - select Answers: Other Notes: spinal surgery all that apply # of Emergency department Answers: 0 visits in the last 6 months Score: 9 Date Signed: 05/09/2018 03:07 PM Electronically Signed By:MICHELE Chavez
--- NOTE | 2018-05-09 15:13 | ASMTCMCOM ---
CM Note CM Note Notes: Pt medically stable for d/c to [facility]. Orders sent in Allscripts. RADHA Brumfield called report. Melody scheduled van pickup for 1500. Updated d/c meds and Hospitalist transfer of care sent in Allscripts. Date Signed: 05/09/2018 03:12 PM Electronically Signed By:MICHELE Chavez
--- NOTE | 2018-05-09 16:53 | ASDISCHSUM ---
Discharge Information Plan Status:SNF Medically Cleared to Leave: Discharge Date:05/09/2018 03:07 PM D/C Disposition:Care Home Facility ADT D/C Disposition:Other Rehab, Not [facility] Projected Discharge Date:05/09/2018 11:00 AM Transportation at D/C:Wheelchair Van Discharge Delay Reason: Follow-Up Date:05/09/2018 11:00 AM Discharge Slot: Final Diagnosis:Lumbar redo Placement Information Referral Type:*Senior Care/SNF Referral ID:[id number] Provider Name:[facility] Address 1:[address] Address 2: City:[place] Selection Factors: State:[place] Patient Contact Information Contact Name:JEN Relationship:Daughter Address: Work Phone: City: [facility] Phone: State/Zip Code: Email: Financial Information Financial Class:Medicare Primary Plan Desc:MEDICARE INPATIENT Primary Plan Number:[id number] [facility] Secondary Plan Number:[id number] Assessment Information LACE LACE Length of stay for Answers: 7-13 days current admission Acuity / Level of Answers: Yes Care: Did the patient have an inpatient admission? Comorbidities - select Answers: Other Notes: spinal surgery all that apply # of Emergency department Answers: 0 visits in the last 6 months Score: 9 Date Signed: 05/09/2018 03:07 PM Electronically Signed By:MICHELE Chavez VENTURA CM Progress Note CM Note CM Note Notes: Pt admitted w/progressive lower back pain and LE radiculopathy. He is post-op day 1, had fusion and T-Lif w/ some hardware removal. Pt has not yet worked w/therapies, dc needs tbd. Date Signed: 05/03/2018 05:51 PM Electronically Signed By:Priscilla Donato RN [facility] CM Progress Note CM Note CM Note Notes: Therapies recommending SNF Rehab. Spoke to patient and mother. He has been at [facility] in the past and would like to return there for rehab. Referral sent. [facility] contacted. Date Signed: 05/06/2018 04:20 PM Electronically Signed By:Philomena Lopez LCSW [facility] CM Progress Note CM Note CM Note Notes: Pt medically stable for d/c to [facility]. Orders sent in Allscripts. RADHA Brumfield called report. Melody scheduled van pickup for 1500. Updated d/c meds and Hospitalist transfer of care sent in Allscripts. Date Signed: 05/09/2018 03:12 PM Electronically Signed By:MICHELE Chavez Intervention Information Intervention Type:*IM-Signed Date of Service:05/09/2018 10:19 AM Patient Type:Inpatient Staff Member:Whitley García Hours: Discipline: Severity: Comment:
[2018-05-09] MEDS ORDERED: APIXABAN 5 MG TAB PO SCH (21:00)
[2018-05-16] MEDS ORDERED: APIXABAN 5 MG TAB PO SCH (08:00)
--- NOTE | 2018-06-10 16:48 | GDS ---
[f rep st] DISCHARGE SUMMARY ADMISSION DIAGNOSES: L5-S1 pseudoarthrosis with broken hardware, bilateral S1 and loose hardware at L5, history of prior spinal fusion x2 with posterior anterior lumbar fusion at L5-S1, progressive low back pain, progressive lower extremity radiculopathy, and treatment refractory to nonoperative inter vention. PROCEDURES: Stage I on 05/02/2018, anterior arthrodesis with approach to L5-S1 with exploration of p rior L5-S1 hardware and subsequent removal of L5-S1 interbody cage with a partial L5 and partial S1 c orpectomy and redo interbody fusion. On 05/03/2018, stage II posterior arthrodesis with approach to L2, L3, L4, L5, S1, S2 with exploratio n of prior lumbar fusion from L3-S1 with a posterior lateral fusion from L2-S2, augmentation of the l eft S1 screw with bone cement, a decompressive laminectomy and bilateral medial facetectomy at L2-3 w ith an L2-3 transforaminal lumbar interbody fusion. HOSPITAL COURSE/HISTORY/MAJOR MEDICAL FINDINGS: The patient is a 53-year-old gentleman who had prese nted to Dr. Concepcion's outpatient clinic with low back pain. He has a history of prior CORRECTION and lumbar revision surgery and pseudoarthrosis done by Dr. Concepcion; however, with his worsening back pain, he fu rther underwent imaging, which demonstrated broken hardware and pseudoarthrosis at L5-S1 with adjacen t level breakdown at L2-3. The risks, benefits and alternatives to proceeding with the above-named p rocedures were thoroughly discussed with the patient. He was taken to the operating room on 05/02/2018, for a stage I procedure; however, given the length and complexity of the anterior procedure that was required for stage I, the surgery was stopped after completion of that stage and stage II with postponed to the following day to allow the patient to re cover. Once the second-stage was completed, the patient was extubated in the operating room and jha sferred to the PACU. Once awake and alert in PACU, he was transferred over to the ICU just for close monitoring and postoperative pain management. His diet was advanced, and he was followed by General Surgery during this time. His pain management was optimized. He was seen by PT, OT, and his postop erative drains were removed without complication. He was deemed fit for discharge to home with home health care. He was diagnosed with a DVT in his right upper extremity while in-house and was started on Eliquis while in-house. HOME MEDICATIONS: Include vitamin C, , metoprolol, amlodipine, clonazepam, amantadine, Lip itor, Adderall, Depakote, Zestril, melatonin, Geodon, Glucophage, Cardura, Tylenol, multivitamin, Dep akote, Lasix, Synthroid, omega-3 fatty acids, Neurontin, Robaxin, oxycodone 5-10 mg q.4 hours, [place] t, as well as Eliquis. DISCHARGE INSTRUCTIONS: 1. The patient is to wear his lumbar corset whenever he is up and out of bed. 2. He is to avoid all bending, twisting, lifting anything greater than 5 pounds. 3. He is not to drive while taking narcotic pain medications. 4. The patient will follow up with primary care doctor regarding the DVT and maintaining on the Eliq uis. 5. If the patient develops any redness, fever, discharge, pain that is not relieved by our pain medi cations, he is encouraged to give the [facility] office a call. 6. If the patient develops any life-threatening emergent conditions, such as chest pain, signs or sy mptoms of stroke, or gross motor loss in bilateral extremities, he is encouraged to go to his local e mergency room. FOLLOWUP CARE: Patient is to follow up with Dr. Concepcion or one of his PAs in approximately 2-3 weeks. If he has any questions or concerns prior to that time, he is encouraged to give our office a call. /[id number]/MODL
== END 2018-05-09 15:07 | DRG 454 ==
LOC: F3N 05:18 → F2N 12:39 → F3N 05-07 15:50
PROVIDERS: ADMIT Neurological Surgery; ATTEND Neurological Surgery
DX: M96.0 Pseudarthrosis after fusion or arthrodesis (principal); T84.216A Breakdown (mechanical) of internal fixation device of vertebrae, initial encounter; T84.296A Other mechanical complication of internal fixation device of vertebrae, initial encounter; M47.26 Other spondylosis with radiculopathy, lumbar region; M47.27 Other spondylosis with radiculopathy, lumbosacral region; I82.611 Acute embolism and thrombosis of superficial veins of right upper extremity; D62 Acute posthemorrhagic anemia; N17.9 Acute kidney failure, unspecified; E87.5 Hyperkalemia; I95.9 Hypotension, unspecified; E66.01 Morbid (severe) obesity due to excess calories; Z68.41 Body mass index [BMI] 40.0-44.9, adult; F31.9 Bipolar disorder, unspecified; E78.5 Hyperlipidemia, unspecified; Z87.891 Personal history of nicotine dependence; Z98.1 Arthrodesis status
CPT/HCPCS: 82435-PO; 82565-PO; 82947-PO; 84132-PO; 84295-PO; 84520-PO; 85014-PO; 97110-GP; 97116-GP; 97162-GP; 97166-GO; 97530-GO; 97530-GP; 97535-GO; C1713; C1763; G8978-GP-CL; G8979-GP-CJ; G8987-GO-CK; G8988-GO-CI; G8989-GO-CI; J0171; J0330; J0610; J0690; J1100; J1170; J1265; J1650; J1815; J1940; J2250; J2270; J2274; J2370; J2405; J2704; J3010; J7060; P9016; P9021; P9041

== ENCOUNTER 2018-08-01 19:52 | Emergency (ER) | payer OTHER ==
[2018-08-01] MEDS ORDERED: fentaNYL 100 MCG/2 ML INJ IVP ONE (20:27)
[2018-08-01 20:36] LABS: PLATELET COUNT 207 10^3/uL (150-400)
[2018-08-01] MEDS ORDERED: NS 1,000 ML IV ONE (20:37)
--- NOTE | 2018-08-01 21:52 | EDPHY ---
H & P Time Seen by Provider: 08/01/18 20:00 HPI/ROS: CHIEF COMPLAINT: Flank pain HISTORY OF PRESENT ILLNESS: 53-year-old male with a history of kidney stones and chronic back pain here with left-sided flank pain starting yesterday evening. Denies any fever chills or vomiting or diarrhea. He does state that he feels constipated and has not had a bowel movement approximately 3 days. He is passing gas today. No history of bowel obstruction. He takes 5 mg of oxycodone every 4 hr as needed for chronic low back pain. He did have lumbar spinal fusion and April of this year. Denies any fever chills, incontinence, saddle paresthesias, radiation of his pain to his legs. REVIEW OF SYSTEMS: Constitutional: No fever, no chills. Eyes: No discharge. ENT: No sore throat. Cardiovascular: No chest pain, no palpitations. Respiratory: No cough, no shortness of breath. Gastrointestinal: No abdominal pain, no vomiting. Genitourinary: No hematuria. Musculoskeletal: + back pain. Skin: No rashes. Neurological: No headache. Smoking Status: Former smoker Physical Exam: General Appearance: Alert and no distress. Eyes: Pupils equal and round no injection. Respiratory: Chest is nontender, lungs are clear to auscultation. Cardiac: regular rate and rhythm. Gastrointestinal: Abdomen is soft and mildly tender to the left upper left lower quadrant, no masses, bowel sounds normal. Musculoskeletal: Neck is supple and nontender. Extremities have full range of motion and are nontender. Skin: No rashes or lesions. Constitutional: Initial Vital Signs Temperature (C) 37 C 08/01/18 20:03 Heart Rate 77 08/01/18 20:03 Respiratory Rate 20 08/01/18 20:03 Blood Pressure 144/99 H 08/01/18 20:03 O2 Sat (%) 95 08/01/18 20:03 O2 Delivery Mode Room Air Allergies/Adverse Reactions: carbamazepine [From Tegretol] Allergy (Verified 08/01/18 20:02) Hives ramelteon [From Rozerem] Allergy (Verified 08/01/18 20:02) Hives vortioxetine hydrobromide [From Brintellix] Allergy (Verified 08/01/18 20:02) Hives anticonvulsant Allergy (Uncoded 08/01/18 20:02) Hives Home Medications: Medication Instructions Recorded Ascorbic Acid [Vitamin C 500 mg 1,000 mg PO DAILY@0700 07/28/15 (*)] Benztropine Mesylate [Cogentin] 0.5 mg PO DAILY 07/28/15 Metoprolol Tartrate [Lopressor 100 100 mg PO BID@07,18 07/28/15 mg (*)] amLODIPine BESYLATE [Norvasc 10 mg 10 mg PO DAILY@07 07/28/15 (*)] clonazePAM [Klonopin (*)] 0.5 mg PO TID@0700,1400,1800 07/28/15 Amantadine HCl [Symmetrel] 100 mg PO BID 12/28/16 Atorvastatin Calcium [Lipitor 20 20 mg PO HS 12/28/16 mg (*)] Dextroamphetamine/Amphetamine 30 mg PO BID@07,12 12/28/16 [Adderall 30 mg Tablet] Divalproex Sodium [Depakote] 1,000 mg PO DAILY@16 12/28/16 Lisinopril [Zestril 40 mg (*)] 40 mg PO DAILY 12/28/16 Melatonin 5 mg PO HS 12/28/16 Ziprasidone HCl [Geodon] 80 mg PO TID 12/28/16 metFORMIN HCL [Glucophage 1000 mg] 1,000 mg PO BIDMEAL 12/28/16 Doxazosin Mesylate [Cardura 4 MG 8 mg PO DAILY 03/07/18 (*)] Ipratropium 0.06% Nasal 1 spray EACHNARE TID 03/07/18 Vraylar 4.5 mg PO DAILY@21 03/07/18 Acetaminophen [Tylenol ES 500 mg 1,000 mg PO BID@07,15 04/14/18 (*)] C/E/Zn/Cu/OM3/DHA/EPA/LUT/ZEAX 1 each PO BID 04/14/18 [Preservision Areds 2 Softgel] Cholecalciferol Vit D3 [Vitamin D3 2,000 units PO DAILY 04/14/18 (*)] Divalproex [Depakote] 1,500 mg PO DAILY@08 04/14/18 Furosemide [Lasix 40 MG (*)] 40 mg PO DAILY PRN 04/14/18 Levothyroxine [Synthroid 50 mcg 50 mcg PO DAILY06 04/14/18 (*)] Multivitamins [Multivitamin (*)] 1 each PO DAILY 04/14/18 [place]-3 Fatty Acids [Fish Oil 1000 1,000 mg PO BID 04/14/18 mg (*)] Zolpidem Tartrate [Ambien] 10 mg PO HS 04/14/18 tiZANidine HCL [Zanaflex] 4 mg PO BID@07,15 04/14/18 Apixaban [Eliquis] 5 mg PO BID #60 tab 05/09/18 Apixaban [Eliquis] 10 mg PO BID #14 tab 05/09/18 Gabapentin [Neurontin 300 MG (*)] 600 mg PO TID@0700,1400,2100 #90 05/09/18 cap Methocarbamol [Robaxin 750 mg (*)] 750 mg PO QID PRN #60 tab 05/09/18 Sennosides/Docusate Sodium 1 - 2 tab PO BID tab 05/09/18 [Senokot-S] oxyCODONE IR [Oxycodone Ir (*)] 5 - 10 mg PO Q4HRS PRN #90 tab 05/09/18 Medical Decision Making - Diagnostics Imaging Results: Imaging Impressions Abdomen/Pelvis CT 08/01/18 20:26 Impression: 1. No nephrolithiasis or hydronephrosis. 2. Constipation. 3. A few sigmoid diverticula, without diverticulitis. 4. No evidence of appendicitis. 5. Lumbar fusion. 6. Bilateral renal cortical scarring possibly from old urinary tract infections. Findings and recommendations discussed with Emergency Department Physician General House Worker, Abran Huggins PA-C, at 2107 hours, on August 01, 2018. Final report concurs with initial preliminary interpretation. Attention: This CT examination is specifically designed to evaluate patients who are clinically suspected of having acute obstructive uropathy. This examination does not use radiographic contrast, and as such, provides only a limited evaluation of the abdomen, pelvis, and retroperitoneum. If there is further clinical suspicion for pathological conditions other than obstructive uropathy, a complete CT evaluation of the abdomen and pelvis utilizing intravenous, oral, and rectal contrast should be considered. ED Course/Re-evaluation: 53-year-old male here with left flank pain found to have constipation by CT scan been there is no evidence of renal colic, UTI, pyelonephritis, cauda equina , epidural abscess. I discussed use stool softeners while taking chronic opiates. Patient is agreeable with this plan. - Data Points Laboratory Results: Laboratory Results 08/01/18 20:27 08/01/18 20:27 08/01/18 08/01/18 20:27 20:27 WBC 7.25 10^3/uL 10^3/uL (3.80-9.50) RBC 4.73 10^6/uL 10^6/uL (4.40-6.38) Hgb 14.2 g/dL g/dL (13.7-17.5) Hct 41.7 % % (40.0-51.0) MCV 88.2 fL fL (81.5-99.8) MCH 30.0 pg pg (27.9-34.1) MCHC 34.1 g/dL g/dL (32.4-36.7) RDW 13.4 % % (11.5-15.2) Plt Count 207 10^3/uL 10^3/uL (150-400) MPV 9.6 fL fL (8.7-11.7) Neut % (Auto) 48.5 % % (39.3-74.2) Lymph % (Auto) 33.9 % % (15.0-45.0) [place] % (Auto) 6.6 % % (4.5-13.0) Eos % (Auto) 9.9 % H % (0.6-7.6) Baso % (Auto) 0.7 % % (0.3-1.7) Nucleat RBC Rel Count 0.0 % % (0.0-0.2) Absolute Neuts (auto) 3.51 10^3/uL 10^3/uL (1.70-6.50) Absolute Lymphs (auto) 2.46 10^3/uL 10^3/uL (1.00-3.00) Absolute Monos (auto) 0.48 10^3/uL 10^3/uL (0.30-0.80) Absolute Eos (auto) 0.72 10^3/uL H 10^3/uL (0.03-0.40) Absolute Basos (auto) 0.05 10^3/uL 10^3/uL (0.02-0.10) Absolute Nucleated RBC 0.00 10^3/uL 10^3/uL (0-0.01) Immature Gran % 0.4 % % (0.0-1.1) Immature Gran # 0.03 10^3/uL 10^3/uL (0.00-0.10) Sodium 135 mEq/L mEq/L (135-145) Potassium 4.5 mEq/L mEq/L (3.3-5.0) Chloride 98 mEq/L mEq/L (97-110) Carbon Dioxide 27 mEq/l mEq/l (22-31) Anion Gap 10 mEq/L mEq/L (8-16) BUN 16 mg/dL mg/dL (7-23) Creatinine 1.0 mg/dL mg/dL (0.7-1.3) Estimated GFR > 60 Glucose 130 mg/dL H mg/dL (70-100) Calcium 9.7 mg/dL mg/dL (8.5-10.4) Medications Given: Discontinued Medications Fentanyl (Sublimaze) 100 mcg IVP EDNOW ONE Stop: 08/01/18 20:28 Last Admin: 08/01/18 20:35 Dose: 100 mcg Sodium Chloride (Ns) 1,000 mls @ 0 mls/hr IV EDNOW ONE; Wide Open PRN Reason: Protocol Stop: 08/01/18 20:38 Last Admin: 08/01/18 20:37 Dose: 1,000 mls Morphine Sulfate (Morphine) 4 mg IVP EDNOW ONE Stop: 08/01/18 21:29 Last Admin: 08/01/18 21:31 Dose: 4 mg Point of Care Test Results: Urine Dip Nitrites (Negative) Negative Blood (Negative) Negative Departure - Departure Disposition: Home, Routine, Self-Care Clinical Impression: Constipation Condition: Good Instructions: Constipation (ED) Additional Instructions: I recommend he start taking 1 cap full of MiraLax daily while taking chronic opiates. Additionally image try fleets enema at home which is [id number] to stimulate bowel movement. Return to the ER for worsening symptoms. Referrals: Tony Krishna MD [Primary Care Provider] - As per Instructions
[2018-08-01 22:25] VITALS: BP 164/99
== END 2018-08-01 22:25 | disposition home or self-care (01) ==
DX: K59.00 Constipation, unspecified (principal); E86.9 Volume depletion, unspecified; Z87.891 Personal history of nicotine dependence
CPT/HCPCS: 74176; 96361; 96374; 96375; 99285; J2270; J3010

== ENCOUNTER 2018-08-03 11:42 | Emergency (ER) | payer OTHER ==
[2018-08-03 11:48] VITALS: BP 158/98
--- NOTE | 2018-08-03 11:49 | EDPHY ---
H & P Time Seen by Provider: 08/03/18 11:48 HPI/ROS: CHIEF COMPLAINT: Left abdominal and back pain HISTORY OF PRESENT ILLNESS: Patient presents to the emergency department today with continued left abdominal and back pain. He was here on 08/01/2018 and had similar symptoms. He had noncontrast CT that showed constipation and no kidney stones or diverticulitis or other abnormality. He took magnesium citrate and has been having diarrhea. He presents today with continued left groin pain radiating to his back. It is better lying down and worse with certain movements. It is not associated with vomiting, he has some diarrhea because he took laxative, but does not have any relation of the diarrhea to the pain. No blood in the diarrhea. Pain is not associated with urinary symptoms or weakness or numbness in the legs. No recent injury or trauma. No skin rash or fever. Symptoms moderate and he took oxycodone and used ice pack with relief. REVIEW OF SYSTEMS: Eye: no change in vision ENT: no sore throat Cardiac: no chest pain or syncope Pulmonary: no cough or SOB Abdomen: HPI Musculoskeletal: HPI Skin: no rash Neuro: no headache Constitutional: no fever : no urinary symptoms or genitourinary symptoms, no testicular pain. No incontinence A comprehensive 10 point review of systems is otherwise negative aside from elements mentioned in the history of present illness. PAST MEDICAL HISTORY: Previous L2- S1 spinal fusion, bipolar disorder, hypertension, diabetes. Sleep apnea, right arm DVT after back surgery. Social history: Here with his mother General Appearance: Alert and conversant, cooperative. Eyes: No scleral icterus. ENT, Mouth: Normal mucous membranes. Respiratory: Normal respiratory effort, breath sounds equal, lungs are clear to auscultation. Cardiovascular: Regular rate and rhythm. Gastrointestinal: Abdomen is soft and non tender. No pulsatile mass, no peritoneal signs, no inguinal hernia palpated. Pain does not change with palpation of his abdomen. Normal male . Neurological: Alert, face symmetric, normal motor and sensory in extremities. Patellar reflexes 2+ symmetric, no clonus. Straight leg raising negative bilaterally. Ambulatory. Skin: Warm and dry, no rashes. No zoster. Musculoskeletal: No peripheral edema. No spinal tenderness. Psychiatric: Not agitated. Emergency Department course/MDM: 1207: Discussed with Emely Concepcion; will see in the office this week. I think this patient is more likely to have L1 radiculopathy. The distribution of his pain is in the appropriate area, it is worse with movements, it is better with sitting down. He is normal abdominal exam and a negative noncontrast CT last visit. I think that arterial or venous clot is unlikely. He does not look toxic. He does not have neurologic deficit. I think that with bipolar disorder and diabetes the potential risk of steroids outweighs potential benefit. He says will be able to have adequate pain control with his current medications and ice pack, will see Neurosurgery in the office this week. Smoking Status: Former smoker Constitutional: Initial Vital Signs Temperature (C) 36.7 C 08/03/18 11:45 Heart Rate 80 08/03/18 11:45 Respiratory Rate 16 08/03/18 11:45 Blood Pressure 158/98 H 08/03/18 11:45 O2 Sat (%) 94 08/03/18 11:45 O2 Delivery Mode Room Air Allergies/Adverse Reactions: carbamazepine [From Tegretol] Allergy (Verified 08/03/18 11:48) Hives ramelteon [From Rozerem] Allergy (Verified 08/03/18 11:48) Hives vortioxetine hydrobromide [From Brintellix] Allergy (Verified 08/03/18 11:48) Hives anticonvulsant Allergy (Uncoded 08/01/18 20:02) Hives Home Medications: Medication Instructions Recorded Ascorbic Acid [Vitamin C 500 mg 1,000 mg PO DAILY@0700 07/28/15 (*)] Benztropine Mesylate [Cogentin] 0.5 mg PO DAILY 07/28/15 Metoprolol Tartrate [Lopressor 100 100 mg PO BID@,18 07/28/15 mg (*)] amLODIPine BESYLATE [Norvasc 10 mg 10 mg PO DAILY@07 07/28/15 (*)] clonazePAM [Klonopin (*)] 0.5 mg PO TID@0700,1400,1800 07/28/15 Amantadine HCl [Symmetrel] 100 mg PO BID 12/28/16 Atorvastatin Calcium [Lipitor 20 20 mg PO HS 12/28/16 mg (*)] Dextroamphetamine/Amphetamine 30 mg PO BID@,12 12/28/16 [Adderall 30 mg Tablet] Divalproex Sodium [Depakote] 1,000 mg PO DAILY@16 12/28/16 Lisinopril [Zestril 40 mg (*)] 40 mg PO DAILY 12/28/16 Melatonin 5 mg PO HS 12/28/16 Ziprasidone HCl [Geodon] 80 mg PO TID 12/28/16 metFORMIN HCL [Glucophage 1000 mg] 1,000 mg PO BIDMEAL 12/28/16 Doxazosin Mesylate [Cardura 4 MG 8 mg PO DAILY 03/07/18 (*)] Ipratropium 0.06% Nasal 1 spray EACHNARE TID 03/07/18 Vraylar 4.5 mg PO DAILY@03/07/18 Acetaminophen [Tylenol ES 500 mg 1,000 mg PO BID@07,04/14/18 (*)] C/E/Zn/Cu/OM3/DHA/EPA/LUT/ZEAX 1 each PO BID 04/14/18 [Preservision Areds 2 Softgel] Cholecalciferol Vit D3 [Vitamin D3 2,000 units PO DAILY 04/14/18 (*)] Divalproex [Depakote] 1,500 mg PO DAILY@08 04/14/18 Furosemide [Lasix 40 MG (*)] 40 mg PO DAILY PRN 04/14/18 Levothyroxine [Synthroid 50 mcg 50 mcg PO DAILY06 04/14/18 (*)] Multivitamins [Multivitamin (*)] 1 each PO DAILY 04/14/18 [place]-3 Fatty Acids [Fish Oil 1000 1,000 mg PO BID 04/14/18 mg (*)] Zolpidem Tartrate [Ambien] 10 mg PO HS 04/14/18 tiZANidine HCL [Zanaflex] 4 mg PO BID@07,15 04/14/18 Apixaban [Eliquis] 5 mg PO BID #60 tab 05/09/18 Apixaban [Eliquis] 10 mg PO BID #14 tab 05/09/18 Gabapentin [Neurontin 300 MG (*)] 600 mg PO TID@0700,1400,2100 #90 05/09/18 cap Methocarbamol [Robaxin 750 mg (*)] 750 mg PO QID PRN #60 tab 05/09/18 Sennosides/Docusate Sodium 1 - 2 tab PO BID tab 05/09/18 [Senokot-S] oxyCODONE IR [Oxycodone Ir (*)] 5 - 10 mg PO Q4HRS PRN #90 tab 05/09/18 Medical Decision Making Differential Diagnosis: Differential considered including but not limited to diverticulitis, surgical abdominal process, arterial occlusion, venous occlusion, cauda equina syndrome, shingles, bowel obstruction, epididymitis or torsion. Departure - Departure Disposition: Home, Routine, Self-Care Clinical Impression: Radiculopathy of lumbar region Back pain Qualifiers: Back pain location: low back pain Chronicity: acute Back pain laterality: left Sciatica presence: unspecified whether sciatica present Qualified Code(s): M54.5 - Low back pain Condition: Good Instructions: Lumbar Radiculopathy (ED) Additional Instructions: No more laxatives. Return for worsening or severe pain or weakness or numbness in your legs. Referrals: Tony Krishna MD [Primary Care Provider] - As per Instructions David Concepcion MD [Medical Doctor] - As per Instructions (see your surgeon in the office this week)
== END 2018-08-03 12:23 | disposition home or self-care (01) ==
DX: M54.16 Radiculopathy, lumbar region (principal); I10 Essential (primary) hypertension; E11.9 Type 2 diabetes mellitus without complications; Z98.1 Arthrodesis status; Z86.718 Personal history of other venous thrombosis and embolism

== ENCOUNTER 2018-08-29 05:49 | Inpatient (IN) | payer OTHER ==
[2018-08-29] MEDS ORDERED: GABAPENTIN 300 MG CAP PO ONE (10:36)
[2018-08-29] MEDS ORDERED: ceFAZolin 2 GM/DEXTROSE 100 ML IV ONE (10:36)
[2018-08-29] MEDS ORDERED: ACETAMINOPHEN 500 MG TAB PO ONE (10:36)
[2018-08-29] MEDS ORDERED: LR 1,000 ML IV ONE (10:37)
[2018-08-29] MEDS ORDERED: BACITRACIN 50,000 UNITS/10 ML SYR IRR ONE (11:03)
[2018-08-29] MEDS ORDERED: THROMBIN (BOVINE) 20,000 UNIT VIAL TP ONE (11:03)
[2018-08-29] MEDS ORDERED: BUPIVACAINE 0.25% 30 ML SDV ONE (11:03)
[2018-08-29] MEDS ORDERED: EPINEPHrine 1 MG/ML INJ ONE (11:04)
[2018-08-29] MEDS ORDERED: CHLORHEXIDINE GLUC HIBICLENS 118 ML BTL TP ONE (11:04)
--- NOTE | 2018-08-29 11:57 | PDHPUP ---
History & Physical Update H&P update statement: This history and physical update is based on an assessment of the patient which was completed after admission or registration (within 24 hours), but prior to the surgery/procedure. H&P update: H&P reviewed & patient examined, no change in patient's condition since H&P completed (Consents signed and site marked. All questions answered. )
[2018-08-29] MEDS ORDERED: MIDAZOLAM 2 MG/2 ML VIAL IVP ONE (12:01)
--- NOTE | 2018-08-29 12:18 | PDANEPAE ---
ANE History of Present Illness Explore lumbar fusion hardware ANE Past Medical History - Cardiovascular History Hx Hypertension: Yes Hx Arrhythmias: No Hx Chest Pain: No Hx Coronary Artery / Peripheral Vascular Disease: No Hx CHF / Valvular Disease: No Hx Palpitations: No Cardiovascular History Comment: hyperlipidemia - Pulmonary History Hx COPD: No Hx Asthma/Reactive Airway Disease: No Hx Recent Upper Respiratory Infection: No Hx Oxygen in Use at Home: No Hx Sleep Apnea: Yes Sleep Apnea Screening Result - Last Documented: Positive Pulmonary History Comment: neto positive- uses cpap - Neurologic History Hx Cerebrovascular Accident: No Hx Seizures: No Hx Dementia: No Neurologic History Comment: lumbar DDD - Endocrine History Hx Diabetes: Yes Obesity: severe Endocrine History Comment: type 2 - Renal History Hx Renal Disorders: Yes Renal History Comment: hx of issues emptying bladder - Liver History Hx Hepatic Disorders: No - Neurological & Psychiatric Hx Hx Neurological and Psychiatric Disorders: Yes Neurological / Psychiatric History Comment: bipolar - Cancer History Hx Cancer: No - Congenital Disorder History Hx Congenital Disorders: Yes Congenital History Comment: KIDNEY CONGENITAL ABNORMALITY - GI History GERD: mild Hx Gastrointestinal Disorders: No Gastrointestinal History Comment: Gas; - Other Health History Other Health History: 1 MISSING TOOTH-LOWER MOLAR. wears glasses. chronic pain. gout - Chronic Pain History Chronic Pain: Yes (BACK PAIN & SHOULDER L; b leg) - Surgical History Prior Surgeries: 05/02/18 exploratory ALIF, redo L5-S1, L2-3 TLIF, PSF l2-s2 with hardware removal with Carlene. 03/10/18 ct guided biopsy l5-s1 with Braden. 02/08/17 anterior ALIF redo with Radha. 08/17/15 l4-5, l5-s1 fusion with marco a. ING HERNIA REPAIR L. KIDNEY SURG CHILDHOOD. SHOULDER R REPLACEMENT. VASECTOMY. COLONOSCOPIES X2. MASSES REMOVED FROM CHEST AREA ANE Review of Systems Review of Systems: - Exercise capacity METS (RN): 3 METS ANE Patient History - Allergies Allergies/Adverse Reactions: carbamazepine [From Tegretol] Allergy (Verified 08/25/18 15:38) Hives ramelteon [From Rozerem] Allergy (Verified 08/25/18 15:38) Hives vortioxetine hydrobromide [From Brintellix] Allergy (Verified 08/25/18 15:38) Hives anticonvulsant Allergy (Uncoded 08/01/18 20:02) Hives - Home Medications Home Medications: Ascorbic Acid [Vitamin C 500 mg (*)] 1,000 mg PO DAILY@0700 07/28/15 [Last Taken 08/25/18] Metoprolol Tartrate [Lopressor 100 mg (*)] 100 mg PO BID@07/28/15 [Last Taken 08/28/18] amLODIPine BESYLATE [Norvasc 10 mg (*)] 10 mg PO DAILY@07/28/15 [Last Taken 08/27/18] clonazePAM [Klonopin (*)] 0.5 mg PO TID@0700,1400,1800 07/28/15 [Last Taken 04:00] Amantadine HCl [Symmetrel] 100 mg PO BID 12/28/16 [Last Taken 08/28/18] Atorvastatin Calcium [Lipitor 20 mg (*)] 20 mg PO HS 12/28/16 [Last Taken ] Dextroamphetamine/Amphetamine [Adderall 30 mg Tablet] 30 mg PO BID@ [Last Taken 1 Week Ago ~08/22/18] Divalproex Sodium [Depakote] 1,000 mg PO DAILY@16 12/28/16 [Last Taken 08/28/18] Lisinopril [Zestril 40 mg (*)] 40 mg PO DAILY 12/28/16 [Last Taken 08/28/18] Ziprasidone HCl [Geodon] 80 mg PO TID 12/28/16 [Last Taken 08/29/18 04:00] metFORMIN HCL [Glucophage 1000 mg] 1,000 mg PO BIDMEAL 12/28/16 [Last Taken ] Ipratropium 0.06% Nasal 1 spray EACHNARE TID 03/07/18 [Last Taken 08/29/18 04:00 ] Vraylar 4.5 mg PO DAILY@03/07/18 [Last Taken 08/28/18] Acetaminophen [Tylenol ES 500 mg (*)] 1,000 mg PO BID@04/14/18 [Last Taken 08/29/18 07:00] Cholecalciferol Vit D3 [Vitamin D3 (*)] 2,000 units PO DAILY 04/14/18 [Last Taken 08/27/18] Divalproex [Depakote] 1,500 mg PO DAILY@20 04/14/18 [Last Taken 08/28/18] Furosemide [Lasix 40 MG (*)] 40 mg PO DAILY PRN 04/14/18 [Last Taken 1 Week Ago ~08/22/18] Levothyroxine [Synthroid 50 mcg (*)] 50 mcg PO DAILY06 04/14/18 [Last Taken ] Multivitamins [Multivitamin (*)] 1 each PO DAILY 04/14/18 [Last Taken 08/27/18] [place]-3 Fatty Acids [Fish Oil 1000 mg (*)] 1,000 mg PO BID 04/14/18 [Last Taken 08/27/18] Zolpidem Tartrate [Ambien] 10 mg PO HS 04/14/18 [Last Taken 08/28/18] Benztropine Mesylate 0.5 mg PO DAILY 08/22/18 [Last Taken 08/28/18] Magnesium Citrate [Magnesium Citrate 300 ml (*)] 300 ml PO ONCE PRN 08/22/18 [ Last Taken 08/27/18] Sennosides/Docusate Sodium [Senokot-S] 1 tab PO BID 08/22/18 [Last Taken ] oxyCODONE IR [Oxycodone Ir (*)] 10 mg PO Q6HRS PRN 08/22/18 [Last Taken 04:00] - NPO status NPO Status: no food or drink >8 hours NPO Since - Liquids (Date): 08/29/18 NPO Since - Liquids (Time): 04:00 NPO Since - Solids (Date): 08/29/18 NPO Since - Solids (Time): 04:00 - Smoking Hx Smoking Status: Former smoker - Family Anes Hx Family Hx Anesthesia Complications: NEG ANE Labs/Vital Signs - Vital Signs Blood Pressure: 133/96 Heart Rate: 69 Respiratory Rate: 18 O2 Sat (%): 92 Height: 182.88 cm Weight: 140.614 kg ANE Physical Exam - Airway Neck exam: decreased ROM Mallampati Score: Class 4 Mouth exam: poor dentition - Pulmonary Pulmonary: no respiratory distress, no rales or rhonchi - Cardiovascular Cardiovascular: regular rate and rhythym, no murmur, rub, or gallop - ASA Status ASA Status: III ANE Anesthesia Plan Anesthesia Plan: general endotracheal anesthesia
[2018-08-29] MEDS ORDERED: PROPOFOL/EMULSION 500 MG/50 ML BOTTLE IV ONE ×3 (12:26)
[2018-08-29] MEDS ORDERED: KETAMINE 500 MG/10 ML VIAL ONE (12:26)
[2018-08-29] MEDS ORDERED: fentaNYL 250 MCG/5 ML INJ ONE ×2 (12:26)
[2018-08-29] MEDS ORDERED: morphINE PF 0.2 MG in SYRINGE INTRATHECAL 1 SYR IT ONE (13:30)
[2018-08-29] MEDS ORDERED: ALBUMIN 5% 250 ML BOTTLE IV ONE (13:33)
[2018-08-29] MEDS ORDERED: PETROLAT,WHT/MIN OIL/SOD CHL 3.5 GM OPHT.OINT ONE (13:45)
[2018-08-29] MEDS ORDERED: FUROSEMIDE 40 MG TAB PO PRN (15:24)
[2018-08-29] MEDS ORDERED: MAGNESIUM CITRATE 300 ML BOTTLE PO PRN (15:24)
[2018-08-29] MEDS ORDERED: ONDANSETRON 4 MG/2 ML VIAL ONE (15:25)
[2018-08-29] MEDS ORDERED: PHENYLEPHRINE HCL 100 MCG/ML SYR ONE (15:25)
[2018-08-29] MEDS ORDERED: VASOPRESSIN 20 UNIT/ML VIAL ONE (15:25)
[2018-08-29] MEDS ORDERED: GLYCOPYRROLATE 0.2 MG/1 ML VIAL ONE (15:25)
[2018-08-29] MEDS ORDERED: DEXAMETHASONE 4 MG/ML VIAL ONE (15:25)
[2018-08-29] MEDS ORDERED: HYDROmorphONE/DILAUDID 1 MG/ML INJ IVP PRN (15:29)
[2018-08-29] MEDS ORDERED: POLYETHYLENE GLYCOL 3350 17 GM PKT PO PRN (15:29)
[2018-08-29] MEDS ORDERED: LACTULOSE 20 GM/30 ML UDCUP PO PRN (15:29)
[2018-08-29] MEDS ORDERED: MAGNESIUM HYDROXIDE 30 ML UDCUP PO PRN (15:29)
[2018-08-29] MEDS ORDERED: BISACODYL 10 MG SUPP PR PRN (15:29)
[2018-08-29] MEDS ORDERED: diphenhydrAMINE 25 MG CAP PO PRN (15:29)
--- NOTE | 2018-08-29 15:29 | GOP ---
DATE OF OPERATION: 08/29/2018 SURGEON: David Concepcion MD [employer] LOAD DRIVER: Amalia Evangelista, PAC. ANESTHESIA: General. PREOPERATIVE DIAGNOSIS: 1. L2-L3 left-sided epidural compressive lesion. 2. Progressive lower extremity radiculopathy and intractable abdominal and leg pain. 3. History of prior fusion, L2-S2. POSTOPERATIVE DIAGNOSIS: 1. L2-L3 left-sided epidural compressive lesion. 2. Progressive lower extremity radiculopathy and intractable abdominal and leg pain. 3. History of prior fusion, L2-S2. PROCEDURE PERFORMED: 1. Exploration and left L2/3 epidural lesion resection with decompression of spinal cord. 2. Use of intraoperative 3D navigation. 3. Use of intraoperative fluoroscopy, less than 1 hour physician time. 4. Use of neuromonitoring. FINDINGS: epidural compressive lesion at the left L2/3 level SPECIMENS: The epidural lesion was sent to pathology and microbiology for further analysis. ESTIMATED BLOOD LOSS: 100 mL. INDICATIONS: This is a very pleasant gentleman, well known to me from prior multiple spinal fusions. He presented to the emergency department with severe onset of abdominal pain and left lower extremity radiculopathy and weakness. Imaging demonstrated an epidural lesion, compressive in nature and calcified in the L2-L3 epidural space. After discussion of the risks, benefits, and treatment alternatives, we decided to proceed with surgical exploration and resection of lesion. He presents now for that surgical intervention. DESCRIPTION OF PROCEDURE: The patient was brought to the operating theater and underwent general endotracheal anesthesia without complication. He had Venodynes, DAMON hose, and the appropriate lines placed by Anesthesia. He was flipped prone on the Karthik table and all bony processes inspected and padded. The upper aspect of the previous incision was marked and prepped and draped in the usual sterile surgical fashion. A time-out was completed per protocol. The patient received antibiotics within 1 hour of incision. A small incision was made at the superior aspect of the incision and taken down the midline to the spinous process. We attached the 3D Stealth navigation clamp to the spinous process. We completed a 3D stealth navigation spin. Using 3D navigation, we then continued with our dissection to the L2-3 level on the left side and to to the epidural space. The microscope was brought into the field to assist with microscopic dissection and maintain illumination and magnification. The patient had evidence of an epidural compressive lesion which was white in nature and was fibrous in nature. I continued with the dissection using the angled down pushing, up angled and straight curettes. We continued with the dissection, we felt that everything was well decompressed. Additional 3D Stealth Navigation spin demonstrated some remnants of the lesion within that space, however I was concerned about causing a possible dural tear or spinal nerve injury and therefore left a small remnant shell of the lesion in hopes that this would allow the thecal sac to re expand within that space. Once I felt that everything was well decompressed, we obtained hemostasis with the bipolar. The wound was irrigated copiously with bacitracin irrigation. The lesion was sent off to both pathology and microbiology for further analysis. The wound was then closed in multiple layers using Vicryl sutures in deep layers and Dermabond for the skin. The patient's wounds were dressed sterilely. He was then flipped supine onto the transport cart, where he was awakened, extubated, and taken to recovery room in stable condition. There were no complications and no noted changes on neuromonitoring throughout the procedure. The use of the surgical corsetier was important to retract and protect the critical tissues during surgery. COMPLICATION: None. /[id number]/MODL MTDD
[2018-08-29] MEDS ORDERED: NS 1,000 ML IV SCH (15:30)
--- NOTE | 2018-08-29 15:43 | POSTOPPROG ---
Post Op Note Date of Operation: 08/29/18 Surgeon: David Concepcion Head Sawyer: ANA Guzman Anesthesiologist: Becky Micheal MD Anesthesia: GET(General Endotracheal), Local (Specify) Pre-op Diagnosis: lumbar stenosis Post-op Diagnosis: lumbar stenosis Indication: leg pain Procedure: L2/3 exploration/hardware exploration Findings: none Inf/Abcess present in the surg proc area at time of surgery?: No Depth: Deep Incisional (Fascial) EBL: 100-500 Total fluids administered: see anesthesia record Complications: none
--- NOTE | 2018-08-29 15:47 | SOAPPROG ---
SOAP Progress Note Assessment/Plan: Post Op Visit: S: Awake and alert, NAD. Pt with expected lower back pain O: AFVSS/PERRLA/EOMI no droop CN 2-12 grossly intact +lt touch 5/5 BUE/BLE = CDI A/P: 53 yo male that is s/p L2/3 lami/edilma with hardware exploration -orders in place -call with any questions or concerns -pt seen by Dr Concepcion as well -PT/OT -ok for Eliquis POD #5 -RN updated 08/29/18 15:43 Objective: Vital Signs Temp Pulse Resp BP Pulse Ox 36.8 C 69 18 133/96 H 92 08/29/18 10:42 08/29/18 12:18 08/29/18 12:18 08/29/18 12:18 08/29/18 12:18 ICD10 Worksheet Patient Problems: Problems Problem Status Onset SATHISH (acute kidney injury) Acute Arthrodesis status Acute Diabetes Acute HTN (hypertension) Acute Lumbago due to displacement of intervertebral disc Acute Lumbar stenosis Acute Pain Acute
[2018-08-29] MEDS ORDERED: NS 500 ML IV PRN (15:55)
[2018-08-29] MEDS ORDERED: ALBUTEROL 3 ML DEYVIAL IH PRN (15:55)
[2018-08-29] MEDS ORDERED: NALOXONE HCL 0.4 MG/ML INJ IVP PRN (15:55)
[2018-08-29] MEDS ORDERED: HYDROmorphONE/DILAUDID 2 MG/ML INJ IVP PRN (15:55)
[2018-08-29] MEDS ORDERED: DIAZEPAM 5 MG/ML 1 ML SYR IVP PRN (15:55)
[2018-08-29] MEDS ORDERED: fentaNYL 100 MCG/2 ML INJ IVP PRN (15:55)
[2018-08-29] MEDS ORDERED: DIAZEPAM 5 MG/ML 1 ML SYR ONE (16:31)
--- NOTE | 2018-08-29 16:39 | POSTANESTH ---
Post Anesthetic Evaluation Cardiovascular Status: Normal, Stable Respiratory Status: Normal, Stable Level of Consciousness/Mental Status: Can Participate in Eval Pain Control: Adequate, Prn Tx Ordered Nausea/Vomiting Control: Adequate, Prn Tx Ordered Complications Possibly Related to Anesthesia: None Noted
--- NOTE | 2018-08-29 16:45 | PDMN ---
Medical Necessity Medical necessity: [facility] IP only surgery; cpt [id number] Lum Lami [id number] Removal of Posterior Spinal Instrumentation (L2/3 Lami w/hardware exploration)
[2018-08-29] MEDS: DIVALPROEX NA 500 MG TAB PO SCH ×2 (17:30→20:49)
[2018-08-29] MEDS: metFORMIN HCL 500 MG TAB PO SCH (18:04)
[2018-08-29] MEDS: clonazePAM 0.5 MG TAB PO SCH (18:04)
[2018-08-29] MEDS: METOPROLOL TARTRATE 100 MG TAB PO SCH (18:04)
[2018-08-29] MEDS: ZIPRASIDONE HCL 40 MG CAP PO SCH (18:47)
[2018-08-29] MEDS: oxyCODONE IR 5 MG TAB PO PRN (20:52)
[2018-08-29] MEDS: FAMOTIDINE 20 MG TAB PO SCH (20:52)
[2018-08-29] MEDS: TAMSULOSIN HCL 0.4 MG CAP PO SCH (20:52)
[2018-08-29] MEDS: AMANTADINE HCL 100 MG CAP PO SCH (20:52)
[2018-08-29] MEDS: SENNOSIDES/DOCUSATE SODIUM TAB PO SCH (20:52)
[2018-08-29] MEDS: ATORVASTATIN CALCIUM 20 MG TAB PO SCH (20:52)
[2018-08-29] MEDS: GABAPENTIN 300 MG CAP PO SCH (20:52)
[2018-08-29] MEDS: ZOLPIDEM TARTRATE 5 MG TAB PO SCH (20:53)
[2018-08-29] MEDS: ceFAZolin 2 GM/DEXTROSE 100 ML IV SCH (21:06)
[2018-08-30] MEDS: IPRATROPIUM 0.06% NASAL SPRAY EACHNARE SCH ×4 (00:12→20:43)
[2018-08-30] MEDS: ZIPRASIDONE HCL 40 MG CAP PO SCH ×4 (00:14→20:47)
[2018-08-30] MEDS: VRAYLAR 4.5 MG PO SCH ×2 (00:19→20:47)
[2018-08-30 04:51] LABS: PLATELET COUNT 180 10^3/uL (150-400)
[2018-08-30] MEDS: LEVOTHYROXINE 50 MCG TAB PO SCH (05:05)
[2018-08-30] MEDS: ceFAZolin 2 GM/DEXTROSE 100 ML IV SCH (05:05)
[2018-08-30] MEDS: oxyCODONE IR 5 MG TAB PO PRN ×4 (05:27→20:52)
[2018-08-30] MEDS: METHOCARBAMOL 750 MG TAB PO PRN ×2 (05:27)
[2018-08-30] MEDS: ACETAMINOPHEN 500 MG TAB PO SCH ×2 (06:38→13:56)
[2018-08-30] MEDS: GABAPENTIN 300 MG CAP PO SCH ×3 (06:39→20:46)
[2018-08-30] MEDS: ADDERALL 20 MG TAB PO SCH ×2 (06:39→12:04)
[2018-08-30] MEDS: METOPROLOL TARTRATE 100 MG TAB PO SCH ×2 (06:42→17:15)
[2018-08-30] MEDS: clonazePAM 0.5 MG TAB PO SCH ×3 (06:43→17:15)
--- NOTE | 2018-08-30 06:55 | NEUSURGPN ---
Date of Surgery: 08/29/18 Post Op Day: 1 Assessment/Plan: Assessment: 53 yo male that is s/p L2/3 lami/edilma with hardware exploration POD # 1 Plan: -s/p L spine exploration and decompression-pt with expected lower back pain-LE better -pt states that BLE feel fine with improvement of pain but continued numbness that is better overall -orders in place -PT/OT-CPM -plan to work with therapies today and pain control with plans for dc tomorrow -will await for PT/OT/Case management to see what his needs are after dc -call with any questions or concerns -ok for Eliquis POD #5 -RN updated -pt understands and agrees Subjective: Awake and alert. NAD. Eating/drinking and voiding. No martinez/neck/chest/abd or gu complaints. Objective: AAO x 3, PERRLA/EOMI no droop CN 2-12 grossly intact +lt touch 5/5 BUE/BLE = CDI Neuro Check Frequency: per routine Urinary Catheter in Place: No - Physician Discussed Patient with : Carlene Neurosurgery Physical Exam - Vitals, I&O, Labs I and O 08/29/18 08/30/18 08/31/18 05:59 05:59 05:59 Intake Total 3610 Output Total 2600 Balance 1010 Weight 140.614 kg Intake: Oral (ml) 500 IV Intake (ml) 3110 Output: Urine (ml) 2500 Catheter 500 Toilet 2000 Estimated Blood Loss (ml) 100 Other: Intake Quantity Yes Sufficient Bladder Scan Volume (ml) 775 Microbiology 08/29/18 14:18 Gram Stain - Final Back - Tissue Vital Signs Temp Pulse Resp BP Pulse Ox 36.8 C 68 18 135/79 H 97 08/30/18 03:57 08/30/18 06:42 08/30/18 03:57 08/30/18 06:42 08/30/18 03:57 Laboratory Results 08/30/18 04:25 08/30/18 04:25 ICD10 Worksheet Patient Problems: Problems Problem Status Onset SATHISH (acute kidney injury) Acute Arthrodesis status Acute Diabetes Acute HTN (hypertension) Acute Lumbago due to displacement of intervertebral disc Acute Lumbar stenosis Acute Pain Acute
[2018-08-30] MEDS: SENNOSIDES/DOCUSATE SODIUM TAB PO SCH ×2 (08:00→20:45)
[2018-08-30] MEDS: FAMOTIDINE 20 MG TAB PO SCH ×2 (08:00→20:44)
[2018-08-30] MEDS: LISINOPRIL 40 MG TAB PO SCH (08:01)
[2018-08-30] MEDS: BENZTROPINE MESYLATE 1 MG TAB PO SCH (08:01)
[2018-08-30] MEDS: metFORMIN HCL 500 MG TAB PO SCH ×2 (08:01→17:15)
[2018-08-30] MEDS: AMANTADINE HCL 100 MG CAP PO SCH ×2 (08:01→20:45)
--- NOTE | 2018-08-30 14:12 | ASMTCMCOM ---
CM Note CM Note Notes: Pt is s/p a planned L2/3 laminectomy and decompression. PT is recommending home care. Discussed with pt and he would like to have [facility]. Referral sent via [employer]. Pt's mother will be staying with him after he discharges home. CM will continue to follow for d/c needs. Date Signed: 08/30/2018 02:11 PM Electronically Signed By:MICHELE Ospina
[2018-08-30] MEDS: DIVALPROEX NA 500 MG TAB PO SCH ×2 (16:18→20:46)
[2018-08-30] MEDS: ATORVASTATIN CALCIUM 20 MG TAB PO SCH (20:45)
[2018-08-30] MEDS: TAMSULOSIN HCL 0.4 MG CAP PO SCH (20:45)
[2018-08-30] MEDS: ZOLPIDEM TARTRATE 5 MG TAB PO SCH (20:45)
[2018-08-31] MEDS: METHOCARBAMOL 750 MG TAB PO PRN (06:09)
[2018-08-31] MEDS: GABAPENTIN 300 MG CAP PO SCH (06:09)
[2018-08-31] MEDS: LEVOTHYROXINE 50 MCG TAB PO SCH (06:09)
[2018-08-31] MEDS: ACETAMINOPHEN 500 MG TAB PO SCH (06:10)
[2018-08-31] MEDS: ADDERALL 20 MG TAB PO SCH (06:19)
--- NOTE | 2018-08-31 07:32 | NEUSURGPN ---
Date of Surgery: 08/29/18 Post Op Day: 2 Assessment/Plan: Assessment: 53 yo male that is s/p L2/3 lami/edilma with hardware exploration POD # 2 Plan: -s/p L spine exploration and decompression-pt with expected lower back pain-LE better -pt states that BLE feel fine with improvement of pain but continued numbness that is better overall as well -orders in place -K was 5.7-pending K this am -PT/OT-CPM -plan to work with therapies today with plans for dc today -PT/OT/Case management-HHC arranged -call with any questions or concerns -ok for Eliquis POD #5-pt walking well in hallway -RN updated -pt understands and agrees Subjective: Awake and alert. NAD. Eating/drinking and voiding. No f/c/n/v/d. No martinez/neck/ chest/abd or gu complaints. Objective: AAO x 3, PERRLA/EOMI no droop CN 2-12 grossly intact +lt touch 5/5 BUE/BLE = CDI Neuro Check Frequency: per routine Urinary Catheter in Place: No - Physician Discussed Patient with Dr.: Carlene Neurosurgery Physical Exam - Vitals, I&O, Labs I and O 08/30/18 08/31/18 09/01/18 05:59 05:59 05:59 Intake Total 3610 450 500 Output Total 2600 2750 800 Balance 1010 -2300 -300 Weight 140.614 kg Intake: Oral (ml) 500 450 500 IV Intake (ml) 3110 Output: Urine (ml) 2500 2750 800 Catheter 500 Toilet 2000 2750 800 Estimated Blood Loss (ml) 100 Other: Intake Quantity Yes Sufficient Number of Voids Toilet 1 Bladder Scan Volume (ml) 775 Microbiology 08/29/18 14:18 Mycobacterial Smear (JOSÉ MIGUEL) - Final Back - Tissue 08/29/18 14:18 Gram Stain - Final Back - Tissue Vital Signs Temp Pulse Resp BP Pulse Ox 36.9 C 82 16 131/71 H 93 08/31/18 02:56 08/31/18 02:56 08/31/18 02:56 08/31/18 02:56 08/31/18 02:56 Laboratory Results 08/30/18 04:25 08/30/18 04:25 ICD10 Worksheet Patient Problems: Problems Problem Status Onset SATHISH (acute kidney injury) Acute Arthrodesis status Acute Diabetes Acute HTN (hypertension) Acute Lumbago due to displacement of intervertebral disc Acute Lumbar stenosis Acute Pain Acute
--- NOTE | 2018-08-31 07:50 | PDIAF ---
- Diagnosis Diagnosis: s/p KAMRAN/decompression L2/3 Code Status: Full Code - Medication Management Discharge Medications: Medications to Continue on Transfer Ascorbic Acid [Vitamin C 500 mg (*)] 1,000 mg PO DAILY@0700 07/28/15 [Last Taken 08/25/18] Metoprolol Tartrate [Lopressor 100 mg (*)] 100 mg PO BID@07/28/15 [Last Taken 08/28/18] amLODIPine BESYLATE [Norvasc 10 mg (*)] 10 mg PO DAILY@07/28/15 [Last Taken 08/27/18] clonazePAM [Klonopin (*)] 0.5 mg PO TID@0700,1400,1800 07/28/15 [Last Taken 04:00] Amantadine HCl [Symmetrel] 100 mg PO BID 12/28/16 [Last Taken 08/28/18] Atorvastatin Calcium [Lipitor 20 mg (*)] 20 mg PO HS 12/28/16 [Last Taken ] Dextroamphetamine/Amphetamine [Adderall 30 mg Tablet] 30 mg PO BID@ [Last Taken 1 Week Ago ~08/22/18] Divalproex Sodium [Depakote] 1,000 mg PO DAILY@16 12/28/16 [Last Taken 08/28/18] Ziprasidone HCl [Geodon] 80 mg PO TID 12/28/16 [Last Taken 08/29/18 04:00] metFORMIN HCL [Glucophage 1000 mg] 1,000 mg PO BIDMEAL 12/28/16 [Last Taken ] Ipratropium 0.06% Nasal 1 spray EACHNARE TID 03/07/18 [Last Taken 08/29/18 04:00 ] Vraylar 4.5 mg PO DAILY@03/07/18 [Last Taken 08/28/18] Acetaminophen [Tylenol ES 500 mg (*)] 1,000 mg PO BID@,04/14/18 [Last Taken 08/29/18 07:00] Cholecalciferol Vit D3 [Vitamin D3 (*)] 2,000 units PO DAILY 04/14/18 [Last Taken 08/27/18] Divalproex [Depakote] 1,500 mg PO DAILY@20 04/14/18 [Last Taken 08/28/18] Furosemide [Lasix 40 MG (*)] 40 mg PO DAILY PRN 04/14/18 [Last Taken 1 Week Ago ~08/22/18] Levothyroxine [Synthroid 50 mcg (*)] 50 mcg PO DAILY06 04/14/18 [Last Taken ] Multivitamins [Multivitamin (*)] 1 each PO DAILY 04/14/18 [Last Taken 08/27/18] [place]-3 Fatty Acids [Fish Oil 1000 mg (*)] 1,000 mg PO BID 04/14/18 [Last Taken 08/27/18] Zolpidem Tartrate [Ambien] 10 mg PO HS 04/14/18 [Last Taken 08/28/18] Gabapentin [Neurontin 300 MG (*)] 600 mg PO TID@0700,1400,2100 #90 cap 05/09/18 [Last Taken 08/29/18 04:00] Methocarbamol [Robaxin 750 mg (*)] 750 mg PO QID PRN #60 tab 05/09/18 [Last Taken 08/29/18 04:00] Benztropine Mesylate 0.5 mg PO DAILY 08/22/18 [Last Taken 08/28/18] Magnesium Citrate [Magnesium Citrate 300 ml (*)] 300 ml PO ONCE PRN 08/22/18 [ Last Taken 08/27/18] Apixaban [Eliquis] 5 mg PO BID #60 tab 08/31/18 [Last Taken 08/27/18] Enoxaparin [Lovenox 40 MG (*)] 40 mg SC BID #5 syr 08/31/18 [Last Taken Unknown] Methocarbamol [Robaxin 750 mg (*)] 750 mg PO QID PRN #40 tab 08/31/18 [Last Taken Unknown] Sennosides/Docusate Sodium [Senokot-S] 1 tab PO BID #30 tab 08/31/18 [Last Taken Unknown] Tamsulosin HCl [Flomax 0.4 MG (*)] 0.4 mg PO HS 5 Days #7 cap 08/31/18 [Last Taken Unknown] oxyCODONE IR [Oxycodone Ir (*)] 10 mg PO Q4H PRN #60 tab 08/31/18 [Last Taken Unknown] Scheme Technician Antibiotics: none Additional Medication Instructions: Start Eliquis again on 09/03. hold lisinopril and follow up with Dr Krishna for a recheck Discharge Medications: Refer to the Discharge Home Medication list for PRN reason. PICC Care - Routine: N/A - Orders Services needed: Home Care, Physical Therapy, Occupational Therapy Home Care Face to Face: I certify that this patient was under my care and that I had the required [id number] encounter meeting the encounter requirements on the discharge day. My findings support the fact that the patient is homebound as defined in Home Care Face to Face Continued: CMS Chapter 7 Medicare Benefits Manual 30.1.1 , The condition of the patient is such that there exists a normal inability to leave home and consequently, leaving home would require a considerable and taxing effort. Isolation Type: None Oxygen: to keep O2 sat above 90% Diet Recommendation: no restrictions on diet Diet Texture: Regular Texture Diet Tube feeding: n/a Mejia: Not applicable Additional Instructions: HOLD THE LISINOPRIL Take medications as directed See Dr Krishna this week for a recheck of your blood pressure medications as well as a recheck of your potassium No bending or twisting Resume Eliquis on 09/03-sat - Follow Up Care Current Providers and Referrals: Tony Krishna MD [Primary Care Provider] - (follow up this week ) David Concepcion MD [Medical Doctor] - (follow up in 2 weeks)
--- NOTE | 2018-08-31 09:22 | ASDISCHSUM ---
Discharge Information Plan Status:Home with Home Health Medically Cleared to Leave:08/31/2018 Discharge Date:08/31/2018 CM D/C Disposition:Home Health Service ADT D/C Disposition:[id number] Projected Discharge Date:08/31/2018 11:00 AM Transportation at D/C:Family Discharge Delay Reason: Follow-Up Date:08/31/2018 11:00 AM Discharge Slot:1 - 8:01 am - 12:00 noon Final Diagnosis:S/P Lami L2/3 hardware exploration Placement Information Referral Type:*Home Health Care Services Referral ID:[id number] Provider Name:[facility] [place] Address 1:[address] [place] [address] Address 2: City:[place] Selection Factors: State:[place] Patient Contact Information Contact Name:JEN Relationship:Daughter Address: Work Phone: City: [facility] Phone: [facility]/Zip Code: Email: Financial Information Financial Class:Medicare Primary Plan Desc:MEDICARE INPATIENT Primary Plan Number:[id number] Secondary Plan Desc:RAYMOND INDEMNI Secondary Plan Number:[id number] Assessment Information LACE LACE Length of stay for Answers: 2 days current admission Acuity / Level of Answers: Yes Care: Did the patient have an inpatient admission? Comorbidities - select Answers: Diabetes (uncontrolled or all that apply controlled) Other Notes: sleep apnea, HTN, kidne y disease # of Emergency department Answers: 1-2 visits in the last 6 months Social determinants Answers: Mental health diagnosis (anxiety, depression, pers onality disorders, etc.) Score: 11 Date Signed: 08/31/2018 09:22 AM Electronically Signed By:Philomena Lopez LCSW [facility] CM Progress Note CM Note CM Note Notes: Pt is s/p a planned L2/3 laminectomy and decompression. PT is recommending home care. Discussed with pt and he would like to have [facility]. Referral sent via [employer]. Pt's mother will be staying with him after he discharges home. CM will continue to follow for d/c needs. Date Signed: 08/30/2018 02:11 PM Electronically Signed By:MICHELE Ospina Case Management Discharge Plan Note Case Management Discharge Discharge Order Complete? Answers: Yes Patient to Obtain Answers: via Family Medications Transportation Arranged Answers: Family/Friends Transport will Pick (Date 08/31/2018 11:00 AM & Time) Faxed Final Orders Answers: Yes Notes: [facility] Family Notified Answers: Yes Notes: Mother to transport Discharge Comments Notes: Patient has been discharged. To go home with [facility]. Mother to stay with him. Date Signed: 08/31/2018 09:21 AM Electronically Signed By:Philomena Lopez LCSW Intervention Information
[2018-08-31] MEDS: SENNOSIDES/DOCUSATE SODIUM TAB PO SCH (09:39)
[2018-08-31] MEDS: ZIPRASIDONE HCL 40 MG CAP PO SCH (09:39)
[2018-08-31] MEDS: AMANTADINE HCL 100 MG CAP PO SCH (09:39)
[2018-08-31] MEDS: METOPROLOL TARTRATE 100 MG TAB PO SCH (09:40)
[2018-08-31] MEDS: BENZTROPINE MESYLATE 1 MG TAB PO SCH (09:40)
[2018-08-31] MEDS: oxyCODONE IR 5 MG TAB PO PRN ×2 (09:42→12:36)
[2018-08-31] MEDS: clonazePAM 0.5 MG TAB PO SCH (09:42)
[2018-08-31] MEDS: metFORMIN HCL 500 MG TAB PO SCH (09:43)
[2018-08-31] MEDS: IPRATROPIUM 0.06% NASAL SPRAY EACHNARE SCH (09:43)
[2018-08-31] MEDS: FAMOTIDINE 20 MG TAB PO SCH (09:43)
[2018-08-31] MEDS: LISINOPRIL 40 MG TAB PO SCH (10:58)
[2018-08-31 11:15] VITALS: BP 105/82
[2018-09-01] MEDS ORDERED: ENOXAPARIN 40 MG/0.4 ML SYR SC SCH (09:00)
--- NOTE | 2018-09-05 18:45 | GDS ---
ADMITTING DIAGNOSIS: Lumbar radiculopathy. DISCHARGE DIAGNOSIS: Status post L2-L3 laminectomy and diskectomy with hardware exploration. DISPOSITION: To home with home health care. HOSPITAL COURSE: The patient is a 53-year-old male patient who was seen in our clinic as an outpatie nt and has previously undergone several multiple spinal fusions with both Dr. Hernandez and with Dr. Hiram lizama. Most recent fusion surgery included extension of the fusion up to L2 through S2 with TLIF and d ecompression at the L2-3 level. The patient presented to the emergency room recently with severe ons et of abdominal pain and left lower extremity radiculopathy. He then began to develop weakness. Christina ging demonstrated an epidural lesion that was compressive and calcified in the L2-3 epidural space. After discussion of risks, benefits and treatment alternatives, the patient elected to proceed forth with surgical intervention in the way of a lumbar hardware exploration with resection of L2-3 left-si ded compressive lesion and redo decompression. The procedure was performed by Dr. David Concepcion, for which there were no known complications. Please see his operative report for further details. Afte r the operation, the patient once in stable condition was transferred from the operating room to the PACU and from the PACU to the postsurgical floor. While on the floor, patient received school physical therapist apy, occupational therapy, pain management, and DVT prophylaxis. All drains and catheters were remov ed prior to discharge. On August 31, 2018, the patient's pain was well managed. He was cleared by therapies and he was subsequently discharged to home with home health care. Surgical specimen was ob tained at the time of surgery and pathology was consistent with disk material. DISCHARGE INSTRUCTIONS: Diet as tolerated. Activity: No bending, lifting, or twisting. Patient to keep his incision clean and dry and well covered. MEDICATIONS: Please see the medication reconciliation. Patient was instructed to resume his Eliquis on postoperative day number #5. FOLLOWUP: The patient has been asked to follow up with Dr. Concepcion in the office in approximately 2-3 weeks. We have asked the patient to call sooner with any additional questions or concerns. /[id number]/MODL
== END 2018-08-31 13:01 | disposition home health service (06) | DRG 30 ==
LOC: F3N 05:49
PROVIDERS: ADMIT Neurological Surgery; ATTEND Neurological Surgery
PROC: 00NY0ZZ Release Lumbar Spinal Cord, Open Approach (ICD-10-PCS; principal; 2018-08-29 08:00)
PROC: 00CU0ZZ Extirpation of Matter from Spinal Canal, Open Approach (ICD-10-PCS; principal; 2018-08-29 08:00)
DX: G95.89 Other specified diseases of spinal cord (principal); G47.30 Sleep apnea, unspecified; E11.9 Type 2 diabetes mellitus without complications; I10 Essential (primary) hypertension; E78.5 Hyperlipidemia, unspecified; E03.9 Hypothyroidism, unspecified; F31.9 Bipolar disorder, unspecified; Z98.1 Arthrodesis status
CPT/HCPCS: 97110-GP; 97161-GP; 97165-GO; G8978-GP-CI; G8979-GP-CI; G8980-GP-CI; G8987-GO-CI; G8988-GO-CI; G8989-GO-CI; J0171; J0690; J1100; J2250; J2270; J2274; J2370; J2405; J2704; J3010; J3360; P9041

== ENCOUNTER → 2018-10-15 | Outpatient (CLI) | payer OTHER ==
[~2018-10-15] MED LIST: IOPAMIDOL (ISOVUE-M 200) 20 ML VIAL ONE; LIDOCAINE 1% 300 MG/30 ML SDV ONE
[2018-10-15 10:26] LABS: INR 0.92 (0.83-1.16); PROTIME(PATIENT) 12.6 SEC (12.0-15.0)
== END ==
LOC: FIMAGING 09:15
PROVIDERS: ATTEND Physician Assistant Surgical
PROC: 3E0R3KZ Introduction of Other Diagnostic Substance into Spinal Canal, Percutaneous Approach (ICD-10-PCS; principal; 2018-10-15)
DX: T84.216A Breakdown (mechanical) of internal fixation device of vertebrae, initial encounter (principal); M48.061 Spinal stenosis, lumbar region without neurogenic claudication; M48.07 Spinal stenosis, lumbosacral region; M51.27 Other intervertebral disc displacement, lumbosacral region; M46.97 Unspecified inflammatory spondylopathy, lumbosacral region; Y82.9 Unspecified medical devices associated with adverse incidents
CPT/HCPCS: 62284; 72132; 72265; Q9966

== ENCOUNTER → 2019-04-22 | Outpatient (CLI) | payer OTHER | LOC: EMCIMAGING 11:34 ==